=== PATIENT | female | born 1985 | race Caucasian/White ===

== ENCOUNTER 2022-07-13 21:16 | Emergency (ER) | payer BC, SELFPAY ==
[2022-07-13 21:24] VITALS: BP 176/114; PULSE 80; RESP 16; TEMP 36.5; O2SAT 99
--- NOTE | 2022-07-13 22:20 | ED.NAVMDI ---
HPI - Nausea/Vomiting/Diarrhea General Chief complaint: Nausea/Vomiting Stated complaint: Possible Food Poisoning, Vomiting Time Seen by Provider: 07/13/22 21:44 History of Present Illness HPI Narrative: This 36-year-old female comes in with headache, nausea, and vomiting that began this afternoon. She states that she does have a history of migraines but this headache with associated generalized body aches and pains feels somewhat different. She does not report any fevers or sign of infection. She reports some generalized abdominal pain. Related Data Home Medications Medication Instructions Recorded Confirmed trazodone 50 mg tablet 50 mg PO 02/13/22 06/05/22 Previous Rx's Medication Instructions Recorded triamcinolone acetonide 0.025 % 1 applic topical BID #15 grams 02/13/22 topical ointment sumatriptan 20 mg/actuation nasal 20 mg intranasal Q2H PRN migraine 04/05/22 spray headache #6 ea dextroamphetamine-amphetamine 10 10 mg PO QDAY #30 tabs 05/03/22 mg tablet (Adderall) dextroamphetamine-amphetamine 10 10 mg PO QDAY #30 tabs 05/03/22 mg tablet (Adderall) dextroamphetamine-amphetamine 10 10 mg PO QDAY #30 tabs 05/03/22 mg tablet (Adderall) dextroamphetamine-amphetamine 20 40 mg PO QAM #60 tabs 05/04/22 mg tablet (Adderall) dextroamphetamine-amphetamine 20 40 mg PO QAM #60 tabs 05/04/22 mg tablet (Adderall) dextroamphetamine-amphetamine 20 40 mg PO QAM #60 tabs 05/04/22 mg tablet (Adderall) albuterol sulfate 2.5 mg/3 mL 2.5 mg (3 mL) inhalation Q4-6H PRN 06/05/22 (0.083 %) solution for nebulization shortness of breath or wheezing #75 mL azithromycin 250 mg tablet See Rx Instructions PO .COMPLEX #6 06/05/22 tabs prednisone 20 mg tablet 40 mg PO QDAY #10 tabs 06/05/22 Allergies Allergy/AdvReac Type Severity Reaction Status Date / Time Sulfa (Sulfonamide Allergy Severe Hives Verified 06/05/22 16:56 Antibiotics) prochlorperazine Allergy Unknown Verified 06/05/22 16:56 [From Compazine] hydrocodone AdvReac Unknown metabolizes Verified 06/05/22 16:56 too quickly Review of Systems Status of ROS: Reports: 10 or more systems reviewed and unremarkable except as noted in History and below Narrative: Constitutional: No fevers, no weight gain or loss. Eyes: No discharge. No vision changes. HENT: No congestion, no sore throat, no ear pain. She reports a headache. Cardiovascular: No chest pain, no palpitations. Respiratory: No shortness of breath, no wheezes, no cough. Gastrointestinal: Nausea and vomiting with diffuse abdominal pain. Genitourinary: No dysuria, no hematuria. Musculoskeletal: Normal range of motion. Skin: No rashes, no pruritis. Neurological: No dizziness, weakness, sensory change, speech change. Endo/Heme/Allergies: No bruising or bleeding. No polydipsia. Pysch: no suicidality, no anxiety, no insomnia. All other systems reviewed and are negative. [facility] Medical History (Updated 07/13/22 @ 23:39 by John Chavez MD) History of asthma Surgical History (Updated 05/03/22 @ 10:54 by Iliana Pichardo) History of dilation and curettage Family History (Updated 05/03/22 @ 10:55 by Iliana Pichardo) Family/Other ADHD Social History (Updated 05/03/22 @ 10:55 by Iliana Pichardo) Narrative: does not drink alcohol, history of marijuana use, nonsmoker Smoking Status: Never smoker Do you use any of these nicotine containing products: None Second hand tobacco smoke exposure: No How often do you have a drink containing alcohol: never AUDIT-C Alcohol total score: 0 Non-prescribed substance use: denies use Exam Narrative: Exam Narrative: Constitutional: Well-developed, well-nourished, no acute distress. HEENT: Normocephalic, atraumatic. Neck: Normal range of motion. Nontender. Supple. Heart: Regular. No murmurs. Normal rate. Intact distal pulses. Lungs: Clear to auscultation. No chest discomfort. No wheezes, rhonchi, or rales. Abdomen: Normal bowel sounds. Diffuse tenderness. No distinct increase in tenderness when palpating throughout her abdomen. No rebound tenderness. Genitalia: Deferred. Back: No midline tenderness. Normal range of motion. Extremities: Normal range of motion. No injury. Skin: Intact. No rash. Warm. No erythema or pallor. Neurologic: No altered sensation. No weakness. Alert and oriented. Psychiatric: No suicidality. No anxiety or depression. No insomnia. Nursing notes and vitals signs are reviewed. Const: Vital Signs, click to edit/add: Vital Signs - 24 hr 07/13/22 21:24 Temperature 97.7 F Pulse Rate [Right Pulse Oximeter] 80 Respiratory Rate 16 Blood Pressure [Ri ght Upper Arm] 176/114 H Pulse Oximetry 99 Oxygen Delivery Me thod Room Air Course Vital Signs Vital signs: Initial Vital Signs Temperature 97.7 F 07/13/22 21:24 Temperature Source Temporal Artery Scan 07/13/22 21:24 Pulse Rate 80 07/13/22 21:24 Pulse Rhythm 07/13/22 21:24 Respiratory Rate 16 07/13/22 21:24 Blood Pressure 176/114 H 07/13/22 21:24 Blood Pressure Mean 134 07/13/22 21:24 Blood Pressure Position Semi-Fowlers 07/13/22 21:24 Pulse Oximetry 99 07/13/22 21:24 Oxygen Delivery Method 07/13/22 21:24 Vital Signs Temperature 97.7 F 07/13/22 21:24 Pulse Rate 80 07/13/22 21:24 Respiratory Rate 16 07/13/22 21:24 Blood Pressure 176/114 H 07/13/22 21:24 Pulse Oximetry 99 07/13/22 21:24 Oxygen Delivery Method 07/13/22 21:24 Temperature 97.7 F 07/13/22 21:24 Pulse Rate 80 07/13/22 21:24 Respiratory Rate 16 07/13/22 21:24 Blood Pressure 176/114 H 07/13/22 21:24 Pulse Oximetry 99 07/13/22 21:24 Oxygen Delivery Method 07/13/22 21:24 MDM - Nausea/Vomiting/Diarrhea MDM Narrative Medical decision making narrative: This patient comes in reporting generalized body aches and pains including abdominal pain. She also has a headache. She states that the headache occurred at the beginning of these symptoms and included nausea and vomiting. She does have a history of migraine headaches but states that this is overall episode is different than her migraines typically. She arrives with normal vital signs. An IV was established and labs were drawn. Her labs returned with reassuring findings. She did receive IV doses of Toradol 30 mg, Benadryl 50 mg, and Zofran 4 mg. She states that her nausea is well controlled but continues to have similar headache. She then received ketamine 20 mg infused over 20-30 minutes. At the time of discharge the patient appears safe for outpatient management. The treatment plan is reviewed along with written and verbal return precautions. Reasons to return and the importance of close followup were also reviewed. Lab Data Labs: Lab Results 07/13/22 07/13/22 Range/Units 21:50 21:50 WBC 10.18 (4.50-11.00) K/uL RBC 4.97 (4.00-5.20) m/uL Hgb 15.4 (12.0-16.0) gm/dL Hct 43.9 (33.0-51.0) % MCV 88 (80-100) fL MCH 31 (26-34) pg MCHC 35 (32-36) gm/dL RDW Coeff of Doreen 12.0 (11.5-15.5) % Plt Count 276 (140-440) K/uL Neut % (Auto) 90.1 H (42.0-72.0) % Lymph % (Auto) 8.0 L (20-44) % [place] % (Auto) 1.4 (0.0-11.0) % Eos % (Auto) 0.1 (0.0-7.0) % Baso % (Auto) 0.2 (0.0-3.0) % Neut # (Auto) 9.20 H (1.7-7.0) K/uL Lymph # (Auto) 0.80 L (0.90-2.90) K/uL [place] # (Auto) 0.10 (0.00-0.90) K/UL Eos # (Auto) 0.01 (0.00-0.50) K/uL Baso # (Auto) 0.02 (0.00-0.30) K/uL Sodium 137 (135-149) mmol/L Potassium 3.3 L (3.6-5.1) mmol/L Chloride 104 (96-114) mmol/L Carbon Dioxide 23 (20-32) mmol/L BUN 17 (5-24) mg/dL Creatinine 0.7 (0.5-1.5) mg/dL Estimated GFR 113 ml/min Glucose 151 H (60-115) mg/dL Calcium 9.7 (8.4-10.6) mg/dL Discharge Plan Discharge Clinical Impression: Gastroenteritis, Migraine Patient Disposition: Home, Self-Care Condition: Improved Additional Instructions: Continue current plans. Use Zofran medication as needed and directed for nausea. Increase diet as tolerated. Follow up with MD or return if worsening. Prescriptions: No Action trazodone 50 mg tablet 50 mg PO Label Comments: TAKE ONE TO TWO TABLETS BY MOUTH AT BEDTIME IF NEEDED triamcinolone acetonide 0.025 % ointment 1 applic topical BID Qty: 15 0RF azithromycin 250 mg tablet See Rx Instructions PO .COMPLEX Qty: 6 0RF Rx Instructions: For 250 mg dose pack: take 500 mg today (day 1), then 250 mg for 4 days (days 2-5) PO albuterol sulfate 2.5 mg /3 mL (0.083 %) solution for nebulization 2.5 mg inhalation Q4-6H PRN (Reason: shortness of breath or wheezing) Qty: 75 0RF prednisone 20 mg tablet 40 mg PO QDAY Qty: 10 0RF sumatriptan 20 mg/actuation spray,non-aerosol 20 mg intranasal Q2H PRN (Reason: migraine headache) Qty: 6 1RF Rx Instructions: ONE SPRAY IN ONE NOSTRIL AT ONSET OF HEADACHE, MAY REPEAT ONCE IN 2HRS PRN, MAX 2 SPRAYS/24 HR dextroamphetamine-amphetamine [Adderall] 10 mg tablet 10 mg PO QDAY Qty: 30 0RF dextroamphetamine-amphetamine [Adderall] 10 mg tablet 10 mg PO QDAY Qty: 30 0RF dextroamphetamine-amphetamine [Adderall] 10 mg tablet 10 mg PO QDAY Qty: 30 0RF dextroamphetamine-amphetamine [Adderall] 20 mg tablet 40 mg PO QAM Qty: 60 0RF dextroamphetamine-amphetamine [Adderall] 20 mg tablet 40 mg PO QAM Qty: 60 0RF dextroamphetamine-amphetamine [Adderall] 20 mg tablet 40 mg PO QAM Qty: 60 0RF Follow Up/Referrals: Provider,Not a Local [Primary Care Provider] - Stand Alone Forms: [employer] Info Instructions
[2022-07-13] MEDS: ONDANSETRON 2 MG/ML inj 4 MG IVP (22:27)
[2022-07-13] MEDS: 0.9 % SODIUM CHLORIDE 1000 ml 1,000 ML IV (22:27)
[2022-07-13] MEDS: diphenhydrAMINE 50 MG/ML inj IVP (22:28)
[2022-07-13] MEDS: KETOROLAC 30 MG/ML inj IVP (22:28)
[2022-07-13 22:45] LABS: Basophils Absolute Auto 0.02 K/uL (0.00-0.30); Basophils Percent Auto 0.2 % (0.0-3.0); Eosinophils Absolute Auto 0.01 K/uL (0.00-0.50); Eosinophils Percent Auto 0.1 % (0.0-7.0); Hematocrit 43.9 % (33.0-51.0); Hemoglobin* 15.4 gm/dL (12.0-16.0); Immature Granulocytes Abs Auto 0.02 K/uL (0.00-0.30); Immature Granulocytes Pct Auto 0.2 %; Mean Corpuscular HGB Conc 35 gm/dL (32-36); Mean Corpuscular Hemoglobin 31 pg (26-34); Mean Corpuscular Volume 88 fL (80-100); Monocytes Percent Auto 1.4 % (0.0-11.0); Neutrophils Percent Auto 90.1 % (42.0-72.0); Platelet Count* 276 K/uL (140-440); Red Blood Count 4.97 m/uL (4.00-5.20); Slide Review Reflex No; White Blood Count* 10.18 K/uL (4.50-11.00)
[2022-07-13 22:56] LABS: Chloride* 104 mmol/L (96-114)
[2022-07-13 22:57] LABS: Potassium* 3.3 mmol/L (3.6-5.1); Sodium* 137 mmol/L (135-149)
[2022-07-13 22:59] LABS: Creatinine* 0.7 mg/dL (0.5-1.5); Estimated Glomerular Filt Rate 113 ml/min
[2022-07-13 23:00] LABS: Blood Urea Nitrogen* 17 mg/dL (5-24); Calcium* 9.7 mg/dL (8.4-10.6); Carbon Dioxide* 23 mmol/L (20-32); Glucose* 151 mg/dL (60-115)
[2022-07-13] MEDS: KETAMINE HCL 20 MG in 0.9 % SODIUM CHLORIDE 100 ml 100 ML 300.6 MG IVPB (23:44)
[2022-07-14 00:26] VITALS: BP 135/72; PULSE 65; RESP 18; O2SAT 99
== END 2022-07-14 00:58 | disposition home or self-care (01) ==
PROVIDERS: Emergency Provider Emergency Medicine Emergency Medical Services
DX: K52.9 Noninfective gastroenteritis and colitis, unspecified (principal); G43.909 Migraine, unspecified, not intractable, without status migrainosus
CPT/HCPCS: 36415; 80048; 85025; 96365; 96375; 99284; J1200; J1885; J2405; J3490; J7030

== ENCOUNTER 2023-04-27 20:11 | Emergency (ER) | payer BC, SELFPAY ==
[2023-04-27 20:34] VITALS: BP 136/90; PULSE 77; RESP 16; TEMP 36.6; O2SAT 99; BMI 25.7
[2023-04-27] MEDS: 0.9 % SODIUM CHLORIDE 1000 ml 1,000 ML IV ×2 (21:25→22:08)
[2023-04-27 21:27] LABS: Basophils Absolute Auto 0.02 K/uL (0.00-0.30); Basophils Percent Auto 0.3 % (0.0-3.0); Hematocrit 43.1 % (33.0-51.0); Hemoglobin* 14.8 gm/dL (12.0-16.0); Immature Granulocytes Abs Auto 0.01 K/uL (0.00-0.30); Immature Granulocytes Pct Auto 0.1 %; Lymphocytes Percent Auto 6.6 % (20-44); Mean Corpuscular HGB Conc 34 gm/dL (32-36); Mean Corpuscular Hemoglobin 31 pg (26-34); Mean Corpuscular Volume 90 fL (80-100); Monocytes Percent Auto 3.8 % (0.0-11.0); Neutrophils Percent Auto 89.2 % (42.0-72.0); Platelet Count* 267 K/uL (140-440); Red Blood Count 4.79 m/uL (4.00-5.20); White Blood Count* 7.37 K/uL (4.50-11.00)
[2023-04-27 21:31] LABS: Slide Review Reflex No
[2023-04-27] MEDS: ONDANSETRON 2 MG/ML inj 4 MG IVP (21:35)
[2023-04-27 21:42] LABS: Chloride* 98 mmol/L (96-114); Potassium* 3.9 mmol/L (3.6-5.1); Sodium* 136 mmol/L (135-149)
[2023-04-27 21:44] LABS: Creatinine* 0.7 mg/dL (0.5-1.5); Est. Creatinine Clearance* 89.26; Estimated Glomerular Filt Rate 113 ml/min
[2023-04-27 21:45] LABS: Anion Gap 15 mEq/L (7-15); Blood Urea Nitrogen* 14 mg/dL (5-24); Calcium* 9.2 mg/dL (8.4-10.6); Carbon Dioxide* 23 mmol/L (20-32); Glucose* 101 mg/dL (60-115)
--- NOTE | 2023-04-27 21:53 | ED_ITS ---
HPI - General Adult General Chief complaint: Nausea/Vomiting Stated complaint: dehydrated, nausea Time Seen by Provider: 04/27/23 20:37 History of Present Illness HPI narrative: Patient is a 37-year-old woman who comes in today with severe nausea vomiting body aches and malaise. She has been sick for last 24 hours. She has had no diarrhea she has been vomiting anything she eats or drinks. She has had no significant stiff neck but does have headache bilaterally. She has had no rec ent travel or sick contacts. She states that she has her menses currently and is not . Symptoms she describes as moderate to severe. Patient has been treated in the ER in the past for gastroenteritis. Patient scribes no chest pain shortness a breath orthopnea PND rash were joint stiffness. Related Data Home Medications Medication Instructions Recorded Confirmed trazodone 50 mg tablet 50 mg PO 02/13/22 09/08/22 bupropion HCl 200 mg tablet,12 hr 200 mg PO QAM 09/08/22 09/08/22 sustained-release irbesartan 150 mg tablet 150 mg PO DAILY 09/08/22 09/08/22 sumatriptan 20 mg/actuation nasal 20 mg intranasal Q2H PRN migraine 09/08/22 09/08/22 spray headache Previous Rx's Medication Instructions Recorded albuterol sulfate 2.5 mg/3 mL 2.5 mg (3 mL) inhalation Q4-6H PRN 06/05/22 (0.083 %) solution for nebulization shortness of breath or wheezing #75 mL fluconazole 150 mg tablet 150 mg PO Q3D 2 doses #2 tabs 09/08/22 (Diflucan) triamcinolone acetonide 0.1 % 1 applic topical BID #15 grams 09/08/22 topical cream Allergies Allergy/AdvReac Type Severity Reaction Status Date / Time prochlorperazine Allergy Severe Verified 04/27/23 20:41 [From Compazine] Sulfa (Sulfonamide Allergy Severe Hives Verified 09/08/22 12:38 Antibiotics) fluticasone [From Flonase] Allergy Verified 04/27/23 20:41 hydrocodone AdvReac Unknown metabolizes Verified 09/08/22 12:38 too quickly Review of Systems Status of ROS: Reports: 10 or more systems reviewed and unremarkable except as noted in History and below [facility] Medical History History of asthma ?Z87.09 - Personal history of other diseases of the respiratory system (ICD- 10) Surgical History History of dilation and curettage ?Z98.890 - Other specified postprocedural states (ICD-10) Family History Family/Other ADHD Social History Narrative: Mgpn-jl-pgiu mom. . Nonsmoker. No illicit drug use. Smoking Status: Former smoker Do you use any of these nicotine containing products: None Second hand tobacco smoke exposure: No How often do you have a drink containing alcohol: never AUDIT-C Alcohol total score: 0 Non-prescribed substance use: denies use Exam Narrative: Exam Narrative: EXAM GENERAL: Patient appears anxious and uncomfortable. EYES: No scleral icterus. LYMPH: No supraclavicular or cervical lymphadenopathy. SKIN: Visible skin seen during exam normal or with benign process only. EXT: No dependent lower extremity pedal edema. HEART: Regular rate and rhythm with no murmurs, rubs, or gallops. LUNGS: Clear to auscultation bilaterally with no crackles or wheezes. ABD: Soft, non tender, non distended. PSYCH: Good eye contact, speech is not pressured. Neurologic cranial nerves 2-12 grossly intact no focal defects. Const: Vital Signs, click to edit/add: Vital Signs - 24 hr 04/27/23 20:34 Temperature 97.8 F Pulse Rate [Pulse Oximeter] 77 Respiratory Rate 16 Blood Pressure [Ri ght Upper Arm] 136/90 H Pulse Oximetry 99 Oxygen Delivery Me thod Room Air Course Course ED Course: Patient seen examined. 2 L normal saline given. 4 mg IV Zofran 30 mg IV Toradol given with improvement of symptoms. Laboratory studies personally reviewed. Vital Signs Vital signs: Initial Vital Signs Temperature 97.8 F 04/27/23 20:34 Temperature Source Temporal Artery Scan 04/27/23 20:34 Pulse Rate 77 04/27/23 20:34 Respiratory Rate 16 04/27/23 20:34 Blood Pressure 136/90 H 04/27/23 20:34 Blood Pressure Mean 105 04/27/23 20:34 Blood Pressure Position Sitting 04/27/23 20:34 Pulse Oximetry 99 04/27/23 20:34 Oxygen Delivery Method Room Air 04/27/23 20:34 Vital Signs Temperature 97.8 F 04/27/23 20:34 Pulse Rate 77 04/27/23 20:34 Respiratory Rate 16 04/27/23 20:34 Blood Pressure 136/90 H 04/27/23 20:34 Pulse Oximetry 99 04/27/23 20:34 Oxygen Delivery Method Room Air 04/27/23 20:34 Temperature 97.8 F 04/27/23 20:34 Pulse Rate 77 04/27/23 20:34 Respiratory Rate 16 04/27/23 20:34 Blood Pressure 136/90 H 04/27/23 20:34 Pulse Oximetry 99 04/27/23 20:34 Oxygen Delivery Method Room Air 04/27/23 20:34 Medical Decision Making MDM Narrative Medical decision making narrative: Patient is a 37-year-old woman who presents with acute gastroenteritis. Laboratory studies are unremarkable. Patient has no significant findings on exam other than those consistent with general malaise and body aches. Patient was treated with normal saline Toradol Zofran and will be discharged on oral Zofran as needed. She can advance her diet activity as tolerated. Differential diagnosis includes but is not limited to gastroenteritis acute appendicitis cystitis viral syndrome meningitis. Lab Data Labs: Lab Results 04/27/23 Range/Units 21:18 WBC 7.37 (4.50-11.00) K/uL RBC 4.79 (4.00-5.20) m/uL Hgb 14.8 (12.0-16.0) gm/dL Hct 43.1 (33.0-51.0) % MCV 90 (80-100) fL MCH 31 (26-34) pg MCHC 34 (32-36) gm/dL RDW Coeff of Doreen 12.0 (11.5-15.5) % Plt Count 267 (140-440) K/uL Neut % (Auto) 89.2 H (42.0-72.0) % Lymph % (Auto) 6.6 L (20-44) % [place] % (Auto) 3.8 (0.0-11.0) % Eos % (Auto) 0.0 (0.0-7.0) % Baso % (Auto) 0.3 (0.0-3.0) % Neut # (Auto) 6.60 (1.7-7.0) K/uL Lymph # (Auto) 0.50 L (0.90-2.90) K/uL [place] # (Auto) 0.30 (0.00-0.90) K/UL Eos # (Auto) 0.00 (0.00-0.50) K/uL Baso # (Auto) 0.02 (0.00-0.30) K/uL Abs Immat Gran (auto) 0.01 (0.00-0.30) K/uL Imm/Tot Granulo (auto) 0.1 % Sodium 136 (135-149) mmol/L Potassium 3.9 (3.6-5.1) mmol/L Chloride 98 (96-114) mmol/L Carbon Dioxide 23 (20-32) mmol/L Anion Gap 15 (7-15) mEq/L BUN 14 (5-24) mg/dL Creatinine 0.7 (0.5-1.5) mg/dL Estimated Creat Clear 89.26 Estimated GFR 113 ml/min Glucose 101 (60-115) mg/dL Calcium 9.2 (8.4-10.6) mg/dL Discharge Plan Discharge Clinical Impression: Gastroenteritis Condition: Stable Instructions: Gastroenteritis (ED) Additional Instructions: Zofran as needed Tylenol Motrin Rest Fluids Activity Level: No Restrictions Discharge Diet: Regular Prescriptions: No Action sumatriptan 20 mg/actuation spray,non-aerosol 20 mg intranasal Q2H PRN (Reason: migraine headache) Rx Instructions: ONE SPRAY IN ONE NOSTRIL AT ONSET OF HEADACHE, MAY REPEAT ONCE IN 2HRS PRN, MAX 2 SPRAYS/24 HR bupropion HCl 200 mg tablet sustained-release 12 hr 200 mg PO QAM irbesartan 150 mg tablet 150 mg PO DAILY fluconazole [Diflucan] 150 mg tablet 150 mg PO Q3D 0 Days Qty: 2 0RF Rx Instructions: 1 po stat, may repeat in 3 days triamcinolone acetonide 0.1 % cream 1 applic topical BID Qty: 15 0RF Rx Instructions: apply sparingly to affected sola trazodone 50 mg tablet 50 mg PO Patient Comments: TAKE ONE TO TWO TABLETS BY MOUTH AT BEDTIME IF NEEDED albuterol sulfate 2.5 mg /3 mL (0.083 %) solution for nebulization 2.5 mg inhalation Q4-6H PRN (Reason: shortness of breath or wheezing) Qty: 75 0RF Follow Up/Referrals: Provider,Not a Local [Primary Care Provider] - Stand Alone Forms: [employer] Info Instructions
[2023-04-27] MEDS: KETOROLAC 30 MG/ML inj IVP (22:09)
--- NOTE | 2023-04-29 11:52 | ED.NURSE ---
pt called in with concerns that she was not tested for Covid during her visit. I explained to the pt that at the time of the visit the provided did not order a Covid swab based on presenting symptoms. I also informed the pt that she was welcome to be seen again in the ER or there are always the option to test at home with a at home test from a drug store. The pt stated she wanted to talk with the provider, I informed her that he was not here today. I did given the pt hospital number so that she could follow up with the pt advocate with further concerns. pt promptly disconnected the phone call with typewriter mechanic.
== END 2023-04-27 22:40 | disposition home or self-care (01) ==
PROVIDERS: Emergency Provider Internal Medicine
DX: K52.9 Noninfective gastroenteritis and colitis, unspecified (principal)
CPT/HCPCS: 36415; 80048; 81003; 85025; 96374; 96375; 99283; J1885; J2405; J7030

== ENCOUNTER 2024-10-31 10:55 | Emergency (ER) | payer BC, SELFPAY ==
--- OUTSIDE RECORDS SUMMARY | 2024-10-31 10:57 | XMS_ITS | Encounter Summary ---
Author Organization [facility] Address [address] [place] [address]. [place] [address] Care Team Providers Care Primary Therapist Name Role Phone Bianka Bourgeois PA-C Unavailable [phone] Ramon Reza PA-C Primary Care Provider [phone] Amarilys Hernandez Unavailable Unavailable Ramon Reza PA-C Unavailable [phone] Chelsea Alcantar RN Unavailable [phone] Ramon Reza PA-C Unavailable [phone] [facility]- Primary Care Provider No Ref-Primary, Physician Primary Care Provider [facility] Primary Care Provider Reason for Visit * Reason Onset Date Comments Refill Request 03/21/2018 Ajit Encounter Details Date Type Department Care Team (Late st Contact Info) Description 03/21/2018 MyC Medical Advice [facility] [address], [address] [place] [address] Ramon Reza PA-C [address] [place] [address] Refill Request (Ajit) Social History Tobacco Use Types Packs/Day Years Used Date Smoking Tobacco: Former Cigarettes Q uit: 05/28/2017 Smokeless Tobacco: Never Alcohol Use Standard Drinks/Week Comments No 0 (1 standard drink = 0.6 oz pur e alcohol) PHQ-2 Answer Date Recorded PHQ-2 Score 2 02/15/2018 Comments No Sex and Gender Information Value Date Recorded Sex Assigned at Not on file 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 Gender Identity Not on file Sexual Orientation Not on file documented as of this encounter Plan of Treatment Not on file documented as of this encounter Visit Diagnoses Not on filedocumented in this encounter Additional Health Concerns Assessment Noted Time PHQ-9 Depression Total Score: 7 02/17/20 18 7:19 AM CDT documented as of this encounter Care Teams Primary Therapist Relationship Specialty Start Date End Date Ramon Reza PA-C PCP - General Physician Quality Assurance Qa Lab Technician - Medical 04/28/14 09/23/18 Ramon Reza PA-C [address] [place] [address] PCP - Assigned PCP 05/03/14 08/27/18 [facility]- [address] [place] [address] PCP - General 09/24/18 10/23/18 No Ref-Primary, Physician PCP - General 10/24/18 09/25/[address] [address] PCP - General Internal Medicine 09/26/19 Bianka Bourgeois PA-C Physician Quality Assurance Qa Lab Technician 05/14/11 Amarilys Hernandez, [facility] Clinic Business Information Manager 03/22/18 Chelsea Alcantar, RN Lead Business Information Manager 07/03/18 9 Ramon Reza PA-C [address] [place] [address] Assigned PCP 05/03/14 08/06/21 documented as of this encounter
--- OUTSIDE RECORDS SUMMARY | 2024-10-31 10:57 | XMS_ITS | Encounter Summary ---
Author Organization [facility] Address [address] [place] [address]. [place] [address] Care Team Providers Care Electric Motor Repairing Supervisor Name Role Phone Bianka Bourgeois PA-C Unavailable [phone] Ramon Reza PA-C Primary Care Provider [phone] Ramon Reza PA-C Unavailable [phone] Chelsea Alcantar RN Unavailable [phone] Ramon Reza PA-C Unavailable [phone] [facility]- Primary Care Provider No Ref-Primary, Physician Primary Care Provider [facility] Primary Care Provider Reason for Visit * Reason Onset Date Comments Refill Request 06/20/2018 Adderall 10mg Encounter Details Date Type Department Care Team (Late st Contact Info) Description 06/20/2018 MyC Medical Advice [facility] [address] [facility], [address] [place] [address] Ramon Reza PA-C [address] [place] [address] Refill Request (Adderall 10mg) Social History Tobacco Use Types Packs/Day Years Used Date Smoking Tobacco: Former Cigarettes Q uit: 05/28/2017 Smokeless Tobacco: Never Alcohol Use Standard Drinks/Week Comments No 0 (1 standard drink = 0.6 oz pur e alcohol) PHQ-2 Answer Date Recorded PHQ-2 Score 2 02/15/2018 Comments No Sex and Gender Information Value Date Recorded Sex Assigned at Not on file Legal 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 RECOVERY ROOM NURSE Gender Identity Not on file Sexual Orientation Not on file documented as of this encounter Miscellaneous Notes * Telephone Encounter - Lizette Lobo RN - 06/28/2018 2:21 PM CST Pt calling into clinic again, (caller ID shows name of Praveen Daniels) insistent that she has an appt today at 2:20pm, explained she had an appt yesterday but not today Belligerent, big frequent sighs, I don't know why I have to come in anyway Explained on last OV 12.7.18 she was instructed to f/u in one month well, its not the 7th yet, so just send me the prescription Listen, I don't have time to talk, I'm standing outside my son's school Noticed she has not had her 10 mg tabs filled since Mar, when asked if if she has been taking it, she said like I said,I don't have time to talk explained if I was going to request a refill from the provider without an appt it would help to know how she has been taking it. I'll tell her later, or write a note Demanding refill on Adderall 10 mg, last filled 10.4.18, last OV 12.7.18 with plan to f/u in 1 month Route to provider to review and advise Lizette Lobo RN Nurse Triage VERY ROOM NURSE * Telephone Encounter - Laverne Marshall - 06/21/2018 9:48 AM CST PT stopped in clinic to check on status of RXs. I told her they were not ready and she left. VERY ROOM NURSE * Telephone Encounter - Nell Gonzalez MD - 06/21/2018 8:04 AM RECOVERY ROOM NURSE Please help with this patient. She is very demanding. She is demanding a refill on her stimulant, to help her sleep, which makes no sense. Stimulants are controlled medications and she should be seenfor this every 3 months, with prescriptions printed. Her urine drug screen is positive for illegal drugs. I will not refill stimulants or any controlled medications for this patient. I believe she isharassing Ramon and she is now calling her medical knowledge up for debate. VERY ROOM NURSE * Telephone Encounter - Nell Gonzalez MD - 06/20/2018 1:04 PM RECOVERY ROOM NURSE appt due VERY ROOM NURSE * Telephone Encounter - Nell Gonzalez MD - 06/20/2018 1:03 PM RECOVERY ROOM NURSE Last time this patient was seen, she complained about me and made up stories about the urine drug screen she agreed to take(and she failed it) I will not every refill this or any controlled medication for this patient. She has to be seen every 3 months, FOR this condition, with her pcp, it should not come in as a refill request. That is how we refill these meds for all our patients, not just her VERY ROOM NURSE * Telephone Encounter - Yoselin Ivory RN - 06/20/2018 10:01 AM CST Images from the original note were not included. Adderall 10mg Last Written Prescription Date: 04/18/2018 Last Fill Quantity: 30, # refills: 0 Last Office Visit: 05/31/2018 Future Office visit: Routing refill request to provider for review/approval because: Drug not on the [facility] or [facility] refill protocol or controlled substance. MUSIC VIDEO PRODUCER checked 06/20/2018: VERY ROOM NURSE documented in this encounter Plan of Treatment Not on file documented as of this encounter Visit Diagnoses Diagnosis Attention deficit hyperactivity disorder (ADHD), other type documented in this encounter Additional Health Concerns Assessment Noted Time PHQ-9 Depression Total Score: 7 02/17/20 18 7:19 AM CDT documented as of this encounter Care Teams Electric Motor Repairing Supervisor Relationship Specialty Start Date End Date Ramon Reza PA-C PCP - General Physician Body Technician - Medical 04/28/14 09/23/18 Ramon Reza PA-C [address] [address] [address] PCP - Assigned PCP 05/03/14 08/27/18 [facility]- [address], [place] [address] PCP - General 09/24/18 10/23/18 No Ref-Primary, Physician PCP - General 10/24/18 09/25/[address] 6[address] PCP - General Internal Medicine 09/26/19 Bianka Bourgeois PA-C Physician Body Technician 05/14/11 Chelsea Alcantar RN Lead Spooling Operator 07/03/18 9 Ramon Reza PA-C [address] [address] [address] Assigned PCP 05/03/14 08/06/21 documented as of this encounter
--- OUTSIDE RECORDS SUMMARY | 2024-10-31 10:57 | XMS_ITS | Encounter Summary ---
Author Organization [facility] Address [address] [place] [address] Care Team Providers Care Window Assembler Name Role Phone Bianka BourgeoisC Unavailable [phone] Ramon Reza PA-C Primary Care Provider [phone] Ramon Reza PA-C Unavailable [phone] Chelsea Alcantar RN Unavailable [phone] Ramon Reza-C Unavailable [phone] [facility]- Primary Care Provider No Ref-Primary, Physician Primary Care Provider [facility] Primary Care Provider Encounter Details Date Type Department Care Team (Late st Contact Info) Description 08/02/2018 MyC Medical Advice [facility] [address] [facility], [address] [place] [address] Nely Sigala MA Social History Tobacco Use Types Packs/Day Years Used Date Smoking Tobacco: Former Cigarettes Q uit: 05/28/2017 Smokeless Tobacco: Never Alcohol Use Standard Drinks/Week Comments No 0 (1 standard drink = 0.6 oz pur e alcohol) PHQ-2 Answer Date Recorded PHQ-2 Score 2 02/15/2018 Comments No Sex and Gender Information Value Date Recorded Sex Assigned at Not on file Legal 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 MATERIAL CONTROL MANAGER Gender Identity Not on file Sexual Orientation Not on file documented as of this encounter Plan of Treatment Not on file documented as of this encounter Visit Diagnoses Not on filedocumented in this encounter Additional Health Concerns Assessment Noted Time PHQ-9 Depression Total Score: 7 02/17/20 18 7:19 AM CDT documented as of this encounter Care Teams Window Assembler Relationship Specialty Start Date End Date Ramon Reza PA-C PCP - General Physician Collision Repair Technician - Medical 04/28/14 09/23/18 Ramon Reza PA-C [address] [address] [address] PCP - Assigned PCP 05/03/14 08/27/18 [facility]- [address] [place] [address] PCP - General 09/24/18 10/23/18 No Ref-Primary, Physician PCP - General 10/24/18 09/25/[address] [address] PCP - General Internal Medicine 09/26/19 Bianka Bourgeois PA-C Physician Collision Repair Technician 05/14/11 Chelsea Alcantar, RN Lead Hims Manager 07/03/18 9 Ramon Reza PA-C [address] [address] [address] Assigned PCP 05/03/14 08/06/21 documented as of this encounter
--- OUTSIDE RECORDS SUMMARY | 2024-10-31 10:57 | XMS_ITS | Encounter Summary ---
Author Organization [facility] Address [address] [place] [address] Care Team Providers Care Tobacco Hanger Name Role Phone Christelle Bianka CARDONA Unavailable [phone] Ramon Reza PA-C Primary Care Provider [phone] Ramon Reza PA-C Unavailable [phone] Chelsea Alcantar RN Unavailable [phone] Ramon Reza PA-C Unavailable [phone] [facility]- Primary Care Provider No Ref-Primary, Physician Primary Care Provider [facility] Primary Care Provider Encounter Details Date Type Department Care Team (Late st Contact Info) Description 08/02/2018 MyC Medical Advice [facility] Care Coordination [facility] [address] [place] [address] Chelsae Alcantar, RN Social History Tobacco Use Types Packs/Day Years Used Date Smoking Tobacco: Former Cigarettes Q uit: 05/28/2017 Smokeless Tobacco: Never Alcohol Use Standard Drinks/Week Comments No 0 (1 standard drink = 0.6 oz pur e alcohol) PHQ-2 Answer Date Recorded PHQ-2 Score 2 02/15/2018 Comments No Sex and Gender Information Value Date Recorded Sex Assigned at Not on file Legal 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 DIRECTOR CLINICAL PHARMACOLOGY Gender Identity Not on file Sexual Orientation Not on file documented as of this encounter Plan of Treatment Not on file documented as of this encounter Visit Diagnoses Not on filedocumented in this encounter Additional Health Concerns Assessment Noted Time PHQ-9 Depression Total Score: 7 02/17/20 18 7:19 AM CDT documented as of this encounter Care Teams Tobacco Hanger Relationship Specialty Start Date End Date Ramon Reza PA-C PCP - General Physician Refinery Operator Coking - Medical 04/28/14 09/23/18 Ramon Reza PA-C [address] [address] [address] PCP - Assigned PCP 05/03/14 08/27/18 [facility]- [address], [place] [address] PCP - General 09/24/18 10/23/18 No Ref-Primary, Physician PCP - General 10/24/18 09/25/[address] [address] PCP - General Internal Medicine 09/26/19 Bianka Bourgeois PA-C Physician Refinery Operator Coking 05/14/11 Chelsea Alcantar, RN Lead Clinical Rn 07/03/18 9 Ramon Reza PA-C [address] [address] [address] Assigned PCP 05/03/14 08/06/21 documented as of this encounter
--- OUTSIDE RECORDS SUMMARY | 2024-10-31 10:57 | XMS_ITS | Encounter Summary ---
Author Organization [facility] Address [address] [place] [address] Care Team Providers Care Artist Model Name Role Phone Bianka Bourgeois PA-C Unavailable [phone] Ramon Reza PA-C Primary Care Provider [phone] Ramon Reza PA-C Unavailable [phone] Chelsea Alcantar RN Unavailable [phone] Ramon Reza PA-C Unavailable [phone] [facility]- Primary Care Provider No Ref-Primary, Physician Primary Care Provider [facility] Primary Care Provider Reason for Visit * Reason Onset Date Comments Refill Request 07/31/2018 eszopiclone (ANAHI ESTA) 3 MG tablet Referral 07/31/2018 Sleep study Encounter Details Date Type Department Care Team (Late st Contact Info) Description 07/31/2018 MyC Medical Advice [place] [id number] [facility], [address] [place] [address] Ramon Reza PA-C [address] [place] [address] Refill Request (eszopiclone (LUNESTA) 3 MG... Social History Tobacco Use Types Packs/Day Years Used Date Smoking Tobacco: Former Cigarettes Q uit: 05/28/2017 Smokeless Tobacco: Never Alcohol Use Standard Drinks/Week Comments No 0 (1 standard drink = 0.6 oz pur e alcohol) PHQ-2 Answer Date Recorded PHQ-2 Score 2 02/15/2018 Comments No Sex and Gender Information Value Date Recorded Sex Assigned at Not on file Legal 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 DAY CARE WORKER Gender Identity Not on file Sexual Orientation Not on file documented as of this encounter Miscellaneous Notes * Telephone Encounter - Galina Padilla - 07/31/2018 9:24 AM DAY CARE WORKER [facility] will notify patient when ready to be picked up. Leo Padilla Director Of Community Education 07/31/18 9:24 AM CARE WORKER * Telephone Encounter - Ramon Reza PA-C - 07/31/2018 8:11 AM DAY CARE WORKER Sleep referral is in her chart from 10/01/17. I will refill her med and see her Sunday. Ramon CARE WORKER * Telephone Encounter - Yoselin Ivory RN - 07/31/2018 7:45 AM CST Lunesta 3mg Last Written Prescription Date: 06/21/2018 Last Fill Quantity: 30, # refills: 0 Last Office Visit: 05/31/2018 Future Office visit: Next 5 appointments (look out 90 days) Aug 05, 2018 10:00 AM DAY CARE WORKER Matt Koehler with Ramon Reza PA-C [facility] [address] [place] [address], [address] [facility] [address] Routing refill request to provider for review/approval because: Drug not on the [facility], [facility] or [facility] refill protocol or controlled substance. Yoselin Ivory RN CARE WORKER documented in this encounter Plan of Treatment Not on file documented as of this encounter Visit Diagnoses Diagnosis Other insomnia documented in this encounter Additional Health Concerns Assessment Noted Time PHQ-9 Depression Total Score: 7 02/17/20 18 7:19 AM CDT documented as of this encounter Care Teams Artist Model Relationship Specialty Start Date End Date Ramon Reza PA-C PCP - General Physician Energy Management Specialist - Medical 04/28/14 09/23/18 Ramon Reza PA-C [address] [address] [address] PCP - Assigned PCP 05/03/14 08/27/18 [facility]- [address], [place] [address] PCP - General 09/24/18 10/23/18 No Ref-Primary, Physician PCP - General 10/24/18 09/25/[address] [address] PCP - General Internal Medicine 09/26/19 Bianka Bourgeois PA-C Physician Energy Management Specialist 05/14/11 Chelsea Alcantar, RN Lead Aircraft Design Engineer 07/03/18 9 Ramon Reza PA-C [address] [address] [address] Assigned PCP 05/03/14 08/06/21 documented as of this encounter
--- OUTSIDE RECORDS SUMMARY | 2024-10-31 10:58 | XMS_ITS | Encounter Summary ---
Author Organization [facility] Address [address] [place] [address] Care Team Providers Care Disabilities Services Officer Name Role Phone Bianka Bourgeois PA-C Unavailable [phone] Ramon Reza PA-C Primary Care Provider [phone] Amarilys Hernandez Unavailable Unavailable Ramon Reza PA-C Unavailable [phone] Chelsea Alcantar RN Unavailable [phone] Ramon Reza PA-C Unavailable [phone] [facility]- Primary Care Provider No Ref-Primary, Physician Primary Care Provider [facility] Primary Care Provider Reason for Visit * Reason Onset Date Comments MyChart Communication 02/22/2018 Encounter Details Date Type Department Care Team (Late st Contact Info) Description 02/22/2018 MyC Medical Advice [facility] [address] [facility], [address] [place] [address] Ramon Reza PA-C [address] [place] [address] MyChart Communication Social History Tobacco Use Types Packs/Day Years Used Date Smoking Tobacco: Former Cigarettes Q uit: 05/28/2017 Smokeless Tobacco: Never Alcohol Use Standard Drinks/Week Comments No 0 (1 standard drink = 0.6 oz pur e alcohol) PHQ-2 Answer Date Recorded PHQ-2 Score 2 02/15/2018 Comments No Sex and Gender Information Value Date Recorded Sex Assigned at Not on file Legal 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 DOMESTIC HOUSEKEEPER Gender Identity Not on file Sexual Orientation Not on file documented as of this encounter Miscellaneous Notes * Telephone Encounter - Catia Woods RN - 02/26/2018 2:27 PM CDT Pt calling and wants FM nurse to call her TODAY and is very upset about her ADD medications. documented in this encounter Plan of Treatment Not on file documented as of this encounter Visit Diagnoses Not on filedocumented in this encounter Additional Health Concerns Assessment Noted Time PHQ-9 Depression Total Score: 7 02/17/20 18 7:19 AM CDT documented as of this encounter Care Teams Disabilities Services Officer Relationship Specialty Start Date End Date Ramon Reza PA-C PCP - General Physician Claims Assistant - Medical 04/28/14 09/23/18 Ramon Reza PA-C [address] [place] [address] PCP - Assigned PCP 05/03/14 08/27/18 [facility]- [address], [place] [address] PCP - General 09/24/18 10/23/18 No Ref-Primary, Physician PCP - General 10/24/18 09/25/[address] [address] PCP - General Internal Medicine 09/26/19 Bianka Bourgeois PA-C Physician Claims Assistant 05/14/11 Amarilys Hernandez, [facility] Clinic Main Line Assembler 03/22/18 Chelsea Alcantar, RN Lead Main Line Assembler 07/03/18 9 Ramon Reza PA-C [address] [place] [address] Assigned PCP 05/03/14 08/06/21 documented as of this encounter
--- OUTSIDE RECORDS SUMMARY | 2024-10-31 10:58 | XMS_ITS | Data Portability ---
Author Organization [facility] SPEECH THERAPY ASSISTANT, [id number] Address [address] [place] [address] Assessment Encounter Date Assessment Date Assessment LastModified by Organization Details LastModified Time 07/19/2020 07/19/2020 Bilateral breast pruritis, currently L>R. No evidence of mastitis or breast abcess. Total time spent in discussion of patient's concerns, examination, counseling with shared decision making, discussing treatment modalities and documentation was 15 minutes. Not available 07/19/2020 16:25:56 Plan of Treatment Reminders Order Date Submit Date Provider Last Modified By Organization Details Last Modified Time Details Appointments None record ed. Lab None record ed. Referral None record ed. Procedures None record ed. Surgeries None record ed. Imaging None record ed. Medication Orders None record ed. Patient TargetsNo targets recorded. Patient Instructions Encounter Date Encounter Id Patient Instructions Last Modified By Organization Details Last Modified Time 07/19/2020 [id number] Use topical Caladryl lotion or topical hydrocortisone to the affected area. May take oral Benadryl if necessary (but not with the Caladryl lotion). Call if no improvement in the next week. Call for any fever, chills or other signs of systemic infection (mastitis) Not available 07/19/2020 12:44:40 I discussed Nay's examination. There is no evidence of mastitis. The etiology of her pruritus is not clear, as it is limited to the breast and no other part of her body. The erythema of the upper portion of the left breast is in part due to scratching, as there is dermographism. Discussed topical treatment including Caladryl lotion or topical hydrocortisone, which ever works better. Indications to call or return were discussed. I have asked the patient to call with an update regarding her status in the next week or so. Further measures to be determined, but this appears to be a self-limiting condition that should respond to local therapy. All the patient's questions were answered to her satisfaction, she expressed understanding and agreement with the plan of care Not available 07/19/2020 18:39:13 Reason for Referral None Reported. Procedures Surgical History Date Name Laterality Status Provider Name and Address Organization Details Recorded Time 05/21/20 19 Date of Last Pap Smear completed Bhumika Ballesteros (TERMED) M[facility] - [facility] SPEECH THERAPY ASSISTANT 07/19/2020 12:14:04 Insert intrauterine device completed Not Available [facility] 02/02/2020 01:04:06 Remove intrauterine device completed Not Available [facility] 02/02/2020 01:04:06 dilation and curettage completed Not Available [facility] 02/02/2020 01:04:06 Imaging Results None recorded. Procedure Notes None recorded. Medical Equipment None Reported. Allergies Allergen ID Allergen Name Allergen Category Reaction Reaction Severity Criticality Documentation Date Start Date Code Code System Note Provider Name and Address Organization Details Recorded Time 035689 Substance with sulfonami de structure and antibacte rial mechanism of action (substanc e) medicatio n Not available Not available Not available 01/30/2020 87466 8003 SNOMED *Onse t: As Adult *Note : 10/20 - Tenisha ss, Swell ing Not Available [facility] 0 16:57:44 564718 Compazine medicatio n Not available Not available Not available 01/30/2020 17666 6 RxNorm *Onse t: As Adult *Note : 10/20 - Desto paresh Not Available [facility] 0 16:57:44 022654 prednison e medicatio n Not available Not available Not available 01/30/2020 8640 RxNorm *Onse t: As Adult *Note : 10/20 - Redne ss Not Available [facility] 0 16:57:44 Medications Name Sig Start Date Stop Date Status Note LastModified by Organization Details LastModified Time accu-chek kit guide 07/19 completed Not Available Not Available Not Available cyclobenzap rine 10 mg tablet TK 1/2 TO 1 T PO TID PRF MUSCLE SPASM 07/19 completed Not Available Not Available Not Available butalbital- acetaminoph en-caffeine 50 mg-325 mg-40 mg capsule active Not Available Not Available Not Available glyburide 5 mg tablet 07/19 completed Not Available Not Available Not Available dextroamphe tamine-amph etamine 10 mg tablet TAKE ONE TABLET BY MOUTH EVERY DAY IN THE AFTERNOON NEEDED 07/19 completed Not Available Not Available Not Available butalbital 50 mg-acetamin ophen 325 mg tablet TAKE TWO TABLETS BY MOUTH EVERY 4 HOURS NEEDED, MAX 6 TABLETS PER 24 HOURS 2022 active Not Available Not Available Not Avai lable pantoprazol e 20 mg tablet,meri yed release TAKE ONE TABLET BY MOUTH EVERY DAY 07/19 completed Not Available Not Available Not Available Imitrex 50 mg tablet active Not Available Not Available No t Available oseltamivir 75 mg capsule 07/19 completed Not Available Not Available Not Available dextroamphe tamine-amph etamine 20 mg tablet TAKE TWO TABLETS BY MOUTH EVERY MORNING, EARLIEST FILL 07/03/2007/19 completed Not Available Not Available Not Available ondansetron 4 mg disintegrat ing tablet active Not Available Not Available N ot Available oxycodone 5 mg tablet 07/19 completed Not Available Not Available Not Available desvenlafax ine succinate ER 50 mg tablet,exte nded release 24 hr TAKE ONE TABLET BY MOUTH EVERY DAY WITH 25MG FOR 75MG DAILY active Not Available Not Available No t Available desvenlafax ine succinate ER 25 mg tablet,exte nded release 24 hr TAKE ONE TABLET BY MOUTH EVERY DAY WITH 50MG FOR 75MG DAILY active Not Available Not Available No t Available Accu-Chek Guide test strips USE TO TEST 6-10 TIMES DAILY DIRECTED 07/19 completed Not Available Not Available Not Available Accu-Chek Guide Glucose Meter USE TO TEST FOUR TIMES A DAY 07/19 completed Not Available Not Available Not Available Accu-Chek Guide L1-L2 Control Solution USE WITH GLUCOMETE R 07/19 completed Not Available Not Available Not Available Accu-Chek Fastclix Lancet Drum USE TO TEST FOUR TIMES A DAY DIRECTED 07/19 completed Not Available Not Available Not Available Vitals Date Recorded Body height Body temperature Systolic blood pressure Diastolic blood pressure Provider Name and Address Organization Details Last Updated DateTime 07/19/2020 160.02 cm 97.3 [degF] 110 mm[Hg] 74 mm[Hg] Bhumika Ballesteros (TERMED) MICKI Escobedo SPEECH THERAPY ASSISTANT 12:18:32 Social History Question Answer Notes LastModified by [employer] Details LastModified Time Tobacco Smoking Status Never Smoker Tobacco *Status: Never *Note: 10/21/2019 - 11 Not Available [employer] 02/02/2020 13:19:06 What Is Your Level Of Alcohol Consumption? None Alcohol *Status: Never Information not available 02/02/2020 What Is Your Level Of Caffeine Consumption? Occasional Caffeine *Status: Current Some Day *Qty: Rare Pop Information not available 02/02/2020 Sex: Unknown Functional Status Question Answer Note LastModified by [email or web address] Details LastModified Time What is your exercise level? Occasional Active but no formal exercise Information not available 02/02/2020 Mental Status None recorded. Family History Relationship Description Onset Age of this Age Resolved Age Notes LastModified by Organization Details LastModified Time Father Old myocardial infarction 59 Heart Attack : surviv ed, double bypass Not available 02/02/2020 01:08:30 Maternal Grandfather Family history of Cardiovascul ar disease Heart diseas e Not available 02/02/2020 01:08:30 Medical History Condition Response Psych- Anxiety Disorder Y Psych- Depression Y Neurology- Headaches/Migraines Y Pulmonary- Asthma Y Gynecological History Statement/Question Response Date of Last Pap Smear 05/21/2019 Obstetrics History GPAL:G 4 P 4 0 0 4 Type Value Multiple Births 0 Full Term 4 Induced 0 Spontaneous 0 Premature 0 Living 4 Ectopics 0 Total 4 Past Encounters Encounter ID Performer Location Encounter Start Date Encounter Closed Date Diagnosis/Indication Diagnosis SNOMED-CT Code Diagnosis ICD10 Code Diagnosis Note [id number] BRITTANY JANE MD [id number] [facility] [address] [facility] [place] [id number] 07/19/2020 12:02:42 07/19/2020 13:19:57 Pruritic disorder 985411662 L29.9 breasts Health Concerns Section Related Observation LastModified by Organization Detai ls LastModified Time None Recorded Concern Status LastModified by Organization Details LastModified Time None Recorded Advance Directives Directive None Recorded Payers Insurance Date Sequence Insurance Name Policy Number Policy Ozuna Covered Member ID Ozuna Member ID Guarantor Name 07/02/2022 1 [place] [id number] Dannie Holly Sukhwinder [id number] Lakeshia Pretty Notes Date Note Type Note Provider Name and Address Organization Details Recorded Time 07/19/2020 text/html Lakeshia presents t o our office today after contacting us with concerns regarding significant pruritus of both breasts. This is been going on for quite some time, but she get became concerned after speaking with friends regarding mastitis or inflammatory breast cancer. She continues to nurse her 7-month-old son, albeit less as she has restarted her Adderall medication. After medication, she typically pumps and discard the milk. Over the last couple of weeks she has developed significant itching of both breasts with inflammation and swelling of the glands. She has tried hydrocortisone cream with some relief. She denies fever, chills, muscle or joint aches or other systemic symptoms of infection. There has been no bleeding [place] [address] [facility],[address], [place], [address], [place] - [employer] SPEECH THERAPY ASSISTANT 07/19/2020 18:39:46 OBGyn Episode No OBEpisode recorded.
--- OUTSIDE RECORDS SUMMARY | 2024-10-31 10:58 | XMS_ITS | Encounter Summary ---
Author Organization [place] Address [address] [place] [address] Care Team Providers Care Mortgage Processing Clerk Name Role Phone Bianka Bourgeois PA-C Unavailable [phone] Ramon Reza PA-C Primary Care Provider [phone] Amarilys Hernandez LGSW Unavailable Unavailable Ramon Reza PA-C Unavailable [phone] Chelsea Alcantar RN Unavailable [phone] Ramon Reza PA-C Unavailable [phone] [facility]- Primary Care Provider No Ref-Primary, Physician Primary Care Provider [facility] Primary Care Provider Reason for Referral * Consultation - Closed Specialty Diagnoses / Procedures Referred By Mika langston Referred To Contact Diagnoses Persistent insomnia Ramon Reza PA-C Phone: tel: fax: [address] [address] Phone: tel: Referral ID Status Reason Start Date Expiration Date Visits Re quested Visits Authorized [id number] Closed 10/01/2017 10/01/2018 1 1 [place] [facility] [phone] (Age 18 and up) Referral Urgency: Routine Reason for Referral: Insomnia Desired Diagnostics: Per Sleep specialist Comments Please be aware that coverage of these services is subject to the terms and limitations of your health insurance plan. Call member services at your health plan with any benefit or coverage questions. Please bring the following to your appointment: >> List of current medications >> This referral request >> Any documents/labs given to you for this referral Reason for Visit * Reason Onset Date Comments MyChart Communication 09/16/2017 Recurrent Insomnia, Encounter Details Date Type Department Care Team (Late st Contact Info) Description 09/16/2017 MyC Medical Advice [address], [address] [place] [address] Ramon Reza PA-C [address] [place] [address] MyChart Communication (Recurrent Insomnia, ) Social History Tobacco Use Types Packs/Day Years Used Date Smoking Tobacco: Former Cigarettes Q uit: 05/28/2017 Smokeless Tobacco: Never Alcohol Use Standard Drinks/Week Comments No 0 (1 standard drink = 0.6 oz pur e alcohol) Comments No Sex and Gender Information Value Date Recorded Sex Assigned at Not on file Legal 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 Gender Identity Not on file Sexual Orientation Not on file documented as of this encounter Plan of Treatment Scheduled Referrals Name Type Priority Associated Diagnoses Orde r Schedule SLEEP EVALUATION & MANAGEMENT REFERRAL - [facility] [phone] (Age 18 and up) Referral Routine Persistent insomnia 1 Occurrences starting 10/01/2017 until 10/01/2018 documented as of this encounter Visit Diagnoses Diagnosis Persistent insomnia- Primary Persistent disorder of initiating or maintaining sleep documented in this encounter Additional Health Concerns Assessment Noted Time PHQ-9 Depression Total Score: 18 018 4:08 PM GAS GOLF CART REPAIRER documented as of this encounter Care Teams Mortgage Processing Clerk Relationship Specialty Start Date End Date Ramon Reza PA-C PCP - General Physician Electorate Officer - Medical 04/28/14 09/23/18 Ramon Reza PA-C [address] [place] [address] PCP - Assigned PCP 05/03/14 08/27/18 [facility]- [address] [place] [address] PCP - General 09/24/18 10/23/18 No Ref-Primary, Physician PCP - General 10/24/18 09/25/[address] [id number] PCP - General Internal Medicine 09/26/19 Bianka Bourgeois PA-C Physician Electorate Officer 05/14/11 Amarilys Hernandez, [facility] Clinic Fashion Patternmaker 03/22/18 Chelsea Alcantar, RN Lead Fashion Patternmaker 07/03/18 9 Ramon Reza PA-C [address] [place] [address] Assigned PCP 05/03/14 08/06/21 documented as of this encounter
--- OUTSIDE RECORDS SUMMARY | 2024-10-31 10:58 | XMS_ITS | Encounter Summary ---
Author Organization [place] Address [address] [place] [address] Care Team Providers Care Stripper Shovel Operator Name Role Phone Bianka Bourgeois PA-C Unavailable [phone] Ramon Reza PA-C Primary Care Provider [phone] Amarilys Hernandez Unavailable Unavailable Ramon Reza PA-C Unavailable [phone] Chelsea Alcantar RN Unavailable [phone] Ramon Reza PA-C Unavailable [phone] [facility]- Primary Care Provider No Ref-Primary, Physician Primary Care Provider [facility] Primary Care Provider Reason for Visit * Reason Onset Date Comments Pt. Information/instruction 03/15/2018 test results Encounter Details Date Type Department Care Team (Late st Contact Info) Description 03/15/2018 MyC Medical Advice [facility] [address] [facility], [address] [place] [address] Ramon Reza PA-C [address] [place] [address] Pt. 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 Gender Identity Not on file Sexual Orientation Not on file documented as of this encounter Plan of Treatment Not on file documented as of this encounter Visit Diagnoses Not on filedocumented in this encounter Additional Health Concerns Assessment Noted Time PHQ-9 Depression Total Score: 7 02/17/20 18 7:19 AM CDT documented as of this encounter Care Teams Stripper Shovel Operator Relationship Specialty Start Date End Date Ramon Reza PA-C PCP - General Physician Bonbon Dipper - Medical 04/28/14 09/23/18 Ramon Reza PA-C [address] [place] [address] PCP - Assigned PCP 05/03/14 08/27/18 [facility]- [address] [place] [address] PCP - General 09/24/18 10/23/18 No Ref-Primary, Physician PCP - General 10/24/18 09/25/[address] [address] PCP - General Internal Medicine 09/26/19 Bianka Bourgeois PA-C Physician Bonbon Dipper 05/14/11 Amarilys Hernandez, [facility] Clinic Panel Gluer 03/22/18 Chelsea Alcantar, RN Lead Panel Gluer 07/03/18 9 Ramon Reza PA-C [address] [place] [address] Assigned PCP 05/03/14 08/06/21 documented as of this encounter
--- OUTSIDE RECORDS SUMMARY | 2024-10-31 10:58 | XMS_ITS | Encounter Summary ---
Author Organization [place] Address [address] [place] [address]. [place] [address] Care Team Providers Care Postpartum Rn Name Role Phone Bianka Bourgeois PA-C Unavailable [phone] Ramon Reza PA-C Primary Care Provider [phone] Amarilys Hernandez Unavailable Unavailable Ramon Reza PA-C Unavailable [phone] Chelsea Alcantar RN Unavailable [phone] Ramon Reza PA-C Unavailable [phone] [facility]- Primary Care Provider No Ref-Primary, Physician Primary Care Provider Clinic - [facility] Primary Care Provider Reason for Visit * Reason Onset Date Comments MyChart Communication 01/31/2018 Adderall R efills Encounter Details Date Type Department Care Team (Late st Contact Info) Description 01/31/2018 MyC Medical Advice [facility] [address] [facility], [address] [place] [address] Ramon Reza PA-C [address] [place] [address] MyChart Communication (Adderall Refills) Social History Tobacco Use Types Packs/Day Years Used Date Smoking Tobacco: Former Cigarettes Q uit: 05/28/2017 Smokeless Tobacco: Never Alcohol Use Standard Drinks/Week Comments No 0 (1 standard drink = 0.6 oz pur e alcohol) Comments No Sex and Gender Information Value Date Recorded Sex Assigned at Not on file Legal 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 POUND ATTENDANT Gender Identity Not on file Sexual Orientation Not on file documented as of this encounter Plan of Treatment Not on file documented as of this encounter Visit Diagnoses Not on filedocumented in this encounter Additional Health Concerns Assessment Noted Time PHQ-9 Depression Total Score: 18 018 4:08 PM POUND ATTENDANT documented as of this encounter Care Teams Postpartum Rn Relationship Specialty Start Date End Date Ramon Reza PA-C PCP - General Physician Daycare Assistant - Medical 04/28/14 09/23/18 Ramon Reza PA-C [address] [place] [address] PCP - Assigned PCP 05/03/14 08/27/18 [facility]- [address] [place] [address] PCP - General 09/24/18 10/23/18 No Ref-Primary, Physician PCP - General 10/24/18 09/25/[address] [id number] PCP - General Internal Medicine 09/26/19 Bianka Bourgeois PA-C Physician Daycare Assistant 05/14/11 Amarilys Hernandez, [facility] Clinic Highway Construction Inspector 03/22/18 Chelsea Alcantar, RN Lead Highway Construction Inspector 07/03/18 9 Ramon Reza PA-C [address] [place] [address] Assigned PCP 05/03/14 08/06/21 documented as of this encounter
--- OUTSIDE RECORDS SUMMARY | 2024-10-31 10:58 | XMS_ITS | Encounter Summary ---
Author Organization [place] Address [address] [place] [address] Care Team Providers Care Licensed Reactor Operator Name Role Phone Bianka Bourgeois PA-C Unavailable [phone] Ramon Reza PA-C Primary Care Provider [phone] Amarilys Hernandez LGSW Unavailable Unavailable Ramon Reza PA-C Unavailable [phone] Chelsea Alcantar RN Unavailable [phone] Ramon Reza PA-C Unavailable [phone] [facility]- Primary Care Provider No Ref-Primary, Physician Primary Care Provider Clinic - [facility] Primary Care Provider Encounter Details Date Type Department Care Team (Late st Contact Info) Description 08/08/2017 MyC Medical Advice [facility] [address] [facility], [address] [place] [address] Lizette Lobo, RN Social History Tobacco Use Types Packs/Day Years Used Date Smoking Tobacco: Former Cigarettes Q uit: 05/28/2017 Smokeless Tobacco: Never Alcohol Use Standard Drinks/Week Comments No 0 (1 standard drink = 0.6 oz pur e alcohol) Comments No Sex and Gender Information Value Date Recorded Sex Assigned at Not on file Legal 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 GEM EXPERT Gender Identity Not on file Sexual Orientation Not on file documented as of this encounter Plan of Treatment Not on file documented as of this encounter Visit Diagnoses Not on filedocumented in this encounter Additional Health Concerns Assessment Noted Time PHQ-9 Depression Total Score: 18 018 4:08 PM GEM EXPERT documented as of this encounter Care Teams Licensed Reactor Operator Relationship Specialty Start Date End Date Ramon Reza PA-C PCP - General Physician J2Ee Software Engineer - Medical 04/28/14 09/23/18 Ramon Reza PA-C [address] [place] [address] PCP - Assigned PCP 05/03/14 08/27/18 [facility]- [address], [place] [address] PCP - General 09/24/18 10/23/18 No Ref-Primary, Physician PCP - General 10/24/18 09/25/[address] [id number] PCP - General Internal Medicine 09/26/19 Bianka Bourgeois PA-C Physician J2Ee Software Engineer 05/14/11 Amarilys Hernandez, [facility] Clinic Sand Sifter 03/22/18 Chelsea Alcantar, RN Lead Sand Sifter 07/03/18 9 Ramon Reza PA-C [address] [place] [address] Assigned PCP 05/03/14 08/06/21 documented as of this encounter
--- OUTSIDE RECORDS SUMMARY | 2024-10-31 10:58 | XMS_ITS | Encounter Summary ---
Author Organization [place] Address [address] [place] [address] Care Team Providers Care A&P Mechanic Name Role Phone Bianka Bourgeois PA-C Unavailable [phone] Ramon Reza PA-C Primary Care Provider [phone] Amarilys Hernandez LGSW Unavailable Unavailable Ramon Reza PA-C Unavailable [phone] Chelsea Alcantar RN Unavailable [phone] Ramon Reza PA-C Unavailable [phone] [facility]- Primary Care Provider No Ref-Primary, Physician Primary Care Provider Clinic - [facility] Primary Care Provider Encounter Details Date Type Department Care Team (Late st Contact Info) Description 10/31/2017 MyC Medical Advice [facility] [address] [facility], [address] [place] [address] Nely Sigala MA Social History Tobacco Use Types Packs/Day Years Used Date Smoking Tobacco: Former Cigarettes Q uit: 05/28/2017 Smokeless Tobacco: Never Alcohol Use Standard Drinks/Week Comments No 0 (1 standard drink = 0.6 oz pur e alcohol) Comments No Sex and Gender Information Value Date Recorded Sex Assigned at Not on file Legal 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 AUTOMATIC GRINDER 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 Gender Identity Not on file Sexual Orientation Not on file documented as of this encounter Plan of Treatment Not on file documented as of this encounter Visit Diagnoses Not on filedocumented in this encounter Additional Health Concerns Assessment Noted Time PHQ-9 Depression Total Score: 18 018 4:08 PM AUTOMATIC GRINDER OPERATOR documented as of this encounter Care Teams A&P Mechanic Relationship Specialty Start Date End Date Ramon Reza PA-C PCP - General Physician Resident Program Specialist - Medical 04/28/14 09/23/18 Ramon Reza PA-[place] [address] [place] [address] PCP - Assigned PCP 05/03/14 08/27/18 [facility]- [address], [place] [address] PCP - General 09/24/18 10/23/18 No Ref-Primary, Physician PCP - General 10/24/18 09/25/[address] [id number] PCP - General Internal Medicine 09/26/19 Bianka Bourgeois PA-C Physician Resident Program Specialist 05/14/11 Amarilys Hernandez, [facility] Clinic Geothermal System Installer 03/22/18 Chelsea Alcantar, RN Lead Geothermal System Installer 07/03/18 9 aRmon Reza PA-[place] [address] [place] [address] Assigned PCP 05/03/14 08/06/21 documented as of this encounter
--- OUTSIDE RECORDS SUMMARY | 2024-10-31 10:58 | XMS_ITS | Encounter Summary ---
Author Organization [place] Address [address] [place] [address] Care Team Providers Care Java Android Developer Name Role Phone Bianka Bourgeois PA-C Unavailable [phone] Ramon Reza PA-C Primary Care Provider [phone] Amarilys Hernandez Unavailable Unavailable Ramon Reza PA-C Unavailable [phone] Chelsea Alcantar RN Unavailable [phone] Ramon Reza PA-C Unavailable [phone] [facility]- Primary Care Provider No Ref-Primary, Physician Primary Care Provider [facility] Primary Care Provider Reason for Visit * Reason Onset Date Comments Results 02/22/2018 HPV Encounter Details Date Type Department Care Team (Late st Contact Info) Description 02/22/2018 MyC Medical Advice [facility] [address] [facility], [address] [place] [address] [place] [address] [place] [address] Results (HPV) Social History Tobacco Use Types Packs/Day Years Used Date Smoking Tobacco: Former Cigarettes Q uit: 05/28/2017 Smokeless Tobacco: Never Alcohol Use Standard Drinks/Week Comments No 0 (1 standard drink = 0.6 oz pur e alcohol) PHQ-2 Answer Date Recorded PHQ-2 Score 2 02/15/2018 Comments No Sex and Gender Information Value Date Recorded Sex Assigned at Not on file Legal 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 PLATFORM ATTENDANT Gender Identity Not on file Sexual Orientation Not on file documented as of this encounter Plan of Treatment Not on file documented as of this encounter Visit Diagnoses Not on filedocumented in this encounter Additional Health Concerns Assessment Noted Time PHQ-9 Depression Total Score: 7 02/17/20 18 7:19 AM CDT documented as of this encounter Care Teams Java Android Developer Relationship Specialty Start Date End Date Ramon Reza PA-C PCP - General Physician Accessories Repairer - Medical 04/28/14 09/23/18 Ramon Reza PA-C [address] [place] [address] PCP - Assigned PCP 05/03/14 08/27/18 [facility]- [address] [place] [address] PCP - General 09/24/18 10/23/18 No Ref-Primary, Physician PCP - General 10/24/18 09/25/19 [facility] - [address] [address] PCP - General Internal Medicine 09/26/19 Bianka Bourgeois PA-C Physician Accessories Repairer 05/14/11 Amarilys Hernandez, [facility] Clinic Welder Gas Tungsten Arc 03/22/18 Chelsea Alcantar RN Lead Welder Gas Tungsten Arc 07/03/18 9 Ramon Reza PA-C [address] [place] [address] Assigned PCP 05/03/14 08/06/21 documented as of this encounter
--- OUTSIDE RECORDS SUMMARY | 2024-10-31 10:58 | XMS_ITS | Encounter Summary ---
Author Organization [place] Address [address] [place] [address] Care Team Providers Care Senior Data Warehouse Architect Name Role Phone Bianka Bourgeois PA-C Unavailable [phone] Ramon Reza PA-C Primary Care Provider [phone] Amarilys Hernandez LGSW Unavailable Unavailable Ramon Reza PA-C Unavailable [phone] Chelsea Alcantar RN Unavailable [phone] Ramon Reza PA-C Unavailable [phone] [facility]- Primary Care Provider No Ref-Primary, Physician Primary Care Provider Clinic - [facility] Primary Care Provider Encounter Details Date Type Department Care Team (Late st Contact Info) Description 02/21/2018 MyC Medical Advice [facility] [address] [facility], [address] [place] [address] [place] [address] [place] [address] Social History Tobacco Use Types Packs/Day Years Used Date Smoking Tobacco: Former Cigarettes Q uit: 05/28/2017 Smokeless Tobacco: Never Alcohol Use Standard Drinks/Week Comments No 0 (1 standard drink = 0.6 oz pur e alcohol) PHQ-2 Answer Date Recorded PHQ-2 Score 2 02/15/2018 Comments No Sex and Gender Information Value Date Recorded Sex Assigned at Not on file Legal 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 Gender Identity Not on file Sexual Orientation Not on file documented as of this encounter Plan of Treatment Not on file documented as of this encounter Visit Diagnoses Not on filedocumented in this encounter Additional Health Concerns Assessment Noted Time PHQ-9 Depression Total Score: 7 02/17/20 18 7:19 AM CDT documented as of this encounter Care Teams Senior Data Warehouse Architect Relationship Specialty Start Date End Date Ramon Reza PA-C PCP - General Physician Ethylbenzene Converter Operator - Medical 04/28/14 09/23/18 Ramon Reza PA-C [address] [place] [address] PCP - Assigned PCP 05/03/14 08/27/18 [facility]- [address], [place] [address] PCP - General 09/24/18 10/23/18 No Ref-Primary, Physician PCP - General 10/24/18 09/25/[address] [address] PCP - General Internal Medicine 09/26/19 Bianka Bourgeois PA-C Physician Ethylbenzene Converter Operator 05/14/11 Amarilys Hernandez, [facility] Clinic Box Shook Patcher 03/22/18 Chelsea Alcantar, RN Lead Box Shook Patcher 07/03/18 9 Ramon Reza PA-C [address] [address] Assigned PCP 05/03/14 08/06/21 documented as of this encounter
--- OUTSIDE RECORDS SUMMARY | 2024-10-31 10:58 | XMS_ITS | Encounter Summary ---
Author Organization [place] Address [address] [place] [address]. [place] [address] Care Team Providers Care Stile Ripsaw Operator Name Role Phone Bianka Bourgeois PA-C Unavailable [phone] Ramon Reza PA-C Primary Care Provider [phone] Amarilys Hernandez LGSW Unavailable Unavailable Ramon Reza PA-C Unavailable [phone] Chelsea Alcantar RN Unavailable [phone] Ramon Reza PA-C Unavailable [phone] [facility]- Primary Care Provider No Ref-Primary, Physician Primary Care Provider Clinic - [facility] Primary Care Provider Reason for Visit * Reason Onset Date Comments Medication Refill 10/25/2017 L-Methylfolate (DEPLIN) 15 MG TABS Encounter Details Date Type Department Care Team (Late st Contact Info) Description 10/24/2017 Refill [place] [id number] [facility], [address] [place] [address] Ramon Reza PA-C [address] [place] [address] Medication Refill ( L-Methylfolate (DEPLIN) 15 MG TABS) Social History Tobacco Use Types Packs/Day Years Used Date Smoking Tobacco: Former Cigarettes Q uit: 05/28/2017 Smokeless Tobacco: Never Alcohol Use Standard Drinks/Week Comments No 0 (1 standard drink = 0.6 oz pur e alcohol) Comments No Sex and Gender Information Value Date Recorded Sex Assigned at Not on file Legal 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 Hopefully this will work. Yoselin Ivory RN * Telephone Encounter - Ramon Reza PA-C - 10/25/2017 2:20 PM CDT I think she has had this before but when I try to click in the box it tells me it cannot be ordered as a prescription. Ideas? * Telephone Encounter - Yoselin Ivory RN - 10/25/2017 1:59 PM CDT Routing refill request to provider for review/approval because: Drug not on the [facility] refill protocol. Yoselin Ivory RN * Telephone Encounter - Adrianna Patel - 10/25/2017 10:55 AM CDT Requested Prescriptions Pending Prescriptions Disp Refills ??? L-Methylfolate (DEPLIN) 15 MG TABS [Pharmacy Med Name: DEPLIN 15 MG TABLET] 90 tablet 3 Sig: TAKE 1/2 TABLET BY MOUTH DAILY There is no refill protocol information for this order Last Written Prescription Date: 10/01/16 Last Fill Quantity: 90, # refills: 3 Last Office Visit: 09/04/2017 Future Office Visit: PHQ-9 SCORE 10/11/2016 05/14/2017 07/03/2017 Total Score - - - Total Score 13 20 18 CHANDLER-7 SCORE 04/04/2016 05/14/2017 07/03/2017 Total Score - - - Total Score 5 21 19 documented in this encounter Plan of Treatment Not on file documented as of this encounter Visit Diagnoses Diagnosis Major depressive disorder, single episode, mild documented in this encounter Additional Health Concerns Assessment Noted Time PHQ-9 Depression Total Score: 18 018 4:08 PM CHURCH SECRETARY documented as of this encounter Care Teams Stile Ripsaw Operator Relationship Specialty Start Date End Date Ramon Reza PA-C PCP - General Physician Funeral Home Director - Medical 04/28/14 09/23/18 Ramon Reza PA-C [address] [address] PCP - Assigned PCP 05/03/14 08/27/18 [facility]- [address] [address] PCP - General 09/24/18 10/23/18 No Ref-Primary, Physician PCP - General 10/24/18 09/25/[address] [address] PCP - General Internal Medicine 09/26/19 Bianka Bourgeois PA-C Physician Funeral Home Director 05/14/11 Amarilys Hernandez, [facility] Supervisor Filtration 03/22/18 Chelsea Alcantar, RN Lead Supervisor Filtration 07/03/18 9 Ramon Reza PA-C [address] [address] Assigned PCP 05/03/14 08/06/21 documented as of this encounter
--- OUTSIDE RECORDS SUMMARY | 2024-10-31 10:58 | XMS_ITS | Encounter Summary ---
Author Organization [place] Address [address] [place] [address] Care Team Providers Care Program Manufacturing Leader Name Role Phone Bianka Bourgeois PA-C Unavailable [phone] Ramon Reza PA-C Primary Care Provider [phone] Amarilys Hernandez Unavailable Unavailable Ramon Reza PA-C Unavailable [phone] Chelsea Alcantar RN Unavailable [phone] Ramon Reza PA-C Unavailable [phone] [facility]- Primary Care Provider No Ref-Primary, Physician Primary Care Provider Clinic - [facility] Primary Care Provider Reason for Visit * Reason Onset Date Comments Results 02/15/2018 Encounter Details Date Type Department Care Team (Late st Contact Info) Description 02/15/2018 MyC Medical Advice [facility], [address] [place] [address] [place] [address] [place] [address] Results Social History Tobacco Use Types Packs/Day Years Used Date Smoking Tobacco: Former Cigarettes Q uit: 05/28/2017 Smokeless Tobacco: Never Alcohol Use Standard Drinks/Week Comments No 0 (1 standard drink = 0.6 oz pur e alcohol) PHQ-2 Answer Date Recorded PHQ-2 Score 2 02/15/2018 Comments No Sex and Gender Information Value Date Recorded Sex Assigned at Not on file Legal 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 See [email or web address] message below. Please advise. Aissatou Hernandez RN ?? Lakeshia Geiger ??Nell Gonzalez MD 13 hours ago (7:02 PM) ? sorry- this was the test I was referring to. I have a question about WET PREP resulted on 02/15/18 at 10:24 AM. documented in this encounter Plan of Treatment Not on file documented as of this encounter Visit Diagnoses Diagnosis Yeast infection of the vagina- Primary Candidiasis of vulva and vagina documented in this encounter Additional Health Concerns Assessment Noted Time PHQ-9 Depression Total Score: 7 02/17/20 18 7:19 AM CDT documented as of this encounter Care Teams Program Manufacturing Leader Relationship Specialty Start Date End Date Ramon Reza PA-C PCP - General Physician Poultry Inseminator - Medical 04/28/14 09/23/18 Ramon Reza PA-C [address] [place] [address] PCP - Assigned PCP 05/03/14 08/27/18 [facility]- [address] [place] [address] PCP - General 09/24/18 10/23/18 No Ref-Primary, Physician PCP - General 10/24/18 09/25/19 Clinic - [address] [address] PCP - General Internal Medicine 09/26/19 Bianka Bourgeois PA-C Physician Poultry Inseminator 05/14/11 Amarilys Henrandez, [facility] Clinic New Car Get Ready Mechanic 03/22/18 Chelsea Alcantar, RN Lead New Car Get Ready Mechanic 07/03/18 9 Ramon Reza PA-C [address] [facility] [place] [address] Assigned PCP 05/03/14 08/06/21 documented as of this encounter
--- OUTSIDE RECORDS SUMMARY | 2024-10-31 10:58 | XMS_ITS | Clinical Summary ---
Author Organization [facility] Address [address] [place] [address] Care Team Providers Care Sensitometrist Name Role Phone Bianka Bourgeois PA-C Unavailable [phone] [facility] Primary Care Provider Allergies Active Allergy Reactions Criticality Noted Date Comments Prochlorperazine Visual Disturbance 05/14/2011 Makes her skin crawl Metoclopramide Hcl Anxiety Low 05/29/2007 Prednisone Swelling 05/14/2011 Sulfa Antibiotics Swelling 05/14/2011 Medications albuterol (PROAIR HFA/PROVENTIL HFA/VENTOLIN HFA) 108 (90 Base) MCG/ACT inhaler Inhale 2 puffs into the lungs every 6 hours as needed for shortness of breath / dyspnea or wheezing 18 g 9 Active Multiple Vitamins-Minera ls (MULTIVITAMIN WOMEN) TABS Take 1 tablet by mouth daily Dose unknown. Brand is Ritual. Active acetaminophen (TYLENOL) 500 MG tabletIndicatio ns:Normal delivery Take 2 tablets (1,000 mg) by mouth every 6 hours as needed for mild pain or fever (greater than or equal to 38 C /100.4 F (oral) or 38.5 C/ 101.4 F (core).) 0 Active ibuprofen (ADVIL/MOTRIN) 200 MG tabletIndicatio ns:Normal delivery Take 3 tablets (600 mg) by mouth every 6 hours as needed for other (cramping) 0 Active oxyCODONE (ROXICODONE) 5 MG tabletIndicatio ns:Normal delivery Take 1 tablet (5 mg) by mouth every 6 hours as needed for moderate to severe pain 6 tablet 0 Active metoprolol tartrate (LOPRESSOR) 25 MG tablet Take 0.5 tablets (12.5 mg) by mouth 2 times daily 30 tablet 1 Active Active Problems Problem Noted Date Diagnosed Date Insulin controlled gestation al diabetes mellitus (GDM) during , antepartum 11/27/2019 Normal delivery 11/26/2019 Labor and delivery, indication for care 11/25/19 20 Indication for care in labor or delivery 020 Encounter for triage in patient 020 Abdominal pain 01/01/2019 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 Plan 1 yr co-test 03/28/19 Patient is lost to pap tracking follow-up. 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 Provider to review Tension headache 04/09/2014 ADHD (attention deficit hyperactivity disorder) 04/09/2014 Overview (06/10/2018): Patient is followed by CAMACH[facility] MYERS for ongoing prescription of stimulants. All refills should be approved by this provider, or covering partner. Medication(s): amphetamine-dextroamphetamine. Maximum quantity per month: 60 Clinic visit frequency required: Q 6 months Controlled substance agreement on file: Yes Date(s): 02.15.18 Neuropsych evaluation for ADD completed: No Last [facility] website verification: 06.10.18 [email or web address] Lower urinary tract infectious disease 3 Overview (04/26/2015): Diagnosis updated by automated process. Provider to review and confirm. Resolved Problems Problem Noted Date Diagnosed Date Resolved Date SROM (spontaneous rupture of membranes) 01/04/2012 12/04/2017 Immunizations Immunization Administration Dates Next Due TDAP Vaccine (Adacel) 11/27/2019() Family History Medical History Relation Comments No Known Problems Father No Known Problems Mother Relation Status Comments Father Alive Mother Alive Social History Tobacco Use Types Packs/Day Years Used Date Smoking Tobacco: Former Cigarettes Q uit: 05/28/2017 Smokeless Tobacco: Never Alcohol Use Standard Drinks/Week Comments No 0 (1 standard drink = 0.6 oz pur e alcohol) PHQ-2 Answer Date Recorded PHQ-2 Score 2 02/15/2018 [place] Depression Scale Answer Date Recorded [place] Depression Score 1 11/27/2019 Last EPDS Self Harm Result Not on file 11/26 Adolescent Education Answer Date Record ed Getting School Help Needed Not on file 03/25 Comments No Sex and Gender Information Value Date Recorded Sex Assigned at Not on file Legal 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 Gender Identity Not on file Sexual Orientation Not on file Last Filed Vital Signs Vital Sign Reading Time Taken Comments Blood Pressure 161/112 03/11/2024 6:30 AM CDT Pulse 74 03/11/2024 6:30 AM CDT Temperature 36.6 C (97.9 F) 03/11/2024 3:36 AM CDT Respiratory Rate 18 03/11/2024 3:36 AM CDT Oxygen Saturation 99% 03/11/2024 6:30 AM CDT Inhaled Oxygen Concentration - - Weight 62.1 kg (137 lb) 03/11/2024 3:33 AM CDT Height 160 cm (5' 3) 01/25/2021 2:49 PM CDT Body Mass Index 24.27 01/25/2021 2:49 PM CDT Plan of Treatment Health Maintenance Due Date Last Done Comments ADVANCE CARE PLANNING 1983 ANNUAL REVIEW OF HM ORDERS 1983 MAMMO SCREENING 1983 HEPATITIS C SCREENING 10/28/2001 HEPATITIS B IMMUNIZATION (1 of 3 - 19+ 3-dose series) 10/28/2002 DTAP/TDAP/TD IMMUNIZATION (1 - Tdap) 10/28/2008 YEARLY PREVENTIVE VISIT 08/17/2016 08/17/2015 PHQ-9 08/18/2018 02/15/2018, 01/0 02/2018, 05/14/2017, Additional history exists HPV TEST 05/21/2020 05/21/2019, 04/26, 02/15/2018 PAP 05/21/2020 05/21/2019, 04/26, 02/15/2018, Additional history exists LIPID 2023 COVID-19 Vaccine ( season) 2024 INFLUENZA VACCINE (Season Ended) 2025 08/05/2018 (Declined) DIABETES SCREENING 03/11/2027 03/11/2024, 0 01/25/2021, 11/27/2019, Additional history exists ZOSTER IMMUNIZATION (1 of 2) 10/28/2033 MIGRAINE ACTION PLAN Completed 04/29/2014 DEPRESSION ACTION PLAN Completed 02/15/2018, 2016 HIV SCREENING Completed 05/21/2019, 04/26, 09/11/2011 HPV IMMUNIZATION Aged Out No longer e ligible based on patient's age to complete this topic MENINGITIS IMMUNIZATION Aged Out No l onger eligible based on patient's age to complete this topic Pneumococcal Vaccine: Pediatrics (0 to 5 Years) and At-Risk Patients (6 to 49 Years) Aged Out No longer eligible based on patient's age to complete this topic Procedures Procedure Name Priority Date/Time Associated Diagnosis Comments COMPREHENSIVE METABOLIC PANEL STAT 03/11/2024 3:39 AM CDT HIV ANTIGEN ANTIBODY COMBO Routine 05/21/2019 PAP IMAGED THIN LAYER SCREEN Routine 02/15/2018 9:58 AM CDT Screening for malignant neoplasm of cervix HPV HIGH RISK TYPES DNA CERVICAL Routine 02/15/2018 9:54 AM CDT Encounter for removal of intrauterine contraceptive device from Last 3 Months or Most Recently Relevant to Health Maintenance Results * (ABNORMAL) Comprehensive metabolic panel (03/11/2024 3:39 AM CDT) Sodium 135 135 - 145 mmol/L 03/11/2024 4:06 AM CDT [facility] Potassium 4.0 3.4 - 5.3 mmol/L 03/11/2024 4:06 AM CDT [facility] Carbon Dioxide (CO2) 25 22 - 29 mmol/L 03/11/2024 4:06 AM CDT [facility] Anion Gap 10 7 - 15 mmol/L 03/11/2024 4:06 AM CDT [facility] Urea Nitrogen 13.4 6.0 - 20.0 mg/dL 03/11/2024 4:06 AM CDT [facility] Creatinine 0.89 0.51 - 0.95 mg/dL 03/11/2024 4:06 AM CDT [facility] GFR Estimate 84 >60 mL/min/1.7 3m2 03/11/2024 4:06 AM CDT [facility] Comment:eGFR calculated usin 2020 CKD-EPI equation. Calcium 9.7 8.8 - 10.4 mg/dL 03/11/2024 4:06 AM CDT [facility] Comment:Reference intervals for this test were updated on 01/08/2024 to reflect our healthy population more accurately. There may be differences in the flagging of prior results with similar values performed with this method. Those prior results can be interpreted in the context of the updated reference intervals. Chloride 100 98 - 107 mmol/L 03/11/2024 4:06 AM CDT [facility] Glucose 106(H) 70 - 99 mg/dL 03/11/2024 4:06 AM CDT [facility] Alkaline Phosphatase 62 40 - 150 U/L 03/11/2024 4:06 AM CDT [facility] AST 20 0 - 45 U/L 03/11/2024 4:06 AM CDT [facility] ALT 14 0 - 50 U/L 03/11/2024 4:06 AM [facility]T [facility] Protein Total 7.6 6.4 - 8.3 g/dL 03/11/2024 4:06 AM CDT [facility] Albumin 4.8 3.5 - 5.2 g/dL 03/11/2024 4:06 AM CDT [facility] Bilirubin Total 0.8 <=1.2 mg/dL 03/11/2024 4:06 AM CDT [facility] Blood BLOOD SPECIMEN / Unknown Venipuncture / Unknown 03/11/2024 3:39 AM CDT 03/11/2024 3:48 AM CDT us Luis M Grimes MD LAB - BLOOD ORDERABLES Final Result [facility] [address] [facility] (1st floor, no room number) [place] [address], [facility] * HIV Antigen Antibody Combo (05/21/2019) HIV Antigen Antibody Combo negative Blood specimen (specimen) us Patient Reported LAB - BLOOD ORDERABLES Final Re sult * Pap imaged thin layer screen with HPV - recommended age 30 - 65 years (select HPV order below) (02/15/2018 9:58 AM CDT) PAP NIL COPATH Copath Report Patient Name: LAKESHIA GEIGER MR#: [id number] Specimen #: [id number] Collected: 02/15/2018 Received: 02/18/2018 Reported: 02/19/2018 10:04 Ordering Phy(s): MARILU GONZALEZ For improved result formatting, select 'View Enhanced Report Format' under Linked Documents section. SPECIMEN/STAIN PROCESS: Pap imaged thin layer prep screening (Surepath, FocalPoint with guided screening) Pap-Cyto x 1, HPV ordered x 1 SOURCE: Cervical, endocervical Pap imaged thin layer prep screening (Surepath, FocalPoint with guided screening) SPECIMEN ADEQUACY: Satisfactory for evaluation. -Transformation zone component present. CYTOLOGIC INTERPRETATION: Negative for intraepithelial lesion or malignancy Electronically signed out by: BRIDGET Diop (ASCP) Processed and screened at [facility], [facility] CLINICAL HISTORY: Currently not having periods, Intra-Uterine Device, A previous normal pap Date of Last Pap: 08/17/2015, Papanicolaou Test Limitations: Cervical cytology is a screening test with limited sensitivity; regular screening is critical for cancer prevention; Pap tests are primarily effective for the diagnosis/preventi on of squamous cell carcinoma, not adenocarcinomas or other cancers. TESTING LAB LOCATION: [facility] [place] [address] COLLECTION SITE: Client: [facility] Location: [facility] (R) [facility] Cytologic material (specimen) 02/15/2018 9:58 AM CDT 02/18/2018 8:49 AM CDT Marilu Gonzalez MD LAB - OPTIME CLINICAL Fabio FIELDS Final Result [facility] * (ABNORMAL) HPV High Risk Types DNA Cervical (02/15/2018 9:54 AM CDT) HPV Source SurePath 02/20/2018 9:[address] [facility] HPV 16 DNA Negative NEG^Nega tive 02/20/2018 2:[address] [facility] HPV 18 DNA Negative NEG^Nega tive 02/20/2018 2:[address] [facility] Other HR HPV Positive(A) NEG^Nega tive 02/20/2018 2:[address] [facility] Final Diagnosis This patient's sample is positive for other HR HPV DNA (types 31, 33, 35, 39, 45, 51, 52, 56, 58, 59, 66 or 68), not HPV 16 or HPV 18 DNA. This result requires clinical correlation with concurrent cytology findings. 02/20/2018 2:[address] [facility] Comment: This test was developed and its performance characteristics determined by the [facility]. It has not been cleared or approved by the FDA. The laboratory is regulated under CLIA as qualified to perform high-complexity testing. This test is used for clinical purposes. It should not be regarded as investigational or for research. (Note) METHODOLOGY: The Kellee alvin 4800 system uses automated extraction, simultaneous amplification of HPV (L1 region) and beta-globin, followed by real time detection of fluorescent labeled HPV and beta globin using specific oligonucleotide probes . The test specifically identifies types HPV 16 DNA and HPV 18 DNA while concurrently detecting the rest of the high risk types (31, 33, 35, 39, 45, 51, 52, 56, 58, 59, 66 or 68). COMMENTS: This test is not intended for use as a screening device for women under age 30 with normal cervical cytology. Results should be correlated with cytologic and histologic findings. Close clinical followup is recommended. Specimen Description Cervical Cells 02/20/2018 9:[address] [facility] Comment:[id number] 02/15/2018 9:54 AM CDT 02/15/2018 10:04 AM CDT us Marilu Gonzalez MD LAB - BLOOD ORDERABLES Final Result [facility] [address] [place] [address] from Last 3 Months or Most Recently Relevant to Health Maintenance Insurance [employer] [facility] OUT OF STATE [email or web address] [place] [facility] OUT OF STATE Advance Directives For more information, please contact: [phone] * Full Code (Latest Code Status on File) Date Activated Date Inactivated Comments 01/01/2019 1:55 PM 08/02/2019 9:17 PM Question Answer Comments Code status determined by: Discussion with patie nt/legal decision maker * Full Code Date Activated Date Inactivated Comments 01/01/2019 12:14 AM 01/01/2019 1:55 PM Question Answer Comments Code status determined by: Discussion with patie nt/legal decision maker * Full Code Date Activated Date Inactivated Comments 12/25/2012 5:28 PM 09/24/2018 9:35 AM * Full Code Date Activated Date Inactivated Comments 12/23/2012 6:01 AM 12/25/2012 5:28 PM Care Teams Sensitometrist Relationship Specialty Start Date End Date [facility] - [address] [address] PCP - General Internal Medicine 09/26/19 Bianka Bourgeois PA-C Physician Linux Devops Engineer 05/14/11
--- OUTSIDE RECORDS SUMMARY | 2024-10-31 10:58 | XMS_ITS | Data Portability ---
Author Organization [place] [facility] Address [address] [address] Care Team Providers Care Vamp Liner Name Role Phone AUSTIN GANNON Referring Provider [phone] Assessment Encounter Date Assessment Date Assessment LastModified by Organization Details LastModified Time 01/25/2021 01/25/2021 Today I spent a considerable amount of time discussing the patient's past medical and personal history, as well as performing a physical examination all of which is documented in its entirety in the electronic health record. I reviewed the pathophysiology of the disorder, potential contributing and risk factors as well as treatment options to address their complaints. Today no imaging was obtained. I will request imaging from their dental provider. I've discussed the pros and cons of advanced imaging with MRI. I also suggested a consult with her dentist to address dental caries. From a treatment perspective I've recommended two phase treatment: First phase begins with home self management designed to rest the muscles of mastication and reduce inflammation in the temporomandibular joints. This includes heat and ice compresses, eating a soft food or pain-free diet, bilateral chewing, identifying and decreasing daytime muscle tension and modification of their sleep position. I explained and demonstrated in great detail self management of TMD. Beyond self management I do believe that they would benefit from a mandibular intraoral appliance to help stabilize the musculoskeletal structures of the jaw. In addition I've recommended rehabilitation with physical therapy. Second phase of treatment consists of orthodontic and/or surgical correction of malocclusion, if desired. The goal of treatment is to improve pain, function and focus on long-term self-management strategies. I emphasized the importance of stress management and discussed health psychology. Lakeshia stated that she already had a therapist and was working on stress reduction with yoga and jocelyni jivirginiau. In addition, three blood pressure readings were taken today. At the beginning of appointment, blood pressure was 169/125. One hour later at the end of the appointment, blood pressure was taken twice more: 158/121 and 179/133.She stated that she was also feeling clammy. I suggested that Lakeshia contact her PCP immediately for consult. As an alternative, I suggested she report to urgent care or ER. Lakeshia stated that she would report to urgent care in [place]. History today was obtained from the patient. The patient has 4 diagnoses they would like to address. Their symptoms are worsening. This case is moderate complexity because of multiple diagnoses with chronic symptoms. Risk of complications including disease progression were discussed. Today time spent may have included a review of past records, history taking, review of diagnoses, contributing factors, treatment plan, diagnostic testing, prognosis, expectations, risks and complications of treatment/no treatment, discussions with other providers and completing documentation was 75+ minutes. I've suggested that the patient return for follow-up care in 2-4 weeks. Not available 01/25/2021 21:33:35 Plan of Treatment Reminders Order Date Submit Date Provider Last Modified By Organization Details Last Modified Time Details Appointments None recorded. Lab None recorded. Referral physical therapist referral 2020 021 Not available 21:36:35 Procedures None recorded. Surgeries None recorded. Imaging None recorded. Medication Orders None recorded. Patient TargetsNo targets recorded. Patient Instructions Encounter Date Encounter Id Patient Instructions Last Modified By Organization Details Last Modified Time 01/25/2021 [id number] oral appliance preparation* Not available 01/25/2021 21:36:35 Self Care for TMD Not availabl e 01/25/2021 21:36:35 Reason for Referral Physical Therapist Referral for Myofascial pain Referring Physician: Karen Still, Pain Management, Encounter Date: 01/25/2021 Results Created Date Observation Date Name Description Value Unit Range Abnormal Flag Note LastModifiedBy Organization Detail LastModifiedTime 01/26/20 21 01/25/2021 oral appli ance prepa ratio n* Type of appliance mandib ular stabil izatio n applia nce Not Available [place] [address], [place], [address], 01/25/2021 21:34:34 Result Notes None recorded. 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 21:18:19 Myofascia l pain 369491347 Active 2020 masticato ry Karen gross, [facility] 21:18:34 Neck pain 53499835 Active 2020 Karen gross, [facility] 21:18:08 Malocclus ion of teeth 18455039 Active 2020 Karen gross, [facility] 21:18:09 Problem Notes None recorded. Medical Equipment None Reported. Allergies Allergen ID Allergen Name Allergen Category Reaction Reaction Severity Criticality Documentation Date Start Date Code Code System Note Provider Name and Address Organization Details Recorded Time 06244 Compazine medicatio n Not available Not available Not available 01/25/2021 79469 [address] [facility] 14:11:51 60562 Flonase medicatio n Not available Not available Not available 01/25/2021 [address] [facility] 14:12:17 Medications Name Sig Start Date Stop Date Status Note LastModified by Organization Details LastModified Time fluconazole 150 mg tablet TAKE ONE TABLET BY MOUTH ONCE FOR ONE DOSE 01/25 completed Not Available Not Available Not Available dextroamphe tamine-amph etamine 10 mg tablet TAKE ONE TABLET BY MOUTH EVERY DAY IN THE EARLY AFTERNOON NEEDED active Not Available Not Available No t Available sumatriptan 50 mg tablet TAKE ONE TABLET BY MOUTH ONCE, MAY REPEAT IN 2 HOURS IF SYMPTOMS PERSIST. MAX 4 TABLETS IN 24 HOURS 01/25 completed Not Available Not Available Not Available butalbital 50 mg-acetamin ophen 325 mg tablet TAKE TWO TABLETS BY MOUTH EVERY 4 HOURS NEEDED, MAX 6 TABLETS PER 24 HOURS 01/25 completed Not Available Not Available Not Available alprazolam 0.5 mg tablet TAKE ONE TABLET BY MOUTH APPROXIMA TELY 20 TO 30 MINUTES PRIOR TO FLYING 01/25 completed Not Available Not Available Not Available dextroamphe tamine-amph etamine 20 mg tablet TAKE TWO TABLETS BY MOUTH EVERY MORNING active Not Available Not Available No t Available methylpredn isolone 4 mg tablets in a dose pack TAKE DIRECTED ON PACKAGING 01/25 completed Not Available Not Available Not Available oxycodone 5 mg tablet TAKE ONE TABLET BY MOUTH EVERY 4 HOURS NEEDED 01/25 completed Not Available Not Available Not Available desvenlafax ine succinate ER 50 mg tablet,exte nded release 24 hr TAKE ONE TABLET BY MOUTH EVERY DAY WITH 25MG FOR 75MG DAILY 01/25 completed Not Available Not Available Not Available Pristiq 100 mg tablet,exte nded release Take 1 tablet every day by oral route. active Not Available Not Available No t Available desvenlafax ine succinate ER 25 mg tablet,exte nded release 24 hr TAKE ONE TABLET BY MOUTH EVERY DAY WITH 50 MG TABLET FOR TOTAL DAILY DOSE OF 75 MG 01/25 completed Not Available Not Available Not Available Vitals Date Recorded Body temperature Heart rate Systolic blood pressure Diastolic blood pressure Provider Name and Address Organization Details Last Updated DateTime 01/25/2021 97.7 [degF] 76 /min 169 mm[Hg] 125 mm[Hg] Mechelle Li [facility] 01/25/2021 14:11:10 Date Recorded Systolic blood pressure Diastolic blood pressure Systolic blood pressure Diastolic blood pressure Provider Name and Address Organization Details Last Updated DateTime 01/25/2021 158 mm[Hg] 121 mm[Hg] 179 mm[Hg] 133 mm[Hg] Lyubov Still [facility] 21:11:27 Social History Question Answer Notes LastModified by Organizat ion Details LastModified Time Tobacco Smoking Status Former Smoker [facility] - [facility] 01/25/2021 15:11:51 What Is Your Level Of Alcohol Consumption? Occasional Information not available 01/25/2021 What Is Your Level Of Caffeine Consumption? Occasional Information not available 01/25/2021 What Type Of Diet Are You Following? REGULAR Information not available 01/25/2021 What Is The Highest Grade Or Level Of School You Have Completed Or The Highest Degree You Have Received? [id number] Information not available 01/25/2021 What Is Your Relationship Status? Information not available 01/25/2021 Do You Feel Stressed (tense, Restless, Nervous, Or Anxious, Or Unable To Sleep At Night)? [id number] Information not available 01/25/2021 Sex: Unknown Functional Status None recorded. Mental Status None recorded. Family History Relationship Description Onset Age of this Age Resolved Age Notes LastModified by Organization Details LastModified Time Mother Depressive disorder Not available 2020 15:10:10 Mother Heart disease Not available 2020 15:10:36 Mother Migraine Not available 01/25/2021 15:10:57 Father Heart disease Not available 2020 15:10:36 Medical History Condition Response Chronic fatigue syndrome Y Migraines Y Depression Y Anxiety Disorder Y Muscle, Joint, or Bone Problems Y Headaches Y Gynecological HistoryNo gynecological history recorded. 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 Neck pain 87729288 M54.2 Malocclusion of teeth 47 534184 M26.4 Health Concerns Section Related Observation LastModified by Organization Detai ls LastModified Time None Recorded Concern Status LastModified by Organization Details LastModified Time None Recorded Advance Directives Directive None Recorded Payers Encounter Date Sequence Insurance Name Policy Number Policy Ozuna Covered Member ID Ozuna Member ID Guarantor Name 01/25/2021 1 [employer] Dannie Geiger [id number] Lakeshia Pretty Notes Date Note Type Note Provider Name and Address Organization Details Recorded Time 01/25/2021 text/html general HPI for jaw, face, TMD painReported bypatient.Onset:starte d 20 year(s) ago Location:bilateral; masseteric; mandibular; preauricular; temporal Quality:dull; aching; sore; shooting; sharp; stabbing Severity:pain level 2-10/10 Durationconstant Symptom triggers:clenching; bruxism; stress Associated Symptoms:jaw clicking bilateral;jaw popping bilateral;jaw locks closed bilateral;headaches;ti nnitus;causing awakening from sleep;causing inability to sleep; limited opening Prior opinionprimary care provider Patient presents today for evaluation of a possible temporomandibular disorder. These symptoms are {{acute chronic*}} and began with {{ no clear triggering events significant stress and tension*}}. Previous consultation include {{ none evaluation with his/her primary care provider evaluation with his/her dentist evaluation with both his/her dentist and primary care provider evaluation with her primary care provider#}}. Symptoms are {{right sided only left sided only bilateral*}} and aggravated by {{ no clear triggers jaw use and function clenching and grinding of their teeth* stress and tension}}. The patient is {{aware* not aware}} of teeth clenching and grinding. Lakeshia reports that before she had braces as a teenager, she had a class III occlusion and a crossbite. She has since had a long history of jaw pain, tmj clicking, and headaches. In addition, she has developed a partial relapse of her malocclusion. She consulted with a doctor in 2002 who told her that she would need surgery followed by having her mouth wired shut to correct her malocclusion and jaw pain. She was not interested in surgery. Over the years, her jaw pain has ebbed and flowed in intensity. She has tried p/t in the past and continues doing home stretches. Her pain has intensified over the past 3-6 months, but it is always at least 2/10. She feels like she needs to hold her jaw in its protrusive position in order for it to relax. At night, she wraps her jaw in order to hold it posteriorly. Otherwise, she will protrude her jaw during the night. Lakeshia states that she has always been under high stress. She finds it difficult managing day to day activities. She goes to therapy 2x/week, but she does not find it helpful in stress management. She also does yoga and jiu jitsu. Lakeshia takes adderall but does not believe it causes her to clench her teeth. She did not take adderall when , and she did not notice a difference. Lakeshia has a 14 month old baby and three other children. MICKI [facility] - [facility] 01/25/2021 21:36:38 OBGyn Episode No OBEpisode recorded.
--- OUTSIDE RECORDS SUMMARY | 2024-10-31 10:58 | XMS_ITS | Encounter Summary ---
Author Organization [facility] Address [address] [place] [address] Care Team Providers Care Assistant Service Manager Name Role Phone Bianka Bourgeois PA-C Unavailable [phone] Bianka Bourgeois sports analyst Provider Unavailab Adrianna Britt APRN RETAIL WORKER Primary Care Provider Ramon Reza PA-C Primary Care Provider [phone] Amarilys Hernandez GERMAN TUTOR Unavailable Unavailable Ramon Reza PA-C Unavailable [phone] Chelsea Alcantar RN Unavailable [phone] Ramon Reza PA-C Unavailable [phone] [facility]- Primary Care Provider No Ref-Primary, Physician Primary Care Provider [facility] Primary Care Provider Reason for Visit * Reason Onset Date Comments Refill Request 03/03/2014 Encounter Details Date Type Department Care Team (Late st Contact Info) Description 03/03/2014 [facility] [address] [place] [address] Adrianna Leiva APRN RETAIL WORKER [address] [place] [address] Refill Request Social History Tobacco Use Types Packs/Day Years Used Date Smoking Tobacco: Never Alcohol Use Standard Drinks/Week Comments No 0 (1 standard drink = 0.6 oz pur e alcohol) Comments No Sex and Gender Information Value Date Recorded Sex Assigned at Not on file Legal 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 I will refill her retin-a but i need to know the strength of the previous cream or gel she was using so I can send it in for her. Can we call and check on this please. GIL * Telephone Encounter - Michelle Vines - 03/03/2014 5:57 PM CDT Patient would like to get new rxs here at [place]. Retin A Fioricet Pleasesend new rxs if appropriate. Thank you, Michelle Vines, [facility] Float documented in this encounter Plan of Treatment Not on file documented as of this encounter Visit Diagnoses Not on filedocumented in this encounter Care Teams Assistant Service Manager Relationship Specialty Start Date End Date Bianka Bourgeois, WINDY PCP - General 05/14/11 03/16/14 Adrianna Leiva APRN CNP [address] [place] [address] PCP - General Family Practice 03/17/14 04/27/14 Ramon Reza PA-C [address] [place] [address] PCP - General Physician Merchandising Specialist - Medical 04/28/14 09/23/18 Ramon Reza PA-C [address] [place] [address] PCP - Assigned PCP 05/03/14 08/27/18 [facility]- [address] [place] [address] PCP - General 09/24/18 10/23/18 No Ref-Primary, Physician PCP - General 10/24/18 09/25/[address] [id number] PCP - General Internal Medicine 09/26/19 Bianka Bourgeois PA-C Physician Merchandising Specialist 05/14/11 Amarilys Hernandez, [facility] Casino Runner 03/22/18 Chelsea Alcantar, RN Lead Casino Runner 07/03/18 9 Ramon Reza PA-C [address] [place] [address] Assigned PCP 05/03/14 08/06/21 documented as of this encounter
--- OUTSIDE RECORDS SUMMARY | 2024-10-31 10:58 | XMS_ITS | Encounter Summary ---
Author Organization [place] Address [address] [place] [address] Care Team Providers Care Airport Driver Name Role Phone Bianka Bourgeois PA-C Unavailable [phone] Ramon Reza PA-C Primary Care Provider [phone] Amarilys Hernandez Unavailable Unavailable Ramon Reza PA-C Unavailable [phone] Chelsea Alcantar RN Unavailable [phone] Ramon Reza PA-C Unavailable [phone] [facility]- Primary Care Provider No Ref-Primary, Physician Primary Care Provider [facility] Primary Care Provider Reason for Visit * Reason Onset Date Comments Pt. Information/instruction 03/15/2018 Test results Encounter Details Date Type Department Care Team (Late st Contact Info) Description 03/15/2018 MyC Medical Advice [facility] [address] [facility], [address] [place] [address] Ramon Reza PA-C [address] [place] [address] Pt. 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 This is interesting that it came up now, NOT when I gave her the results of her urine drug screen, that showed THC and did NOT show adderall. Please send to Loretta/Tammy as well, thank you documented in this encounter Plan of Treatment Not on file documented as of this encounter Visit Diagnoses Not on filedocumented in this encounter Additional Health Concerns Assessment Noted Time PHQ-9 Depression Total Score: 7 02/17/20 18 7:19 AM CDT documented as of this encounter Care Teams Airport Driver Relationship Specialty Start Date End Date Ramon Reza PA-C PCP - General Physician Tissue Rewinder - Medical 04/28/14 09/23/18 Ramon Reza PA-C [address] [place] [address] PCP - Assigned PCP 05/03/14 08/27/18 [facility]- [address] [place] [address] PCP - General 09/24/18 10/23/18 No Ref-Primary, Physician PCP - General 10/24/18 09/25/19 Clinic - [address] [address] PCP - General Internal Medicine 09/26/19 Bianka Bourgeois PA-C Physician Tissue Rewinder 05/14/11 Amarilys Hernandez, [facility] Clinic Wheelchair Van Operator First Responder 03/22/18 Chelsea Alcantar, RN Lead Wheelchair Van Operator First Responder 07/03/18 9 Ramon Reza PA-C [address] [place] [address] Assigned PCP 05/03/14 08/06/21 documented as of this encounter
[2024-10-31 11:13] VITALS: BP 167/117; PULSE 82; RESP 16; TEMP 36.5; O2SAT 100; BMI 24.1
--- NOTE | 2024-10-31 11:15 | ED_ITS ---
HPI - Chest Pain General Chief Complaint: Chest Pain Stated Complaint: having chest pain Time Seen by Provider: 10/31/24 11:06 History of Present Illness HPI narrative: This 39-year-old female comes in reporting episodes of chest pain in her right upper anterior chest. This is been happening on and off over the past month. She states that she often feels that briefly in the morning. Today it seemed to happen longer so she called her primary clinic and was instructed to come here. She does not report any nausea, vomiting, lightheadedness, shortness of breath, diaphoresis, or exercise intolerance. She states that the pain is not related to exertion and it is not reproducible with deep breath or other activity. She does have some cardiac risk factors including family history and hypertension. She is taking irbesartan but states that she has been checking her blood pressur e and it has been consistently somewhat elevated day after day usually in the 150s range. Related Data Home Medications ?Medication ?Instructions ?Recorded ?Confirmed trazodone 50 mg tablet 50 mg PO PRN 02/13/22 09/08/22 irbesartan 150 mg tablet 150 mg PO DAILY 09/08/22 10/31/24 sumatriptan 20 mg/actuation nasal 20 mg intranasal Q2H PRN migraine 09/08/22 10/31/24 spray headache dextroamphetamine-amphetamine 10 1 tab PO BID 10/31/24 10/31/24 mg tablet dextroamphetamine-amphetamine ER 1 cap PO DAILY 10/31/24 10/31/24 30 mg 24hr capsule,extend release Previous Rx's ?Medication ?Instructions ?Recorded albuterol sulfate 2.5 mg/3 mL 2.5 mg (3 mL) inhalation Q4-6H PRN 06/05/22 (0.083 %) solution for nebulization shortness of breath or wheezing #75 mL fluconazole 150 mg tablet 150 mg PO Q3D 2 doses #2 tabs 09/08/22 (Diflucan) Allergies Allergy/AdvReac Type Severity Reaction Status Date / Time prochlorperazine (From Allergy Severe Verified 10/31/24 11:05 Compazine) Sulfa (Sulfonamide Allergy Severe Hives Verified 10/31/24 11:05 Antibiotics) fluticasone (From Flonase) Allergy Verified 10/31/24 11:05 hydrocodone AdvReac Unknown metabolizes Verified 10/31/24 11:05 too quickly Review of Systems Status of ROS Reports: 10 or more systems reviewed and unremarkable except as noted in History and below Narrative Constitutional: No fevers, no weight gain or loss. Eyes: No discharge. No vision changes. HENT: No congestion, no sore throat, no ear pain. Cardiovascular: No chest pain, no palpitations. Respiratory: No shortness of breath, no wheezes, no cough. Gastrointestinal: No abdominal pain, no vomiting, no diarrhea. Genitourinary: No dysuria, no hematuria. Musculoskeletal: Normal range of motion. Skin: No rashes, no pruritis. Neurological: No dizziness, weakness, sensory change, speech change. Endo/Heme/Allergies: No bruising or bleeding. No polydipsia. Pysch: no suicidality, no insomnia. She does report some anxiety stim comes and states that she has recently gone through a divorce. All other systems reviewed and are negative. [facility] Medical History History of asthma ?Z87.09 - Personal history of other diseases of the respiratory system (ICD- 10) Surgical History History of dilation and curettage ?Z98.890 - Other specified postprocedural states (ICD-10) Family History Family/Other ADHD Social History Narrative: Fmip-ua-sery mom. . Nonsmoker. No illicit drug use. Smoking Status: Former smoker Do you use any of these nicotine containing products: None Second hand tobacco smoke exposure: No How often do you have a drink containing alcohol: never AUDIT-C Alcohol total score: 0 Non-prescribed substance use: denies use Exam Narrative Exam Narrative: Constitutional: Well-developed, well-nourished, no acute distress. HEENT: Normocephalic, atraumatic. Neck: Normal range of motion. Nontender. Supple. Heart: Regular. No murmurs. Normal rate. Intact distal pulses. Lungs: Clear to auscultation. No chest discomfort. No wheezes, rhonchi, or rales. Abdomen: Normal bowel sounds. Nontender. No rebound tenderness. Genitalia: Deferred. Back: No midline tenderness. Normal range of motion. Extremities: Normal range of motion. No injury. Skin: Intact. No rash. Warm. No erythema or pallor. Neurologic: No altered sensation. No weakness. Alert and oriented. Psychiatric: No suicidality. Nursing notes and vitals signs are reviewed. Const Vital Signs, click to edit/add: Vital Signs - 24 hr 10/31/24 11:13 10/31/24 12:33 10/31/24 12:34 Temperature 97.7 F Pulse Rate 75 81 Pulse Rate [Pulse Oximeter] 82 Respiratory Rate 16 Blood Pressure [Right Upper Arm] 167/117 H Pulse Oximetry 100 100 100 Oxygen Delivery Method Room Air Course Vital Signs Vital signs: Initial Vital Signs Temperature 97.7 F 10/31/24 11:13 Temperature Source Temporal Artery Scan 10/31/24 11:13 Pulse Rate 82 10/31/24 11:13 Respiratory Rate 16 10/31/24 11:13 Blood Pressure 167/117 H 10/31/24 11:13 Blood Pressure Mean 133 H 10/31/24 11:13 Blood Pressure Position High-Fowlers 10/31/24 11:13 Pulse Oximetry 100 10/31/24 11:13 Oxygen Delivery Method Room Air 10/31/24 11:13 Vital Signs Temperature 97.7 F 10/31/24 11:13 Pulse Rate 82 10/31/24 11:13 Respiratory Rate 16 10/31/24 11:13 Blood Pressure 167/117 H 10/31/24 11:13 Pulse Oximetry 100 10/31/24 11:13 Oxygen Delivery Method Room Air 10/31/24 11:13 Temperature 97.7 F 10/31/24 11:13 Pulse Rate 81 10/31/24 12:34 Respiratory Rate 16 10/31/24 11:13 Blood Pressure 167/117 H 10/31/24 11:13 Pulse Oximetry 100 10/31/24 12:34 Oxygen Delivery Method Room Air 10/31/24 11:13 MDM - Chest Pain MDM Narrative Medical decision making narrative: This patient comes in reporting episodes of chest discomfort as described above. She does not have any other associated symptoms. She states that she is undergoing more stress recently as she is going through a divorce. She is interested in having a good workup to rule out anything that is consequential so that she can allay her worries. EKG, labs, and ultrasound results are all reassuring. She was glad to hear these findings is okay to be discharged home. Lab Data Labs: Lab Results 10/31/24 10/31/24 Range/Units 11:47 11:55 WBC 4.91 (4.50-11.00) K/uL RBC 4.24 (4.00-5.20) m/uL Hgb 13.4 (12.0-16.0) gm/dL Hct 39.1 (33.0-51.0) % MCV 92 (80-100) fL MCH 32 (26-34) pg MCHC 34 (32-36) gm/dL RDW Coeff of Doreen 12.0 (11.5-15.5) % Plt Count 255 (140-440) K/uL Neut % (Auto) 61.6 (42.0-72.0) % Lymph % (Auto) 28.9 (20-44) % Catahoula % (Auto) 7.9 (0.0-11.0) % Eos % (Auto) 1.0 (0.0-7.0) % Baso % (Auto) 0.4 (0.0-3.0) % Neut # (Auto) 3.02 (1.7-7.0) K/uL Lymph # (Auto) 1.42 (0.90-2.90) K/uL Cata[place]oula # (Auto) 0.40 (0.00-0.90) K/UL Eos # (Auto) 0.05 (0.00-0.50) K/uL Baso # (Auto) 0.02 (0.00-0.30) K/uL Abs Immat Gran (auto) 0.01 (0.00-0.30) K/uL Imm/Tot Granulo (auto) 0.2 % D-Dimer Quant (PE/DVT) 0.04 (0.00-0.50) ug/ml Sodium 138 (135-149) mmol/L Potassium 4.5 (3.6-5.1) mmol/L Chloride 101 (96-114) mmol/L Carbon Dioxide 27 (20-32) mmol/L Anion Gap 10 (7-15) mEq/L BUN 13 (5-24) mg/dL Creatinine 0.7 (0.5-1.5) mg/dL Estimated Creat Clear 87.49 Estimated GFR 111 ml/min Glucose 93 (60-115) mg/dL Calcium 9.1 (8.4-10.6) mg/dL POC Troponin I 0.00 L (0.01-0.04) ng/ml ECG Data Attestation: I personally reviewed and interpreted this ECG as follows: Interpretation: Normal sinus rhythm. Rate is 79 beats per minute. There are no ST or T-wave abnormalities. Discharge Plan Discharge Clinical Impression: Atypical chest pain Patient Disposition: Home, Self-Care Condition: Stable Additional Instructions: Use vmcj-gty-aulxnbi medicines as needed and directed. Activity as tolerated. Follow up with MD return if worsening. Prescriptions: No Action sumatriptan 20 mg/actuation spray,non-aerosol 20 mg intranasal Q2H PRN (Reason: migraine headache) Rx Instructions: ONE SPRAY IN ONE NOSTRIL AT ONSET OF HEADACHE, MAY REPEAT ONCE IN 2HRS PRN, MAX 2 SPRAYS/24 HR irbesartan 150 mg tablet 150 mg PO DAILY fluconazole [Diflucan] 150 mg tablet 150 mg PO Q3D 0 Days Qty: 2 0RF Rx Instructions: 1 po stat, may repeat in 3 days trazodone 50 mg tablet 50 mg PO PRN Patient Comments: TAKE ONE TO TWO TABLETS BY MOUTH AT BEDTIME IF NEEDED albuterol sulfate 2.5 mg /3 mL (0.083 %) solution for nebulization 2.5 mg inhalation Q4-6H PRN (Reason: shortness of breath or wheezing) Qty: 75 0RF dextroamphetamine-amphetamine 10 mg tablet 1 tab PO BID dextroamphetamine-amphetamine 30 mg capsule,extended release 24hr 1 cap PO DAILY Follow Up/Referrals: Provider,Not a Local [Primary Care Provider] - Stand Alone Forms: MyHealth Info Instructions Procedures Ultrasound Other exam #1: Anatomical areas examined: Heart, lungs, gallbladder, IVC Indications: Chest discomfort Description/findings: Normal anatomy with no sign of abnormality. Impression: Negative exam.
[2024-10-31 12:02] LABS: Basophils Absolute Auto 0.02 K/uL (0.00-0.30); Basophils Percent Auto 0.4 % (0.0-3.0); Eosinophils Absolute Auto 0.05 K/uL (0.00-0.50); Hematocrit* 39.1 % (33.0-51.0); Hemoglobin* 13.4 gm/dL (12.0-16.0); Immature Granulocytes Abs Auto 0.01 K/uL (0.00-0.30); Immature Granulocytes Pct Auto 0.2 %; Lymphocytes Absolute Auto 1.42 K/uL (0.90-2.90); Lymphocytes Percent Auto 28.9 % (20-44); Mean Corpuscular HGB Conc 34 gm/dL (32-36); Mean Corpuscular Hemoglobin 32 pg (26-34); Mean Corpuscular Volume 92 fL (80-100); Monocytes Percent Auto 7.9 % (0.0-11.0); Neutrophils Absolute Auto 3.02 K/uL (1.7-7.0); Neutrophils Percent Auto 61.6 % (42.0-72.0); Platelet Count* 255 K/uL (140-440); Red Blood Count* 4.24 m/uL (4.00-5.20); White Blood Count* 4.91 K/uL (4.50-11.00)
[2024-10-31 12:06] LABS: Slide Review Reflex No
[2024-10-31 12:15] LABS: Chloride* 101 mmol/L (96-114); Sodium* 138 mmol/L (135-149)
[2024-10-31 12:16] LABS: Potassium* 4.5 mmol/L (3.6-5.1)
--- OUTSIDE RECORDS SUMMARY | 2024-10-31 12:16 | XMS_ITS | Encounter Summary ---
Author Organization [facility] Address [address] [place] [address] Care Team Providers Care Motorized Squad Commanding Officer Name Role Phone Bianka Bourgeois PA-C Unavailable [phone] Ramon Reza PA-C Primary Care Provider [phone] Ramon Reza PA-C Unavailable [phone] Chelsea Alcantar RN Unavailable [phone] Ramon Reza PA-C Unavailable [phone] [facility]- Primary Care Provider No Ref-Primary, Physician Primary Care Provider [facility] Primary Care Provider Reason for Visit * Reason Onset Date Comments Refill Request 07/31/2018 eszopiclone (ANAHI ESTA) 3 MG tablet Referral 07/31/2018 Sleep study Encounter Details Date Type Department Care Team (Late st Contact Info) Description 07/31/2018 MyC Medical Advice [place] [id number] [facility], [address] [place] [address] Ramon Reza PA-C [address] [place] [address] Refill Request (eszopiclone (LUNESTA) 3 [...] on file Legal 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 RN PEDIATRIC ICU Gender Identity Not on file Sexual Orientation Not on file documented as of this encounter Miscellaneous Notes * Telephone Encounter - Galina Padilla - 07/31/2018 9:24 AM RN PEDIATRIC ICU Rx [facility], pharmacy will notify patient when ready to be picked up. Leo Padilla Aba Therapist 07/31/18 9:24 AM PEDIATRIC ICU * Telephone Encounter - Ramon Reza PA-C - 07/31/2018 8:11 AM RN PEDIATRIC ICU Sleep referral is in her chart from 10/01/17. I will refill her med and see her Sunday. Ramon PEDIATRIC ICU * Telephone Encounter - Yoselin Ivory RN - 07/31/2018 7:45 AM CST Lunesta 3mg Last Written Prescription Date: 06/21/2018 Last Fill Quantity: 30, # refills: 0 Last Office Visit: 05/31/2018 Future Office visit: Next 5 appointments (look out 90 days) Aug 05, 2018 10:00 AM RN PEDIATRIC ICU Matt Koehler with Ramon Reza PA-C [facility] [address] [place] [address], [address] [facility] [address] Routing refill request to provider for review/approval because: Drug not on the [facility], P or [facility] refill protocol or controlled substance. Yoselin Ivory RN PEDIATRIC ICU documented in this encounter Plan of Treatment Not on file documented as of this encounter Visit Diagnoses Diagnosis Other insomnia documented in this encounter Additional Health Concerns Assessment Noted Time PHQ-9 Depression Total Score: 7 02/17/20 18 7:19 AM CDT documented as of this encounter Care Teams Motorized Squad Commanding Officer Relationship Specialty Start Date End Date Ramon Reza PA-C PCP - General Physician Learning And Development Assistant - Medical 04/28/14 09/23/18 Ramon Reza PA-C [address] [address] PCP - Assigned PCP 05/03/14 08/27/18 [facility]- [address], [place] [address] PCP - General 09/24/18 10/23/18 No Ref-Primary, Physician PCP - General 10/24/18 09/25/[address] 855587 PCP - General Internal Medicine 09/26/19 Bianka Bourgeois PA-C Physician Learning And Development Assistant 05/14/11 Chelsea Alcantar, RN Lead Melt House Drag Operator 07/03/18 9 Ramon Reza PA-C [address] [address] [address] Assigned PCP 05/03/14 08/06/21 documented as of this encounter
--- OUTSIDE RECORDS SUMMARY | 2024-10-31 12:16 | XMS_ITS | Encounter Summary ---
Author Organization [facility] Address [address] [place] [address]. [place] [address] Care Team Providers Care Elevator Repairer Apprentice Name Role Phone Bianka Bourgeois PA-C Unavailable [phone] Ramon Reza PA-C Primary Care Provider [phone] Amarilys Hernandez Unavailable Unavailable Ramon Reza PA-C Unavailable [phone] Chelsea Alcantar RN Unavailable [phone] Ramon Reza PA-C Unavailable [phone] [facility]- Primary Care Provider No Ref-Primary, Physician Primary Care Provider [facility] Primary Care Provider Reason for Visit * Reason Onset Date Comments Refill Request 03/21/2018 Ajit Encounter Details Date Type Department Care Team (Late st Contact Info) Description 03/21/2018 MyC Medical Advice [facility] [address] [facility], [address] [place] [address] Ramon Reza PA-C [address] [place] [address] Refill Request (Ajit) Social History [...] on file 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 Gender Identity Not on file Sexual Orientation Not on file documented as of this encounter Plan of Treatment Not on file documented as of this encounter Visit Diagnoses Not on filedocumented in this encounter Additional Health Concerns Assessment Noted Time PHQ-9 Depression Total Score: 7 02/17/20 18 7:19 AM CDT documented as of this encounter Care Teams Elevator Repairer Apprentice Relationship Specialty Start Date End Date Ramon Reza PA-C PCP - General Physician Insurance Auditor - Medical 04/28/14 09/23/18 Ramon Reza PA-C [address] [place] [address] PCP - Assigned PCP 05/03/14 08/27/18 [facility]- [address] [place] [address] PCP - General 09/24/18 10/23/18 No Ref-Primary, Physician PCP - General 10/24/18 09/25/[address] [address] PCP - General Internal Medicine 09/26/19 Bianka Bourgeois PA-C Physician Insurance Auditor 05/14/11 Amarilys Hernandez, [facility] Firer Marine 03/22/18 Chelsea Alcantar, RN Lead Firer Marine 07/03/18 9 Ramon Reza PA-C [address] [place] [address] Assigned PCP 05/03/14 08/06/21 documented as of this encounter
--- OUTSIDE RECORDS SUMMARY | 2024-10-31 12:16 | XMS_ITS | Encounter Summary ---
Author Organization [facility] Address [address] [place] [address] Care Team Providers Care Rivet Hammer Machine Operator Name Role Phone Bianka Bourgeois PA-C Unavailable [phone] Ramon Reza PA-C Primary Care Provider [phone] Ramon Reza PA-C Unavailable [phone] Chelsea Alcantar RN Unavailable [phone] Ramon Reza PA-C Unavailable [phone] [facility]- Primary Care Provider No Ref-Primary, Physician Primary Care Provider 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 Gender Identity Not on file Sexual Orientation Not on file documented as of this encounter Plan of Treatment Not on file documented as of this encounter Visit Diagnoses Not on filedocumented in this encounter Additional Health Concerns Assessment Noted Time PHQ-9 Depression Total Score: 7 02/17/20 18 7:19 AM CDT documented as of this encounter Care Teams Rivet Hammer Machine Operator Relationship Specialty Start Date End Date Ramon Reza PA-C PCP - General Physician Fur Blowing Machine Operator - Medical 04/28/14 09/23/18 Ramon Reza PA-C [address] [address] [address] PCP - Assigned PCP 05/03/14 08/27/18 [facility]- [address] [place] [address] PCP - General 09/24/18 10/23/18 No Ref-Primary, Physician PCP - General 10/24/18 09/25/19 [facility] - [address] [address] PCP - General Internal Medicine 09/26/19 Bianka Bourgeois PA-C Physician Fur Blowing Machine Operator 05/14/11 Chelsea Alcantar, RN Lead Urgent Care Nurse Practitioner 07/03/18 9 Ramon Reza PA-C [address] [address] [address] Assigned PCP 05/03/14 08/06/21 documented as of this encounter
--- OUTSIDE RECORDS SUMMARY | 2024-10-31 12:16 | XMS_ITS | Encounter Summary ---
Author Organization [place] Address [address] [place] [address] Care Team Providers Care Diesel Engine Fitter Name Role Phone Bianka Bourgeois PA-C Unavailable [phone] Ramon Reza PA-C Primary Care Provider [phone] Amarilys Hernandez Unavailable Unavailable Ramon Reza PA-C Unavailable [phone] Chelsea Alcantar RN Unavailable [phone] Ramon Reza PA-C Unavailable [phone] [facility]- Primary Care Provider No Ref-Primary, Physician Primary Care Provider Clinic - [facility] Primary Care Provider Reason for Visit * Reason Onset Date Comments MyChart Communication 02/22/2018 Encounter Details Date Type Department Care Team (Late st Contact Info) Description 02/22/2018 MyC Medical Advice [facility] [address] [facility], [address] [place] [address] Ramon Reza PA-C [address] [place] [address] MyChart Communication Social History Tobacco [...] on file 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- [address], [place] [address] PCP - General 09/24/18 10/23/18 No Ref-Primary, Physician PCP - General 10/24/18 09/25/[address] [address] PCP - General Internal Medicine 09/26/19 Bianka Bourgeois PA-C Physician Lang Path Therapist 05/14/11 Amarilys Hernandez, [facility] Clinic Percussion Teacher 03/22/18 Chelsea Alcantar, RN Lead Percussion Teacher 07/03/18 9 Ramon Reza PA-C [address] [place] [address] Assigned PCP 05/03/14 08/06/21 documented as of this encounter
--- OUTSIDE RECORDS SUMMARY | 2024-10-31 12:16 | XMS_ITS | Encounter Summary ---
Author Organization [facility] Address [address] [place] [address] Care Team Providers Care Pocketbook Maker Name Role Phone Bianka Bourgeois PA-C Unavailable [phone] Ramon Reza PA-C Primary Care Provider [phone] Ramon RezaC Unavailable [phone] Chelsea Alcantar RN Unavailable [phone] Ramon Reza PA-C Unavailable [phone] [facility]- Primary Care Provider No Ref-Primary, Physician Primary Care Provider Clinic - 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 Gender Identity Not on file Sexual Orientation Not on file documented as of this encounter Plan of Treatment Not on file documented as of this encounter Visit Diagnoses Not on filedocumented in this encounter Additional Health Concerns Assessment Noted Time PHQ-9 Depression Total Score: 7 02/17/20 18 7:19 AM CDT documented as of this encounter Care Teams Pocketbook Maker Relationship Specialty Start Date End Date Ramon Reza PA-C PCP - General Physician Supervisor Drying And Softening - Medical 04/28/14 09/23/18 Ramon Reza PA-C [address] [address] [address] PCP - Assigned PCP 05/03/14 08/27/18 [facility]- [address] [place] [address] PCP - General 09/24/18 10/23/18 No Ref-Primary, Physician PCP - General 10/24/18 09/25/[address] [id number] PCP - General Internal Medicine 09/26/19 Bianka Bourgeois PA-C Physician Supervisor Drying And Softening 05/14/11 Chelsea Alcantar, RN Lead Vocal Performer 07/03/18 9 Ramon Reza PA-C [address] [address] [address] Assigned PCP 05/03/14 08/06/21 documented as of this encounter
--- OUTSIDE RECORDS SUMMARY | 2024-10-31 12:16 | XMS_ITS | Encounter Summary ---
Author Organization [facility] Address [address] [place] [address] Care Team Providers Care Production Cost Estimator Name Role Phone Bianka Bourgeois PA-C Unavailable [phone] Ramon Reza PA-C Primary Care Provider [phone] Amarilys Hernandez Unavailable Unavailable Ramon Reza PA-C Unavailable [phone] Chelsea Alcantar RN Unavailable [phone] Ramon Reza PA-C Unavailable [phone] [facility]- Primary Care Provider No Ref-Primary, Physician Primary Care Provider [facility] Primary Care Provider Reason for Visit * Reason Onset Date Comments Results 02/22/2018 HPV Encounter Details Date Type Department Care Team (Late st Contact Info) Description 02/22/2018 MyC Medical Advice [facility] [address] [facility], [address] [place] [address] [place] [address] [place] [address] Results (HPV) Social History Tobacco [...] on file 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 Gender Identity Not on file Sexual Orientation Not on file documented as of this encounter Plan of Treatment Not on file documented as of this encounter Visit Diagnoses Not on filedocumented in this encounter Additional Health Concerns Assessment Noted Time PHQ-9 Depression Total Score: 7 02/17/20 18 7:19 AM CDT documented as of this encounter Care Teams Production Cost Estimator Relationship Specialty Start Date End Date Ramon Reza PA-C PCP - General Physician Security Support Analyst - Medical 04/28/14 09/23/18 Ramon Reza PA-C [address] [place] [address] PCP - Assigned PCP 05/03/14 08/27/18 [facility]- [address] [place] [address] PCP - General 09/24/18 10/23/18 No Ref-Primary, Physician PCP - General 10/24/18 09/25/19 [facility] - [address] [address] PCP - General Internal Medicine 09/26/19 Bianka Bourgeois PA-C Physician Security Support Analyst 05/14/11 Amarilys Hernandez, [facility] Clinic Rougher Operator 03/22/18 Chelsea Alcantar RN Lead Rougher Operator 07/03/18 9 Ramon Reza PA-C [address] [place] [address] Assigned PCP 05/03/14 08/06/21 documented as of this encounter
--- OUTSIDE RECORDS SUMMARY | 2024-10-31 12:16 | XMS_ITS | Encounter Summary ---
Author Organization [place] Address [address] [place] [address]. [place] [address] Care Team Providers Care Respiratory Care Program Director Name Role Phone Bianka Bourgeois PA-C Unavailable [phone] Ramon Reza PA-C Primary Care Provider [phone] Ramon Reza PA-C Unavailable [phone] Chelsea Alcantar RN Unavailable [phone] Ramon Reza PA-C Unavailable [phone] [facility]- Primary Care Provider No Ref-Primary, Physician Primary Care Provider [facility] Primary Care Provider Reason for Visit * Reason Onset Date Comments Refill Request 06/20/2018 Adderall 10mg Encounter Details Date Type Department Care Team (Late st Contact Info) Description 06/20/2018 MyC Medical Advice [facility] [address] [facility], [address] [place] [address] Ramon Reza PA-C [address] [place] [address] Refill Request (Adderall 10mg) Social [...] on file Legal 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 CORRUGATED FASTENER DRIVER Gender Identity Not on file Sexual Orientation [...] and advise Lizette Lobo RN Nurse Triage UGATED FASTENER DRIVER * Telephone Encounter - Laverne Marshall - 06/21/2018 9:48 AM CST PT stopped in clinic to check on status of RXs. I told her they were not ready and she left. UGATED FASTENER DRIVER * Telephone Encounter - Nell Gonzalez MD - 06/21/2018 8:04 AM CORRUGATED FASTENER DRIVER Please help with this patient. She is [...] calling her medical knowledge up for debate. UGATED FASTENER DRIVER * Telephone Encounter - Nell Gonzalez MD - 06/20/2018 1:04 PM CORRUGATED FASTENER DRIVER appt due UGATED FASTENER DRIVER * Telephone Encounter - Nell Gonzalez MD - 06/20/2018 1:03 PM CORRUGATED FASTENER DRIVER Last time this patient was seen, she [...] for all our patients, not just her UGATED FASTENER DRIVER * Telephone Encounter - Yoselin Ivory RN - 06/20/2018 10:01 AM CST Images from the original note were not included. Adderall 10mg Last Written Prescription Date: 04/18/2018 Last Fill Quantity: 30, # refills: 0 Last Office Visit: 05/31/2018 Future Office visit: Routing refill request to provider for review/approval because: Drug not on the [facility] or [facility] refill protocol or controlled substance. SALES APPLICATIONS ENGINEER checked 06/20/2018: UGATED FASTENER DRIVER documented in this encounter Plan of Treatment Not on file documented as of this encounter Visit Diagnoses Diagnosis Attention deficit hyperactivity disorder (ADHD), other type documented in this encounter Additional Health Concerns Assessment Noted Time PHQ-9 Depression Total Score: 7 02/17/20 18 7:19 AM CDT documented as of this encounter Care Teams Respiratory Care Program Director Relationship Specialty Start Date End Date Ramon Reza PA-C PCP - General Physician Retort Forker - Medical 04/28/14 09/23/18 Ramon Reza PA-C [address] [address] [address] PCP - Assigned PCP 05/03/14 08/27/18 [facility]- [address], [place] [address] PCP - General 09/24/18 10/23/18 No Ref-Primary, Physician PCP - General 10/24/18 09/25/[address] 961217 PCP - General Internal Medicine 09/26/19 Bianka Bourgeois PA-C Physician Retort Forker 05/14/11 Chelsea Alcantar RN Lead Char Filter Tank Tender 07/03/18 9 Ramon Reza PA-C [address] [address] [address] Assigned PCP 05/03/14 08/06/21 documented as of this encounter
--- OUTSIDE RECORDS SUMMARY | 2024-10-31 12:16 | XMS_ITS | Encounter Summary ---
Author Organization [place] Address [address] [place] [address] Care Team Providers Care Unemployment Insurance Director Name Role Phone Bianka Bourgeois PA-C Unavailable [phone] Ramon Reza PA-C Primary Care Provider [phone] Amarilys [place] Unavailable Unavailable Ramon Reza PA-C Unavailable [phone] Chelsea Alcantar RN Unavailable [phone] Ramon Reza PA-C Unavailable [phone] [facility]- Primary Care Provider No Ref-Primary, Physician Primary Care Provider [facility] Primary Care Provider Reason for Visit * Reason Onset Date Comments Pt. Information/instruction 03/15/2018 test results Encounter Details Date Type Department Care Team (Late st Contact Info) Description 03/15/2018 MyC Medical Advice [facility] [address] [facility], [address] [place] [address] Ramon Reza PA-C [address] [place] [address] Pt. 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 Gender Identity Not on file Sexual Orientation Not on file documented as of this encounter Plan of Treatment Not on file documented as of this encounter Visit Diagnoses Not on filedocumented in this encounter Additional Health Concerns Assessment Noted Time PHQ-9 Depression Total Score: 7 02/17/20 18 7:19 AM CDT documented as of this encounter Care Teams Unemployment Insurance Director Relationship Specialty Start Date End Date Raomn Reza PA-C PCP - General Physician Fruit Grower - Medical 04/28/14 09/23/18 Ramon Reza PA-C [address] [place] [address] PCP - Assigned PCP 05/03/14 08/27/18 [facility]- [address] [place] [address] PCP - General 09/24/18 10/23/18 No Ref-Primary, Physician PCP - General 10/24/18 09/25/[address] [address] PCP - General Internal Medicine 09/26/19 Bianka Bourgeois PA-C Physician Fruit Grower 05/14/11 Amarilys [place], [facility] Clinic Sample Body Builder 03/22/18 Chelsea Alcantar, RN Lead Sample Body Builder 07/03/18 9 Ramon Reza PA-C [address] [place] [address] Assigned PCP 05/03/14 08/06/21 documented as of this encounter
--- OUTSIDE RECORDS SUMMARY | 2024-10-31 12:17 | XMS_ITS | Encounter Summary ---
Author Organization [place] Address [address] [place] [address] Care Team Providers Care Applications Specialist Name Role Phone Bianka Bourgeois PA-C Unavailable [phone] Ramon Reza PA-C Primary Care Provider [phone] Amarilys [place] LGSW Unavailable Unavailable Ramon Reza PA-C Unavailable [phone] Chelsea Alcantar RN Unavailable [phone] Ramon Reza PA-C Unavailable [phone] [facility]- Primary Care Provider No Ref-Primary, Physician Primary Care Provider Clinic - [facility] Primary Care Provider Encounter Details Date Type Department Care Team (Late st Contact Info) Description 10/31/2017 MyC Medical Advice [facility] [address] [facility], [address] [place] [address] Nely Sigala MA Social History Tobacco Use Types Packs/Day Years Used Date Smoking Tobacco: Former Cigarettes Q uit: 05/28/2017 Smokeless Tobacco: Never Alcohol Use Standard Drinks/Week Comments No 0 (1 standard drink = 0.6 oz pur e alcohol) Comments No Sex and Gender Information Value Date Recorded Sex Assigned at Not on file Legal 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 ELECTRIC MOTOR WINDER Gender Identity Not on file Sexual Orientation Not on file documented as of this encounter Plan of Treatment Not on file documented as of this encounter Visit Diagnoses Not on filedocumented in this encounter Additional Health Concerns Assessment Noted Time PHQ-9 Depression Total Score: 18 018 4:08 PM ELECTRIC MOTOR WINDER documented as of this encounter Care Teams Applications Specialist Relationship Specialty Start Date End Date Ramon eRza PA-C PCP - General Physician Sales Project Manager - Medical 04/28/14 09/23/18 Ramon Reza [place]-C [address] [place] [address] PCP - Assigned PCP 05/03/14 08/27/18 [facility]- [address] [address] PCP - General 09/24/18 10/23/18 No Ref-Primary, Physician PCP - General 10/24/18 09/25/[address] [id number] PCP - General Internal Medicine 09/26/19 Bianka Bourgeois PA-C Physician Sales Project Manager 05/14/11 Amarilys [place], [facility] Clinic Rail Car Maintenance Mechanic 03/22/18 Chelsea Alcantar, RN Lead Rail Car Maintenance Mechanic 07/03/18 9 Ramon Reza PA-C [address] [place] [address] Assigned PCP 05/03/14 08/06/21 documented as of this encounter
--- OUTSIDE RECORDS SUMMARY | 2024-10-31 12:17 | XMS_ITS | Encounter Summary ---
Author Organization [place] Address [address] [place] [address] Care Team Providers Care Manager Nursing Name Role Phone Bianka Bourgeois PA-C Unavailable [phone] Bianka Bourgeois engineer byproduct Provider Unavailab Adrianna Britt APRN USER EXPERIENCE TEAM LEAD Primary Care Provider Ramon Reza PA-C Primary Care Provider [phone] Amarilys [place] LABORATORY COORDINATOR Unavailable Unavailable Ramon Reza PA-C Unavailable [phone] Chelsea Alcantar RN Unavailable [phone] Ramon Reza PA-C Unavailable [phone] [facility]- Primary Care Provider No Ref-Primary, Physician Primary Care Provider [facility] Primary Care Provider Reason for Visit * Reason Onset Date Comments Refill Request 03/03/2014 Encounter Details Date Type Department Care Team (Late st Contact Info) Description 03/03/2014 [facility] [address] [place] [address] Adrianna Leiva APRN USER EXPERIENCE TEAM LEAD [address] [place] [address] Refill Request Social History Tobacco Use Types Packs/Day Years Used Date Smoking Tobacco: Never Alcohol Use Standard Drinks/Week Comments No 0 (1 standard drink = 0.6 oz pur e alcohol) Comments No Sex and Gender Information Value Date Recorded Sex Assigned at Not on file Legal 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 HOSPITAL EDUCATION COORDINATOR Gender Identity Not on file Sexual Orientation [...] like to get new rxs here at [facility]. Retin A Fioricet Pleasesend new rxs if appropriate. Thank you, Michelle Vines, [facility] Float documented in this encounter Plan of Treatment Not on file documented as of this encounter Visit Diagnoses Not on filedocumented in this encounter Care Teams Manager Nursing Relationship Specialty Start Date End Date Bianka Bourgeois, [place] PCP - General 05/14/11 03/16/14 Adrianna Leiva APRN CNP [address] [place] [address] PCP - General Family Practice 03/17/14 04/27/14 Ramon Reza PA-C [address] [place] [address] PCP - General Physician Real Estate Broker Associate - Medical 04/28/14 09/23/18 Ramon Reza PA-C [address] [place] [address] PCP - Assigned PCP 05/03/14 08/27/18 [facility]- [address] [place] [address] PCP - General 09/24/18 10/23/18 No Ref-Primary, Physician PCP - General 10/24/18 09/25/[address] [id number] PCP - General Internal Medicine 09/26/19 Bianka Bourgeois PA-C Physician Real Estate Broker Associate 05/14/11 Amarilys [place], [facility] Clinic Resource Manager Forester 03/22/18 Chelsea Alcantar, RN Lead Resource Manager Forester 07/03/18 9 Ramon Reza PA-C [address] [place] [address] Assigned PCP 05/03/14 08/06/21 documented as of this encounter
--- OUTSIDE RECORDS SUMMARY | 2024-10-31 12:17 | XMS_ITS | Encounter Summary ---
Author Organization [place] Address [address] [place] [address]. [place] [address] Care Team Providers Care Pick And Shovel Worker Name Role Phone Bianka Bourgeois PA-C Unavailable [phone] Ramon Reza PA-C Primary Care Provider [phone] Amarilys [place] LGSW Unavailable Unavailable Ramon Reza PA-C Unavailable [phone] Chelsea Alcantar RN Unavailable [phone] Ramon Reza PA-C Unavailable [phone] [facility]- Primary Care Provider No Ref-Primary, Physician Primary Care Provider Clinic - [facility] Primary Care Provider Reason for Visit * Reason Onset Date Comments Medication Refill 10/25/2017 L-Methylfolate (DEPLIN) 15 MG TABS Encounter Details Date Type Department Care Team (Late st Contact Info) Description 10/24/2017 Refill [place] [id number] [facility], [address] [place] [address] Ramon Reza PA-C [address] [place] [address] Medication Refill ( L-Methylfolate (DEPLIN) [...] on file Legal 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 ELIGIBILITY CLERK Gender Identity Not on file Sexual [...] for review/approval because: Drug not on the [facility] refill protocol. Yoselin Ivory RN * Telephone [...] Depression Total Score: 18 018 4:08 PM ELIGIBILITY CLERK documented as of this encounter Care Teams Pick And Shovel Worker Relationship Specialty Start Date End Date Ramon Reza PA-C PCP - General Physician Medical Doctor Nuclear Medicine - Medical 04/28/14 09/23/18 Ramon Reza PA-C [address] [address] [address] PCP - Assigned PCP 05/03/14 08/27/18 [facility]- [address], [place] [address] PCP - General 09/24/18 10/23/18 No Ref-Primary, Physician PCP - General 10/24/18 09/25/[address] [id number] PCP - General Internal Medicine 09/26/19 Bianka Bourgeois PA-C Physician Medical Doctor Nuclear Medicine 05/14/11 Amarilys [place], [facility] Clinic Fabricator Foam Rubber 03/22/18 Chelsea Alcantar, RN Lead Fabricator Foam Rubber 07/03/18 9 Ramon Reza PA-C [address] [address] [address] Assigned PCP 05/03/14 08/06/21 documented as of this encounter
--- OUTSIDE RECORDS SUMMARY | 2024-10-31 12:17 | XMS_ITS | Encounter Summary ---
Author Organization [place] Address [address] [place] [address]. [place] [address] Care Team Providers Care Surgical Attendant Name Role Phone Bianka Bourgeois PA-C Unavailable [phone] Ramon Reza PA-C Primary Care Provider [phone] Amarilys Hernandez Unavailable Unavailable Ramon Reza PA-C Unavailable [phone] Chelsea Alcantar RN Unavailable [phone] Ramon Reza PA-C Unavailable [phone] [facility]- Primary Care Provider No Ref-Primary, Physician Primary Care Provider Clinic - [facility] Primary Care Provider Reason for Visit * Reason Onset Date Comments MyChart Communication 01/31/2018 Adderall R efills Encounter Details Date Type Department Care Team (Late st Contact Info) Description 01/31/2018 MyC Medical Advice [facility] [address] [facility], [address] [place] [address] Ramon Reza PA-C [address] [place] [address] MyChart Communication (Adderall Refills) Social History Tobacco Use Types Packs/Day Years Used Date Smoking Tobacco: Former Cigarettes Q uit: 05/28/2017 Smokeless Tobacco: Never Alcohol Use Standard Drinks/Week Comments No 0 (1 standard drink = 0.6 oz pur e alcohol) Comments No Sex and Gender Information Value Date Recorded Sex Assigned at Not on file Legal 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 WOOD HEEL FLAP TRIMMER Gender Identity Not on file Sexual Orientation Not on file documented as of this encounter Plan of Treatment Not on file documented as of this encounter Visit Diagnoses Not on filedocumented in this encounter Additional Health Concerns Assessment Noted Time PHQ-9 Depression Total Score: 18 018 4:08 PM WOOD HEEL FLAP TRIMMER documented as of this encounter Care Teams Surgical Attendant Relationship Specialty Start Date End Date Ramon Reza PA-C PCP - General Physician Finishing Supervisor Plastic Sheets - Medical 04/28/14 09/23/18 Ramon Reza PA-C [address] [place] [address] PCP - Assigned PCP 05/03/14 08/27/18 [facility]- [address] [place] [address] PCP - General 09/24/18 10/23/18 No Ref-Primary, Physician PCP - General 10/24/18 09/25/[address] [id number] PCP - General Internal Medicine 09/26/19 Bianka Bourgeois PA-C Physician Finishing Supervisor Plastic Sheets 05/14/11 Amarilys [place], [facility] Clinic Wing Scorer 03/22/18 Chelsea Alcantar, RN Lead Wing Scorer 07/03/18 9 Ramon Reza PA-C [address] [place] [address] Assigned PCP 05/03/14 08/06/21 documented as of this encounter
--- OUTSIDE RECORDS SUMMARY | 2024-10-31 12:17 | XMS_ITS | Encounter Summary ---
Author Organization [place] Address [address] [place] [address] Care Team Providers Care Payroll Professional Name Role Phone Bianka Bourgeois PA-C Unavailable [phone] Ramon Reza PA-C Primary Care Provider [phone] Amarilys Hernandez Unavailable Unavailable Ramon Reza PA-C Unavailable [phone] Chelsea Alcantar RN Unavailable [phone] Ramon Reza PA-C Unavailable [phone] [facility]- Primary Care Provider No Ref-Primary, Physician Primary Care Provider [facility] Primary Care Provider Reason for Visit * Reason Onset Date Comments Pt. Information/instruction 03/15/2018 Test results Encounter Details Date Type Department Care Team (Late st Contact Info) Description 03/15/2018 MyC Medical Advice [facility] [address] [facility], [address] [place] [address] Ramon Reza PA-C [address] [place] [address] Pt. Information/instruct ion (Test results) [...] on file Legal 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 FARMWORKER ANIMAL Gender Identity Not on file Sexual Orientation [...] documented as of this encounter Care Teams Payroll Professional Relationship Specialty Start Date End Date Ramon Reza PA-C PCP - General Physician Country Manager - Medical 04/28/14 09/23/18 Ramon Reza PA-C [address] [place] [address] PCP - Assigned PCP 05/03/14 08/27/18 [facility]- [address] [place] [address] PCP - General 09/24/18 10/23/18 No Ref-Primary, Physician PCP - General 10/24/18 09/25/19 Clinic - [address] [address] PCP - General Internal Medicine 09/26/19 Bianka Bourgeois PA-C Physician Country Manager 05/14/11 Amarilys [place], [facility] Clinic Studio Engineer 03/22/18 Chelsea Alcantar, RN Lead Studio Engineer 07/03/18 9 Ramon Reza PA-C [address] [place] [address] Assigned PCP 05/03/14 08/06/21 documented as of this encounter
--- OUTSIDE RECORDS SUMMARY | 2024-10-31 12:17 | XMS_ITS | Encounter Summary ---
Author Organization [place] Address [address] [place] [address] Care Team Providers Care Motorcycle Assembler Name Role Phone Bianka Bourgeois PA-C Unavailable [phone] Ramon Reza PA-C Primary Care Provider [phone] Amarilys [place] LGSW Unavailable Unavailable Ramon Reza PA-C Unavailable [phone] Chelsea Alcantar RN Unavailable [phone] Ramon Reza PA-C Unavailable [phone] [facility]- Primary Care Provider No Ref-Primary, Physician Primary Care Provider Clinic - [facility] Primary Care Provider Encounter Details Date Type Department Care Team (Late st Contact Info) Description 02/21/2018 MyC Medical Advice [facility] [address] [facility], [address] [place] [address] [place] [address] [place] [address] Social History Tobacco Use Types [...] on file Legal 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 YARN TEXTURE MACHINE OPERATOR Gender Identity Not on file Sexual Orientation Not on file documented as of this encounter Plan of Treatment Not on file documented as of this encounter Visit Diagnoses Not on filedocumented in this encounter Additional Health Concerns Assessment Noted Time PHQ-9 Depression Total Score: 7 02/17/20 18 7:19 AM CDT documented as of this encounter Care Teams Motorcycle Assembler Relationship Specialty Start Date End Date Ramon Reza PA-C PCP - General Physician Waste Treatment Operator - Medical 04/28/14 09/23/18 Ramon Reza PA-C [address] [place] [address] PCP - Assigned PCP 05/03/14 08/27/18 [facility]- [address], [place] [address] PCP - General 09/24/18 10/23/18 No Ref-Primary, Physician PCP - General 10/24/18 09/25/[address] [address] PCP - General Internal Medicine 09/26/19 Bianka Bourgeois PA-C Physician Waste Treatment Operator 05/14/11 Amarilys [place], [facility] Clinic Sap Hana Architect 03/22/18 Chelsea Alcantar, RN Lead Sap Hana Architect 07/03/18 9 Ramon Reza PA-C [address] [address] [address] Assigned PCP 05/03/14 08/06/21 documented as of this encounter
--- OUTSIDE RECORDS SUMMARY | 2024-10-31 12:17 | XMS_ITS | Encounter Summary ---
Author Organization [place] Address [address] [place] [address] Care Team Providers Care Program Management Professional Name Role Phone Bianka Bourgeois PA-C Unavailable [phone] Ramon Reza PA-C Primary Care Provider [phone] Amarilys [place] LGSW Unavailable Unavailable Ramon Reza PA-C Unavailable [phone] Chelsea Alcantar RN Unavailable [phone] Ramon Reza PA-C Unavailable [phone] [facility]- Primary Care Provider No Ref-Primary, Physician Primary Care Provider [facility] Primary Care Provider Reason for Referral * Consultation - Closed Specialty Diagnoses / Procedures Referred By Mika langston Referred To Contact Diagnoses Persistent insomnia Ramon Reza PA-C Phone: tel: fax: [address] [address] Phone: tel: Referral ID Status Reason Start Date Expiration Date Visits Re quested Visits Authorized [id number] Closed 10/01/2017 10/01/2018 1 1 Question Answer Location: [facility] [phone] (Age 18 and up) Referral Urgency: Routine [...] Contact Info) Description 09/16/2017 MyC Medical Advice [address], [address] [place] [address] Ramon Reza PA-C [address] [place] [address] MyChart Communication (Recurrent Insomnia, ) Social History Tobacco Use Types Packs/Day Years Used Date Smoking Tobacco: Former Cigarettes Q uit: 05/28/2017 Smokeless Tobacco: Never Alcohol Use Standard Drinks/Week Comments No 0 (1 standard drink = 0.6 oz pur e alcohol) Comments No Sex and Gender Information Value Date Recorded Sex Assigned at Not on file Legal 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 SALON LEADER Gender Identity Not on file Sexual Orientation Not on file documented as of this encounter Plan of Treatment Scheduled Referrals Name Type Priority Associated Diagnoses Orde r Schedule SLEEP EVALUATION & MANAGEMENT REFERRAL - [facility] [phone] (Age 18 and up) Referral Routine Persistent insomnia 1 Occurrences starting 10/01/2017 until 10/01/2018 documented as of this encounter Visit Diagnoses Diagnosis Persistent insomnia- Primary Persistent disorder of initiating or maintaining sleep documented in this encounter Additional Health Concerns Assessment Noted Time PHQ-9 Depression Total Score: 18 018 4:08 PM SALON LEADER documented as of this encounter Care Teams Program Management Professional Relationship Specialty Start Date End Date Ramon Reza PA-C PCP - General Physician Medical Assistant Supervisor - Medical 04/28/14 09/23/18 Ramon Reza PA-C [address] [place] [address] PCP - Assigned PCP 05/03/14 08/27/18 [facility]- [address] [place] [address] PCP - General 09/24/18 10/23/18 No Ref-Primary, Physician PCP - General 10/24/18 09/25/[address] [id number] PCP - General Internal Medicine 09/26/19 Bianka Bourgeois PA-C Physician Medical Assistant Supervisor 05/14/11 Amarilys [place], [facility] Clinic Vice President For Philanthropy 03/22/18 Chelsea Alcantar, RN Lead Vice President For Philanthropy 07/03/18 9 Ramon Reza PA-C [address] [place] [address] Assigned PCP 05/03/14 08/06/21 documented as of this encounter
--- OUTSIDE RECORDS SUMMARY | 2024-10-31 12:17 | XMS_ITS | Encounter Summary ---
Author Organization [place] Address [address] [place] [address] Care Team Providers Care Weapons Mechanic Name Role Phone Bianka Bourgeois PA-C Unavailable [phone] Ramon Reza PA-C Primary Care Provider [phone] Amarilys Hernandez Unavailable Unavailable Ramon Reza PA-C Unavailable [phone] Chelsea Alcantar RN Unavailable [phone] Ramon Reza PA-C Unavailable [phone] [facility]- Primary Care Provider No Ref-Primary, Physician Primary Care Provider Clinic - [facility] Primary Care Provider Reason for Visit * Reason Onset Date Comments Results 02/15/2018 Encounter Details Date Type Department Care Team (Late st Contact Info) Description 02/15/2018 MyC Medical Advice [facility], [address] [place] [address] [place] [address] [place] [address] Results Social History Tobacco Use [...] on file Legal 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 METAL LATHER Gender Identity Not on file Sexual Orientation Not on file documented as of this encounter Miscellaneous Notes * Telephone Encounter - Aissatou Hernandez RN - 02/16/2018 8:53 AM CDT Images from the original note were not included. See CAD Bestt message below. Please advise. Aissatou Hernandez RN [...] documented as of this encounter Care Teams Weapons Mechanic Relationship Specialty Start Date End Date Ramon Reza PA-C PCP - General Physician Grants Officer - Medical 04/28/14 09/23/18 Ramon Reza PA-C [address] [place] [address] PCP - Assigned PCP 05/03/14 08/27/18 [facility]- [address] [place] [address] PCP - General 09/24/18 10/23/18 No Ref-Primary, Physician PCP - General 10/24/18 09/25/19 Clinic - [address] [address] PCP - General Internal Medicine 09/26/19 Bianka Bourgeois PA-C Physician Grants Officer 05/14/11 Amarilys Hernandez, [facility] Preventive Medicine Physician 03/22/18 Chelsea Alcantar, RN Lead Preventive Medicine Physician 07/03/18 9 Ramon Reza PA-C [address] [facility] [place] [address] Assigned PCP 05/03/14 08/06/21 documented as of this encounter
--- OUTSIDE RECORDS SUMMARY | 2024-10-31 12:17 | XMS_ITS | Clinical Summary ---
Author Organization [place] Address [address] [place] [address] Care Team Providers Care Pump Attendant Name Role Phone Bianka Bourgeois PA-C Unavailable [phone] [facility] [place][Note 2] Primary Care Provider Allergies Active Allergy Reactions [...] Neuropsych evaluation for ADD completed: No Last [facility] website verification: [email or web address] [email or web address]/ Lower urinary tract infectious disease 3 Overview [...] Answer Date Recorded PHQ-2 Score 2 02/15/2018 [place] Depression Scale Answer Date Recorded [place] Depression Score 1 11/27/2019 Last EPDS Self Harm Result Not on file 11/26 Adolescent Education Answer Date Record ed Getting School Help Needed Not on file 03/25 Comments No Sex and Gender Information Value Date Recorded Sex Assigned at Not on file Legal 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 BALL MILL MIXER Gender Identity Not on file Sexual Orientation [...] MD LAB - BLOOD ORDERABLES Final Result [facility] [address] [facility] (1st floor, no room number) [place] [address], [facility] * HIV Antigen Antibody Combo (05/21/2019) HIV Antigen Antibody Combo negative Blood specimen (specimen) us Patient Reported LAB - BLOOD ORDERABLES Final Re sult * Pap imaged thin layer screen with HPV - recommended age 30 - 65 years (select HPV order below) (02/15/2018 9:58 AM CDT) PAP NIL COPATH Copath Report Patient Name: LAKESHIA GEIGER MR#: [id number] Specimen #: [id number] Collected: 02/15/2018 Received: 02/18/2018 Reported: 02/19/2018 10:04 [...] BRIDGET Diop (ASCP) Processed and screened at [facility], Pending Sale To [facility] CLINICAL HISTORY: Currently not having periods, Intra-Uterine Device, A previous normal pap Date of Last Pap: 08/17/2015, Papanicolaou Test Limitations: Cervical cytology is a screening test with limited sensitivity; regular screening is critical for cancer prevention; Pap tests are primarily effective for the diagnosis/preventi on of squamous cell carcinoma, not adenocarcinomas or other cancers. TESTING LAB LOCATION: [facility] [place] [address] COLLECTION SITE: Client: [facility] Location: [facility] (R) COPATH Cytologic material (specimen) [...] and its performance characteristics determined by the [facility], Molecular Diagnostics Laboratory. It has not [...] 9:[address] [facility] Comment:[id number] 02/15/2018 9:54 AM CDT 02/15/2018 10:04 AM CDT us Marilu Gonzalez MD LAB - BLOOD ORDERABLES Final Result [facility] [address] [place] [address] from Last 3 Months or Most Recently Relevant to Health Maintenance Insurance [employer] [facility] OUT [employer] (deja mi) [place] [facility] [employer] [facility] [place] Advance Directives For more information, please contact: [phone] * Full Code (Latest Code Status on [...] 6:01 AM 12/25/2012 5:28 PM Care Teams Pump Attendant Relationship Specialty Start Date End Date [facility] - [address] [address] PCP - General Internal Medicine 09/26/19 Bianka Bourgeois PA-C Physician Heating Unit Mechanic 05/14/11
--- OUTSIDE RECORDS SUMMARY | 2024-10-31 12:17 | XMS_ITS | Encounter Summary ---
Author Organization [place] Address [address] [place] [address] Care Team Providers Care Durable Medical Equipment Technician Name Role Phone Bianka Bourgeois PA-C Unavailable [phone] Ramon Reza PA-C Primary Care Provider [phone] Amarilys Hernandez LGSW Unavailable Unavailable Ramon Reza PA-C Unavailable [phone] Chelsea Alcantar RN Unavailable [phone] Ramon Reza PA-C Unavailable [phone] [facility]- Primary Care Provider No Ref-Primary, Physician Primary Care Provider Clinic - [facility] Primary Care Provider Encounter Details Date Type Department Care Team (Late st Contact Info) Description 08/08/2017 MyC Medical Advice [facility] [address] [facility], [address] [place] [address] Lizette Lobo, RN Social History Tobacco Use Types Packs/Day Years Used Date Smoking Tobacco: Former Cigarettes Q uit: 05/28/2017 Smokeless Tobacco: Never Alcohol Use Standard Drinks/Week Comments No 0 (1 standard drink = 0.6 oz pur e alcohol) Comments No Sex and Gender Information Value Date Recorded Sex Assigned at Not on file Legal 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 THREAD DRESSER Gender Identity Not on file Sexual Orientation Not on file documented as of this encounter Plan of Treatment Not on file documented as of this encounter Visit Diagnoses Not on filedocumented in this encounter Additional Health Concerns Assessment Noted Time PHQ-9 Depression Total Score: 18 018 4:08 PM THREAD DRESSER documented as of this encounter Care Teams Durable Medical Equipment Technician Relationship Specialty Start Date End Date Ramon Reza PA-C PCP - General Physician Executive Cyber Leader - Medical 04/28/14 09/23/18 Ramon Reza PA-[place] [address] [place] [id number] PCP - Assigned PCP 05/03/14 08/27/18 [facility]- [address], [place] [address] PCP - General 09/24/18 10/23/18 No Ref-Primary, Physician PCP - General 10/24/18 09/25/[address] [id number] PCP - General Internal Medicine 09/26/19 Bianka Bourgeois PA-C Physician Executive Cyber Leader 05/14/11 Amarilys Hernandez, [facility] Clinic Manager [place] 03/22/18 Chelsea Alcantar, RN Lead Manager [place] 07/03/18 9 Ramon Reza PA-C [address] [place] [id number] Assigned PCP 05/03/14 08/06/21 documented as of this encounter
[2024-10-31 12:19] LABS: Anion Gap 10 mEq/L (7-15); Blood Urea Nitrogen* 13 mg/dL (5-24); Calcium* 9.1 mg/dL (8.4-10.6); Carbon Dioxide* 27 mmol/L (20-32); Creatinine* 0.7 mg/dL (0.5-1.5); Est. Creatinine Clearance* 87.49; Estimated Glomerular Filt Rate 111 ml/min; Glucose* 93 mg/dL (60-115)
[2024-10-31 12:33] VITALS: PULSE 75; O2SAT 100
[2024-10-31 12:33] LABS: D Dimer Quantitative* 0.04 ug/ml (0.00-0.50)
[2024-10-31 12:34] VITALS: PULSE 81; O2SAT 100
[2024-10-31 12:35] VITALS: PULSE 75; RESP 13; O2SAT 100
== END 2024-10-31 12:54 | disposition home or self-care (01) ==
PROVIDERS: Emergency Provider Emergency Medicine Emergency Medical Services
DX: R07.9 Chest pain, unspecified (principal)
CPT/HCPCS: 36415; 76604; 76705; 80048; 84484; 85025; 85379; 93005; 93308; 99284

== ENCOUNTER 2025-01-11 17:12 | Emergency (ER) | payer BC, SELFPAY ==
--- OUTSIDE RECORDS SUMMARY | 2025-01-11 17:14 | XMS_ITS | Encounter Summary ---
Author Organization [place] Address [address] [place] [address] Care Team Providers Care Labor Delivery Specialist Name Role Phone Bianka Bourgeois PA-C Unavailable [phone] Ramon Reza PA-C Primary Care Provider [phone] Amarilys Hernandez LGSW Unavailable Unavailable Ramon Reza PA-C Unavailable [phone] Chelsea Alcantar RN Unavailable [phone] Ramon Reza PA-C Unavailable [phone] [facility]- Primary Care Provider No Ref-Primary, Physician Primary Care Provider Clinic - [facility] Primary Care Provider Encounter Details Date Type Department Care Team (Late st Contact Info) Description 08/08/2017 MyC Medical Advice [facility] [address] [facility], [address] [place] [address] Lizette Lobo, RN Social History Tobacco Use Types Packs/Day Years Used Date Smoking Tobacco: Former Cigarettes Q uit: 05/28/2017 Smokeless Tobacco: Never Alcohol Use Standard Drinks/Week Comments No 0 (1 standard drink = 0.6 oz pur e alcohol) Comments No Sex and Gender Information Value Date Recorded Sex Assigned at Not on file Legal 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 SLIP COVER MAKER Gender Identity Not on file Sexual Orientation Not on file documented as of this encounter Plan of Treatment Not on file documented as of this encounter Visit Diagnoses Not on filedocumented in this encounter Additional Health Concerns Assessment Noted Time PHQ-9 Depression Total Score: 18 018 4:08 PM SLIP COVER MAKER documented as of this encounter Care Teams Labor Delivery Specialist Relationship Specialty Start Date End Date Ramon Reza PA-C PCP - General Physician Business Editor - Medical 04/28/14 09/23/18 Ramon Reza [place] [address] [place] [address] PCP - Assigned PCP 05/03/14 08/27/18 [facility]- [address], [place] [address] PCP - General 09/24/18 10/23/18 No Ref-Primary, Physician PCP - General 10/24/18 09/25/[address] [id number] PCP - General Internal Medicine 09/26/19 Bianka Bourgeois PA-C Physician Business Editor 05/14/11 Amarilys Hernandez, [facility] Clinic Supervisor Transcribing Operators 03/22/18 Chelsea Alcantar, RN Lead Supervisor Transcribing Operators 07/03/18 9 Ramon Reza [place] [address] [place] [address] Assigned PCP 05/03/14 08/06/21 documented as of this encounter
--- OUTSIDE RECORDS SUMMARY | 2025-01-11 17:14 | XMS_ITS | Encounter Summary ---
Author Organization [place] Address [address] [place] [address]. [place] [address] Care Team Providers Care Allergist/Immunologist Physician Name Role Phone Bianka Bourgeois PA-C Unavailable [phone] Ramon Reza PA-C Primary Care Provider [phone] Amarilys Hernandez Unavailable Unavailable Ramon Reza PA-C Unavailable [phone] Chelsea Alcantar RN Unavailable [phone] Ramon Reza PA-C Unavailable [phone] [facility]- Primary Care Provider No Ref-Primary, Physician Primary Care Provider Clinic - [facility] Primary Care Provider Reason for Visit * Reason Onset Date Comments MyChart Communication 01/31/2018 Adderall R efills Encounter Details Date Type Department Care Team (Late st Contact Info) Description 01/31/2018 MyC Medical Advice [facility] [address] [facility], [address] [place] [address] Ramon Reza PA-C [address] [place] [address] MyChart Communication (Adderall Refills) Social History Tobacco Use Types Packs/Day Years Used Date Smoking Tobacco: Former Cigarettes Q uit: 05/28/2017 Smokeless Tobacco: Never Alcohol Use Standard Drinks/Week Comments No 0 (1 standard drink = 0.6 oz pur e alcohol) Comments No Sex and Gender Information Value Date Recorded Sex Assigned at Not on file Legal 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 BATCH AND FURNACE MANAGER Gender Identity Not on file Sexual Orientation Not on file documented as of this encounter Plan of Treatment Not on file documented as of this encounter Visit Diagnoses Not on filedocumented in this encounter Additional Health Concerns Assessment Noted Time PHQ-9 Depression Total Score: 18 018 4:08 PM BATCH AND FURNACE MANAGER documented as of this encounter Care Teams Allergist/Immunologist Physician Relationship Specialty Start Date End Date Ramon Reza PA-C PCP - General Physician Advertising Agent - Medical 04/28/14 09/23/18 Ramon Reza PA-C [address] [place] [address] PCP - Assigned PCP 05/03/14 08/27/18 [facility]- [address] [place] [address] PCP - General 09/24/18 10/23/18 No Ref-Primary, Physician PCP - General 10/24/18 09/25/[address] [id number] PCP - General Internal Medicine 09/26/19 Bianka Bourgeois PA-C Physician Advertising Agent 05/14/11 Amarilys Hernandez, [facility] Clinic Cart Attendant 03/22/18 Chelsea Alcantar, RN Lead Cart Attendant 07/03/18 9 Ramon Reza PA-C [address] [place] [address] Assigned PCP 05/03/14 08/06/21 documented as of this encounter
--- OUTSIDE RECORDS SUMMARY | 2025-01-11 17:14 | XMS_ITS | Data Portability ---
Author Organization [facility] SENIOR INVESTMENT ANALYST, [id number] Address [address] [place] [address] Assessment Encounter Date Assessment Date Assessment LastModified [...] By Organization Details Last Modified Time 07/19/2020 [id number] Use topical Caladryl lotion or topical hydrocortisone [...] Last Pap Smear completed Bhumika Ballesteros (TERMED) [place] [facility] SENIOR INVESTMENT ANALYST 07/19/2020 12:14:04 Insert intrauterine device completed Not Available [facility] 02/02/2020 01:04:06 Remove intrauterine device completed Not Available [facility] 02/02/2020 01:04:06 dilation and curettage completed Not Available [facility] 02/02/2020 01:04:06 Imaging Results None recorded. Procedure Notes None recorded. Medical Equipment None Reported. Allergies Allergen ID Allergen Name Allergen Category Reaction Reaction Severity Criticality Documentation Date Start Date Code Code System Note Provider Name and Address Organization Details Recorded Time 654368 Substance with sulfonami de structure and antibacte rial mechanism of action (substanc e) medicatio n Not available Not available Not available 01/30/2020 30964 8003 SNOMED *Onse t: As Adult *Note : 10/20 - Tenisha ss, Swell ing Not Available [facility] 0 16:57:44 769686 Compazine medicatio n Not available Not available Not available 01/30/2020 00790 6 RxNorm *Onse t: As Adult *Note : 10/20 - Desto paresh Not Available [facility] 0 16:57:44 406973 prednison e medicatio n Not available Not available Not available 01/30/2020 8640 RxNorm *Onse t: As Adult *Note : 10/20 - Redne ss Not Available [facility] 0 16:57:44 Medications Name Sig Start Date [...] Date Recorded Body height Body temperature Systolic And Diastolic Provider Name and Address Organization Details Last Updated DateTime 07/19/2020 160.02 cm 97.3 [degF] 110/74 mm[Hg] Bhumika Ballesteros (TERMED) [facility] SENIOR INVESTMENT ANALYST 07/19/2020 12:18:32 Social History Question Answer Notes LastModified by [employer] Details LastModified Time Tobacco Smoking Status Never Smoker Tobacco *Status: Never *Note: 10/21/2019 - 11 Not Available [facility] 02/02/2020 13:19:06 What Is Your Level Of Caffeine Consumption? Occasional Caffeine *Status: Current Some Day *Qty: Rare Pop Information not available 02/02/2020 Sex: Unknown Functional Status Question Answer Note LastModified by [employer] Details LastModified Time What is your level of alcohol consumption? None Alcohol *Status: Never Information not available 02/02/2020 What is your exercise level? Occasional Active [...] SNOMED-CT Code Diagnosis ICD10 Code Diagnosis Note [id number] BRITTANY JANE MD [id number] [facility] [address] [facility] [place] [address] 07/19/2020 12:02:42 07/19/2020 13:19:57 Pruritic disorder 834041023 L29.9 breasts Health Concerns Section Related Observation LastModified by Organization Detai ls LastModified Time None Recorded Concern Status LastModified by Organization Details LastModified Time None Recorded Advance Directives Directive None Recorded Payers Insurance Date Sequence Insurance Name Policy Number Policy Ozuna Covered Member ID Ozuna Member ID Guarantor Name 07/02/2022 1 [place] [id number] Dannie Holly Sukhwinder [id number] Lakeshia Pretty Notes Date Note Type Note [...] or abnormal [place] [address] [facility],[address], [place], [address], [place] [facility] SENIOR INVESTMENT ANALYST 07/19/2020 18:39:46 OBGyn Episode No OBEpisode recorded.
--- OUTSIDE RECORDS SUMMARY | 2025-01-11 17:14 | XMS_ITS | Encounter Summary ---
Author Organization [place] Address [address] [place] [address]. [place] [address] Care Team Providers Care Retaining Room Cutter Name Role Phone Bianka Bourgeois PA-C Unavailable [phone] Ramon Reza PA-C Primary Care Provider [phone] Amarilys Hernandez LGSW Unavailable Unavailable Ramon Reza PA-C Unavailable [phone] Chelsea Alcantar RN Unavailable [phone] Ramon Reza PA-C Unavailable [phone] [facility]- Primary Care Provider No Ref-Primary, Physician Primary Care Provider Clinic - [facility] Primary Care Provider Reason for Visit * Reason Onset Date Comments Medication Refill 10/25/2017 L-Methylfolate (DEPLIN) 15 MG TABS Encounter Details Date Type Department Care Team (Late st Contact Info) Description 10/24/2017 Refill [place] [address] [facility], [address] [place] [address] Ramon Reza PA-C [address] [place] [address] Medication Refill ( L-Methylfolate (DEPLIN) [...] on file Legal 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 HARDWOOD FALLER Gender Identity Not on file Sexual Orientation [...] for review/approval because: Drug not on the [facility] refill protocol. Yoselin Ivory RN * Telephone [...] Depression Total Score: 18 018 4:08 PM HARDWOOD FALLER documented as of this encounter Care Teams Retaining Room Cutter Relationship Specialty Start Date End Date Ramon Reza PA-C PCP - General Physician Rotating Equipment Specialist - Medical 04/28/14 09/23/18 Ramon Reza PA-C [address] [address] [address] PCP - Assigned PCP 05/03/14 08/27/18 [facility]- [address], [place] [address] PCP - General 09/24/18 10/23/18 No Ref-Primary, Physician PCP - General 10/24/18 09/25/[address] [address] PCP - General Internal Medicine 09/26/19 Bianka Bourgeois PA-C Physician Rotating Equipment Specialist 05/14/11 Amarilys Hernandez, [facility] Clinic Jigger Operator 03/22/18 Chelsea Alcantar, RN Lead Jigger Operator 07/03/18 9 Ramon Reza PA-C [address] [address] [address] Assigned PCP 05/03/14 08/06/21 documented as of this encounter
--- OUTSIDE RECORDS SUMMARY | 2025-01-11 17:14 | XMS_ITS | Encounter Summary ---
Author Organization [place] Address [address] [place] [address] Care Team Providers Care Human Resources Administrator Name Role Phone Bianka Bourgeois PA-C Unavailable [phone] Ramon Reza PA-C Primary Care Provider [phone] Ramon Reza PA-C Unavailable [phone] Chelsea lAcantar RN Unavailable [phone] Ramon Reza PA-C Unavailable [phone] [facility]- Primary Care Provider No Ref-Primary, Physician Primary Care Provider [facility] Primary Care Provider Reason for Visit * Reason Onset Date Comments Refill Request 07/31/2018 eszopiclone (ANAHI ESTA) 3 MG tablet Referral 07/31/2018 Sleep study Encounter Details Date Type Department Care Team (Late st Contact Info) Description 07/31/2018 MyC Medical Advice [place] [address] [facility], [address] [place] [address] Ramon Reza PA-C [address] [place] [address] Refill Request (eszopiclone (LUNESTA) 3 [...] on file Legal 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 ROUGE SIFTER AND MILLER Gender Identity Not on file Sexual Orientation Not on file documented as of this encounter Miscellaneous Notes * Telephone Encounter - Galina Padilla - 07/31/2018 9:24 AM ROUGE SIFTER AND MILLER [facility] will notify patient when ready to be picked up. Leo Padilla Product Distribution Specialist 07/31/18 9:24 AM E SIFTER AND MILLER * Telephone Encounter - Ramon Reza PA-C - 07/31/2018 8:11 AM ROUGE SIFTER AND MILLER Sleep referral is in her chart from 10/01/17. I will refill her med and see her Sunday. Ramon E SIFTER AND MILLER * Telephone Encounter - Yoselin Ivory RN - 07/31/2018 7:45 AM CST Lunesta 3mg Last Written Prescription Date: 06/21/2018 Last Fill Quantity: 30, # refills: 0 Last Office Visit: 05/31/2018 Future Office visit: Next 5 appointments (look out 90 days) Aug 05, 2018 10:00 AM ROUGE SIFTER AND MILLER Matt Koehler with Ramon Reza PA-C [facility] [address] [place] [address], [address] [facility] [address] Routing refill request to provider for review/approval because: Drug not on the [facility], [facility] or [facility] refill protocol or controlled substance. Yoselin Ivory RN E SIFTER AND MILLER documented in this encounter Plan of Treatment Not on file documented as of this encounter Visit Diagnoses Diagnosis Other insomnia documented in this encounter Additional Health Concerns Assessment Noted Time PHQ-9 Depression Total Score: 7 02/17/20 18 7:19 AM CDT documented as of this encounter Care Teams Human Resources Administrator Relationship Specialty Start Date End Date Ramon Reza PA-C PCP - General Physician Towboat Captain - Medical 04/28/14 09/23/18 Ramon Reza PA-C [address] [address] [address] PCP - Assigned PCP 05/03/14 08/27/18 [facility]- [address], [place] [address] PCP - General 09/24/18 10/23/18 No Ref-Primary, Physician PCP - General 10/24/18 09/25/[address] [address] PCP - General Internal Medicine 09/26/19 Bianka Bourgeois PA-C Physician Towboat Captain 05/14/11 Chelsea Alcantar, RN Lead Marble Installer Supervisor 07/03/18 9 Ramon Reza PA-C [address] [address] [address] Assigned PCP 05/03/14 08/06/21 documented as of this encounter
--- OUTSIDE RECORDS SUMMARY | 2025-01-11 17:14 | XMS_ITS | Encounter Summary ---
Author Organization [place] Address [address] [place] [address] Care Team Providers Care Semiconductor Wafers Marker Name Role Phone Bianka Bourgeois PA-C Unavailable [phone] Ramon Reza PA-C Primary Care Provider [phone] Amarilys Hernandez Unavailable Unavailable Ramon Reza PA-C Unavailable [phone] Chelsea Alcantar RN Unavailable [phone] Ramon Reza PA-C Unavailable [phone] [facility]- Primary Care Provider No Ref-Primary, Physician Primary Care Provider [facility] Primary Care Provider Reason for Visit * Reason Onset Date Comments Pt. Information/instruction 03/15/2018 test results Encounter Details Date Type Department Care Team (Late st Contact Info) Description 03/15/2018 MyC Medical Advice [facility] [address] [facility], [address] [place] [address] Ramon Reza PA-C [address] [place] [address] Pt. 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 HOME CONNECT LPN Gender Identity Not on file Sexual Orientation Not on file documented as of this encounter Plan of Treatment Not on file documented as of this encounter Visit Diagnoses Not on filedocumented in this encounter Additional Health Concerns Assessment Noted Time PHQ-9 Depression Total Score: 7 02/17/20 18 7:19 AM CDT documented as of this encounter Care Teams Semiconductor Wafers Marker Relationship Specialty Start Date End Date Ramon Reza PA-C PCP - General Physician Frame Carver Spindle - Medical 04/28/14 09/23/18 Ramon Reza PA-C [address] [place] [address] PCP - Assigned PCP 05/03/14 08/27/18 [facility]- [address] [place] [address] PCP - General 09/24/18 10/23/18 No Ref-Primary, Physician PCP - General 10/24/18 09/25/[address] [address] PCP - General Internal Medicine 09/26/19 Bianka Bourgeois PA-C Physician Frame Carver Spindle 05/14/11 Amarilys Hernandez, [facility] Clinic Guest Relations Receptionist 03/22/18 Chelsea Alcantar, RN Lead Guest Relations Receptionist 07/03/18 9 Ramon Reza PA-C [address] [place] [address] Assigned PCP 05/03/14 08/06/21 documented as of this encounter
--- OUTSIDE RECORDS SUMMARY | 2025-01-11 17:14 | XMS_ITS | Encounter Summary ---
Author Organization [place] Address [address] [place] [address]. [place] [address] Care Team Providers Care Hospital Admissions Officer Name Role Phone Bianka Bourgeois PA-C Unavailable [phone] Ramon Reza PA-C Primary Care Provider [phone] Ramon Reza PA-C Unavailable [phone] Chelsea Alcantar RN Unavailable [phone] Ramon Reza PA-C Unavailable [phone] [facility]- Primary Care Provider No Ref-Primary, Physician Primary Care Provider [facility] Primary Care Provider Reason for Visit * Reason Onset Date Comments Refill Request 06/20/2018 Adderall 10mg Encounter Details Date Type Department Care Team (Late st Contact Info) Description 06/20/2018 MyC Medical Advice [facility] [address] [facility], [address] [place] [address] Ramon Reza PA-C [address] [place] [address] Refill Request (Adderall 10mg) Social [...] on file Legal 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 I told her they were not ready and she left. CAL OFFICE REPRESENTATIVE * Telephone Encounter - Nell Gonzalez MD - 06/21/2018 8:04 AM MEDICAL OFFICE REPRESENTATIVE Please help with this patient. She is [...] calling her medical knowledge up for debate. CAL OFFICE REPRESENTATIVE * Telephone Encounter - Nell Gonzalez MD - 06/20/2018 1:04 PM MEDICAL OFFICE REPRESENTATIVE appt due CAL OFFICE REPRESENTATIVE * Telephone Encounter - Nell Gonzalez MD - 06/20/2018 1:03 PM MEDICAL OFFICE REPRESENTATIVE Last time this patient was seen, she [...] for all our patients, not just her CAL OFFICE REPRESENTATIVE * Telephone Encounter - Yoselin Iovry RN - 06/20/2018 10:01 AM CST Images from the original note were not included. Adderall 10mg Last Written Prescription Date: 04/18/2018 Last Fill Quantity: 30, # refills: 0 Last Office Visit: 05/31/2018 Future Office visit: Routing refill request to provider for review/approval because: Drug not on the [facility], [facility] or [facility] refill protocol or controlled substance. GLASS TECHNICIAN checked 06/20/2018: CAL OFFICE REPRESENTATIVE documented in this encounter Plan of Treatment Not on file documented as of this encounter Visit Diagnoses Diagnosis Attention deficit hyperactivity disorder (ADHD), other type documented in this encounter Additional Health Concerns Assessment Noted Time PHQ-9 Depression Total Score: 7 02/17/20 18 7:19 AM CDT documented as of this encounter Care Teams Hospital Admissions Officer Relationship Specialty Start Date End Date Ramon Reza PA-C PCP - General Physician Vice Admiral - Medical 04/28/14 09/23/18 Ramon Reza PA-C [address] [address] PCP - Assigned PCP 05/03/14 08/27/18 [facility]- [address], [place] [address] PCP - General 09/24/18 10/23/18 No Ref-Primary, Physician PCP - General 10/24/18 09/25/[address] 4928[address] PCP - General Internal Medicine 09/26/19 Bianka Bourgeois PA-C Physician Vice Admiral 05/14/11 Chelsea Alcantar RN Lead Burring Wheel Operator 07/03/18 9 Ramon Reza PA-C [address] [address] Assigned PCP 05/03/14 08/06/21 documented as of this encounter
--- OUTSIDE RECORDS SUMMARY | 2025-01-11 17:14 | XMS_ITS | Encounter Summary ---
Author Organization [place] Address [address] [place] [address] Care Team Providers Care Health Outreach Worker Name Role Phone Bianka Bourgeois PA-C Unavailable [phone] Ramon Reza PA-C Primary Care Provider [phone] Amarilys Hernandez Unavailable Unavailable Ramon Reza PA-C Unavailable [phone] Chelsea Alcantar RN Unavailable [phone] Ramon Reza PA-C Unavailable [phone] [facility]- Primary Care Provider No Ref-Primary, Physician Primary Care Provider Clinic - [facility] Primary Care Provider Reason for Visit * Reason Onset Date Comments Results 02/15/2018 Encounter Details Date Type Department Care Team (Late st Contact Info) Description 02/15/2018 MyC Medical Advice [facility], [address] [place] [address] [place] [address] [place] [address] Results Social History Tobacco Use [...] on file 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 See discoapit message below. Please advise. Aissatou Hernandez RN [...] documented as of this encounter Care Teams Health Outreach Worker Relationship Specialty Start Date End Date Ramon Reza PA-C PCP - General Physician Spring Coiling Machine Setter - Medical 04/28/14 09/23/18 Ramon Reza PA-C [address] [place] [address] PCP - Assigned PCP 05/03/14 08/27/18 [facility]- [address] [place] [address] PCP - General 09/24/18 10/23/18 No Ref-Primary, Physician PCP - General 10/24/18 09/25/19 Clinic - [address] [address] PCP - General Internal Medicine 09/26/19 Bianka Bourgeois PA-C Physician Spring Coiling Machine Setter 05/14/11 Amarilys Hernandez, [facility] Clinic Script Developer 03/22/18 Chelsea Alcantar, RN Lead Script Developer 07/03/18 9 Ramon Reza PA-C [address] [facility] [address] Assigned PCP 05/03/14 08/06/21 documented as of this encounter
--- OUTSIDE RECORDS SUMMARY | 2025-01-11 17:14 | XMS_ITS | Encounter Summary ---
Author Organization [place] Address [address] [place] [address] Care Team Providers Care Car Builder Name Role Phone Bianka Bourgeois PA-C Unavailable [phone] Ramon Reza PA-C Primary Care Provider [phone] Amarilys Hernandez Unavailable Unavailable Ramon Reza PA-C Unavailable [phone] Chelsea Alcantar RN Unavailable [phone] Ramon Reza PA-C Unavailable [phone] [facility]- Primary Care Provider No Ref-Primary, Physician Primary Care Provider [facility] Primary Care Provider Reason for Visit * Reason Onset Date Comments Results 02/22/2018 HPV Encounter Details Date Type Department Care Team (Late st Contact Info) Description 02/22/2018 MyC Medical Advice [facility] [address] 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 Gender Identity Not on file Sexual Orientation Not on file documented as of this encounter Plan of Treatment Not on file documented as of this encounter Visit Diagnoses Not on filedocumented in this encounter Additional Health Concerns Assessment Noted Time PHQ-9 Depression Total Score: 7 02/17/20 18 7:19 AM CDT documented as of this encounter Care Teams Car Builder Relationship Specialty Start Date End Date Ramon Reza PA-C PCP - General Physician Public School Teacher - Medical 04/28/14 09/23/18 Ramon Reza PA-C [address] [place] [address] PCP - Assigned PCP 05/03/14 08/27/18 [facility]- [address] [place] [address] PCP - General 09/24/18 10/23/18 No Ref-Primary, Physician PCP - General 10/24/18 09/25/19 [facility] - [address] [address] PCP - General Internal Medicine 09/26/19 Bianka Bourgeois PA-C Physician Public School Teacher 05/14/11 Amarilys Hernandez, [facility] Clinic Contract Admin 03/22/18 Chelsea Alcantar RN Lead Contract Admin 07/03/18 9 Ramon Reza PA-C [address] [place] [address] Assigned PCP 05/03/14 08/06/21 documented as of this encounter
--- OUTSIDE RECORDS SUMMARY | 2025-01-11 17:14 | XMS_ITS | Encounter Summary ---
Author Organization [place] Address [address] [place] [address]. [place] [address] Care Team Providers Care Magnaflux Operator Name Role Phone Bianka Bourgeois PA-C Unavailable [phone] Ramon Reza PA-C Primary Care Provider [phone] Amarilys Hernandez Unavailable Unavailable Ramon Reza PA-C Unavailable [phone] Chelsea Alcantar RN Unavailable [phone] Ramon Reza PA-C Unavailable [phone] [facility]- Primary Care Provider No Ref-Primary, Physician Primary Care Provider 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 Gender Identity Not on file Sexual Orientation Not on file documented as of this encounter Plan of Treatment Not on file documented as of this encounter Visit Diagnoses Not on filedocumented in this encounter Additional Health Concerns Assessment Noted Time PHQ-9 Depression Total Score: 7 02/17/20 18 7:19 AM CDT documented as of this encounter Care Teams Magnaflux Operator Relationship Specialty Start Date End Date Ramon Reza PA-C PCP - General Physician Final Assembler Boat - Medical 04/28/14 09/23/18 Ramon Reza PA-C [address] [place] [address] PCP - Assigned PCP 05/03/14 08/27/18 [facility]- [address] [place] [address] PCP - General 09/24/18 10/23/18 No Ref-Primary, Physician PCP - General 10/24/18 09/25/[address] [address] PCP - General Internal Medicine 09/26/19 Bianka Bourgeois PA-C Physician Final Assembler Boat 05/14/11 Amarilys Hernandez, [facility] Clinic Inventory Control Manager 03/22/18 Chelsea Alcantar, RN Lead Inventory Control Manager 07/03/18 9 Ramon Reza PA-C [address] [place] [address] Assigned PCP 05/03/14 08/06/21 documented as of this encounter
--- OUTSIDE RECORDS SUMMARY | 2025-01-11 17:14 | XMS_ITS | Encounter Summary ---
Author Organization [place] Address [address] [place] [address] Care Team Providers Care Medical Liaison Name Role Phone Bianka Bourgeois PA-C Unavailable [phone] Ramon Reza PA-C Primary Care Provider [phone] Amarilys Hernandez Unavailable Unavailable Ramon Reza PA-C Unavailable [phone] Chelsea Alcantar RN Unavailable [phone] Ramon Reza PA-C Unavailable [phone] [facility]- Primary Care Provider No Ref-Primary, Physician Primary Care Provider Clinic - 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 Gender Identity Not on file Sexual [...] documented as of this encounter Care Teams Medical Liaison Relationship Specialty Start Date End Date Ramon Reza PA-C PCP - General Physician Batch Records Clerk - Medical 04/28/14 09/23/18 Ramon Reza PA-C [address] [place] [address] PCP - Assigned PCP 05/03/14 08/27/18 [facility]- [address], [place] [address] PCP - General 09/24/18 10/23/18 No Ref-Primary, Physician PCP - General 10/24/18 09/25/[address] [address] PCP - General Internal Medicine 09/26/19 Bianka Bourgeois PA-C Physician Batch Records Clerk 05/14/11 Amarilys Hernandez, [facility] Clinic Hydro Generation Supervisor 03/22/18 Chelsea Alcantar, RN Lead Hydro Generation Supervisor 07/03/18 9 Ramon eRza PA-C [address] [place] [address] Assigned PCP 05/03/14 08/06/21 documented as of this encounter
--- OUTSIDE RECORDS SUMMARY | 2025-01-11 17:14 | XMS_ITS | Encounter Summary ---
Author Organization [place] Address [address] [place] [address] Care Team Providers Care Motor Transport Inspector Name Role Phone Bianka Bourgeois PA-C Unavailable [phone] Ramon Reza PA-C Primary Care Provider [phone] Ramon Reza PA-C Unavailable [phone] Chelsea Alcantar RN Unavailable [phone] Ramon Reza PA-C Unavailable [phone] [facility]- Primary Care Provider No Ref-Primary, Physician Primary Care Provider [facility] Primary Care Provider Encounter Details Date Type Department Care Team (Late st Contact Info) Description 08/02/2018 MyC Medical Advice [facility] Care Coordination [facility] [address] [place] [address] Chelsea Alcantar, RN Social History Tobacco Use [...] on file Legal 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 Gender Identity Not on file Sexual Orientation Not on file documented as of this encounter Plan of Treatment Not on file documented as of this encounter Visit Diagnoses Not on filedocumented in this encounter Additional Health Concerns Assessment Noted Time PHQ-9 Depression Total Score: 7 02/17/20 18 7:19 AM CDT documented as of this encounter Care Teams Motor Transport Inspector Relationship Specialty Start Date End Date Ramon Reza PA-C PCP - General Physician Doctor Of Naturopathic Medicine - Medical 04/28/14 09/23/18 Ramon Reza PA-C [address] [address] [address] PCP - Assigned PCP 05/03/14 08/27/18 [facility]- [address] [place] [address] PCP - General 09/24/18 10/23/18 No Ref-Primary, Physician PCP - General 10/24/18 09/25/19 [facility] - [address] [address] PCP - General Internal Medicine 09/26/19 Bianka Bourgeois PA-C Physician Doctor Of Naturopathic Medicine 05/14/11 Chelsea Alcantar, RN Lead Developer Automatic 07/03/18 9 Ramon Reza PA-C [address] [address] Assigned PCP 05/03/14 08/06/21 documented as of this encounter
--- OUTSIDE RECORDS SUMMARY | 2025-01-11 17:14 | XMS_ITS | Encounter Summary ---
Author Organization [place] Address [address] [place] [address] Care Team Providers Care Bottoming Room Inspector Name Role Phone Bianka Bourgeois PA-C Unavailable [phone] Ramon Reza PA-C Primary Care Provider [phone] Amarilys Hernandez LGSW Unavailable Unavailable Ramon Reza PA-C Unavailable [phone] Chelsea Alcantar RN Unavailable [phone] Ramon Reza PA-C Unavailable [phone] 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- [address], [place] [address] PCP - General 09/24/18 10/23/18 No Ref-Primary, Physician PCP - General 10/24/18 09/25/[address] [address] PCP - General Internal Medicine 09/26/19 Bianka Bourgeois PA-C Physician Diagram Clerk 05/14/11 Amarilys Hernandez, [facility] Clinic Airline Transport Pilot 03/22/18 Chelsea Alcantar, RN Lead Airline Transport Pilot 07/03/18 9 Ramon Reza PA-C [address] [address] [address] Assigned PCP 05/03/14 08/06/21 documented as of this encounter
--- OUTSIDE RECORDS SUMMARY | 2025-01-11 17:14 | XMS_ITS | Encounter Summary ---
Author Organization [place] Address [address] [place] [address] Care Team Providers Care Fisheries Enforcement Officer Name Role Phone Bianka Bourgeois PA-C Unavailable [phone] Ramon Reza PA-C Primary Care Provider [phone] Amarilys Hernandez Unavailable Unavailable Ramon Reza PA-C Unavailable [phone] Chelsea Alcantar RN Unavailable [phone] Ramon Reza PA-C Unavailable [phone] [facility]- Primary Care Provider No Ref-Primary, Physician Primary Care Provider [facility] Primary Care Provider Reason for Visit * Reason Onset Date Comments Pt. Information/instruction 03/15/2018 Test results Encounter Details Date Type Department Care Team (Late st Contact Info) Description 03/15/2018 MyC Medical Advice [facility] [address] [facility], [address] [place] [address] Ramon Reza PA-C [address] [place] [address] Pt. 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 Gender Identity Not on file Sexual Orientation [...] documented as of this encounter Care Teams Fisheries Enforcement Officer Relationship Specialty Start Date End Date Ramon Reza PA-C PCP - General Physician Inspector Eyeglass Frames - Medical 04/28/14 09/23/18 Ramon Reza PA-C [address] [place] [address] PCP - Assigned PCP 05/03/14 08/27/18 [facility]- [address] [place] [address] PCP - General 09/24/18 10/23/18 No Ref-Primary, Physician PCP - General 10/24/18 09/25/19 Clinic - [address] [address] PCP - General Internal Medicine 09/26/19 Bianka Bourgeois PA-C Physician Inspector Eyeglass Frames 05/14/11 Amarilys Hernandez, [facility] Clinic Hospitalist Nocturnist Physician 03/22/18 Chelsea Alcantar, RN Lead Hospitalist Nocturnist Physician 07/03/18 9 Ramon Reza PA-C [address] [place] [address] Assigned PCP 05/03/14 08/06/21 documented as of this encounter
--- OUTSIDE RECORDS SUMMARY | 2025-01-11 17:14 | XMS_ITS | Encounter Summary ---
Author Organization [place] Address [address] [place] [address] Care Team Providers Care Hair Preparer Name Role Phone Bianka Bourgeois PA-C Unavailable [phone] Ramon Reza PA-C Primary Care Provider [phone] Ramon RezaC Unavailable [phone] Chelsea Alcantar RN Unavailable [phone] Ramon Reza PA-C Unavailable [phone] [facility]- Primary Care Provider No Ref-Primary, Physician Primary Care Provider Clinic - [facility] Primary Care Provider Encounter Details Date Type Department Care Team (Late st Contact Info) Description 08/02/2018 MyC Medical Advice [facility] [address] [place] [address], [address] [place] [address] Nley Sigala MA Social History Tobacco Use Types [...] on file 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 Gender Identity Not on file Sexual Orientation Not on file documented as of this encounter Plan of Treatment Not on file documented as of this encounter Visit Diagnoses Not on filedocumented in this encounter Additional Health Concerns Assessment Noted Time PHQ-9 Depression Total Score: 7 02/17/20 18 7:19 AM CDT documented as of this encounter Care Teams Hair Preparer Relationship Specialty Start Date End Date Ramon Reza PA-C PCP - General Physician Property Claims Manager - Medical 04/28/14 09/23/18 Ramon Reza PA-C [address] [address] PCP - Assigned PCP 05/03/14 08/27/18 [facility]- [address] [place] [address] PCP - General 09/24/18 10/23/18 No Ref-Primary, Physician PCP - General 10/24/18 09/25/[address] [id number] PCP - General Internal Medicine 09/26/19 Bianka Bourgeois PA-C Physician Property Claims Manager 05/14/11 Chelsea Alcantar, RN Lead Post Splitter 07/03/18 9 Ramon Reza PA-C [address] [address] [address] Assigned PCP 05/03/14 08/06/21 documented as of this encounter
--- OUTSIDE RECORDS SUMMARY | 2025-01-11 17:15 | XMS_ITS | Data Portability ---
Author Organization [place] [facility] Address [address] [address] Care Team Providers Care Medical Terminologist Name Role Phone AUSTIN GANNON Referring Provider Assessment Encounter Date Assessment Date Assessment LastModified [...] working on stress reduction with yoga and jui jitsu. In addition, three blood pressure readings were [...] she would report to urgent care in [place]. History today was obtained from the patient. [...] By Organization Details Last Modified Time 01/25/2021 [id number] oral appliance preparation* Not available 01/25/2021 21:36:35 Self Care for TMD Not availabl e 01/25/2021 21:36:35 Reason for Referral Physical Therapist Referral for Myofascial pain Referring Physician: Karen Still, Pain Management, Encounter Date: 01/25/2021 Results Created Date Observation Date Name Description Value Unit Range Abnormal Flag Note LastModifiedBy Organization Detail LastModifiedTime 01/26/2001/25/2021 oral appli ance prepa ratio n* Type of appliance mandib ular stabil izatio n applia nce Not Available [place] [address], [place], [address], 01/25/2021 21:34:34 Result Notes None recorded. 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 Medical Equipment None Reported. Allergies Allergen ID Allergen Name Allergen Category Reaction Reaction Severity Criticality Documentation Date Start Date Code Code System Note Provider Name and Address Organization Details Recorded Time 62691 Compazine medicatio n Not available Not available Not available 01/25/2021 37300 6 RxNorm Mechelle gross [facility] 14:11:51 20227 Flonase medicatio n Not available Not available Not available 01/25/2021 37149 RxNorm Mechelle gross [facility] 14:12:17 Medications [...] Not Available Not Available Vitals Date Recorded Systolic And Diastolic Systolic And Diastolic Provider Name and Address Organization Details Last Updated DateTime 01/25/2021 158/121 mm[Hg] 179/133 mm[Hg] Karen Still [facility] 01/25/2021 21:11:27 Date Recorded Body temperature Heart rate Systolic And Diastolic Provider Name and Address Organization Details Last Updated DateTime 01/25/2021 97.7 [degF] 76 /min 169/125 mm[Hg] Mechelle Li [facility] 01/25/2021 14:11:10 Social History Question Answer Notes LastModified by Organizat ion Details LastModified Time Tobacco Smoking Status Former Smoker Mechelle gross [facility] 01/25/2021 15:11:51 What Is Your Level Of Caffeine Consumption? Occasional Information not available 01/25/2021 What Type Of Diet Are You Following? REGULAR Information not available 01/25/2021 What Is The Highest Grade Or Level Of School You Have Completed Or The Highest Degree You Have Received? [id number] Information not available 01/25/2021 What Is Your Relationship Status? Information not available 01/25/2021 Sex: Unknown Functional Status Question Answer Note LastModified by Organizat ion Details LastModified Time What is your level of alcohol consumption? Occasional Information not available 01/25/2021 Mental Status Question Answer Note LastModified by Organization D etails LastModified Time Do you feel stressed (tense, restless, nervous, or anxious, or unable to sleep at night)? [id number] Information not available 01/25/2021 Family History Relationship Description Onset Age of this Age Resolved Age Notes LastModified by Organization Details LastModified Time Mother Depressive disorder Not available 2020 15:10:10 Mother Heart disease Not available 2020 15:10:36 Mother Migraine Not available 01/25/2021 15:10:57 Father Heart disease Not available 2020 15:10:36 Medical History Condition Response Anxiety Disorder Y Muscle, Joint, or Bone Problems Y Chronic fatigue syndrome Y Migraines Y Depression Y Headaches Y Gynecological HistoryNo gynecological history recorded. 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 Neck pain 40261366 M54.2 Malocclusion of teeth 47 431711 M26.4 Health Concerns Section Related Observation LastModified by Organization Detai ls LastModified Time None Recorded Concern Status LastModified by Organization Details LastModified Time None Recorded Advance Directives Directive None Recorded Payers Insurance Date Sequence Insurance Name Policy Number Policy Ozuna Covered Member ID Ozuna Member ID Guarantor Name 01/25/2021 1 [facility] Dannie Geiger [id number] Lakeshia Sukhwinder 01/25/2021 1 [facility] (MEDICAID REPLACEMENT - HMO) [id number] Lakeshia Geiger [id number] Lakeshia Pretty Notes Date Note Type Note [...] a possible temporomandibular disorder. These symptoms are chronic and began with significant stress and tension. Previous consultation include evaluation with her primary care provider. Symptoms are bilateral and aggravated by clenching and grinding of their teeth. The patient is aware of teeth clenching and grinding. Lakeshia reports [...] and three other children. MICKI [facility] - [facility] 01/25/2021 21:36:38 OBGyn Episode No OBEpisode recorded.
--- OUTSIDE RECORDS SUMMARY | 2025-01-11 17:15 | XMS_ITS | Encounter Summary ---
Author Organization [facility] Address [address] [place] [address] Care Team Providers Care Brake Repairer Name Role Phone Bianka Bourgeois PA-C Unavailable [phone] Ramon Reza PA-C Primary Care Provider [phone] Amarilys Hernandez LGSW Unavailable Unavailable Ramon Reza PA-C Unavailable [phone] Chelsea Alcantar RN Unavailable [phone] Ramon Reza PA-C Unavailable [phone] [facility]- Primary Care Provider No Ref-Primary, Physician Primary Care Provider [facility] Primary Care Provider Reason for Referral * Consultation - Closed Specialty Diagnoses / Procedures Referred By Mika langston Referred To Contact Diagnoses Persistent insomnia Ramon Reza PA-C Phone: tel: fax: [address] [address] Phone: tel: Referral ID Status Reason Start Date Expiration Date Visits Re quested Visits Authorized [id number] Closed 10/01/2017 10/01/2018 1 1 [place] [phone] (Age 18 and up) Referral Urgency: Routine [...] Contact Info) Description 09/16/2017 MyC Medical Advice [address], [address] [place] [address] Ramon Reza PA-C [address] [place] [address] MyChart Communication (Recurrent Insomnia, ) Social History Tobacco Use Types Packs/Day Years Used Date Smoking Tobacco: Former Cigarettes Q uit: 05/28/2017 Smokeless Tobacco: Never Alcohol Use Standard Drinks/Week Comments No 0 (1 standard drink = 0.6 oz pur e alcohol) Comments No Sex and Gender Information Value Date Recorded Sex Assigned at Not on file Legal 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 RUBBER LINER Gender Identity Not on file Sexual Orientation Not on file documented as of this encounter Plan of Treatment Scheduled Referrals Name Type Priority Associated Diagnoses Orde r Schedule SLEEP EVALUATION & MANAGEMENT REFERRAL - [facility] [phone] (Age 18 and up) Referral Routine Persistent insomnia 1 Occurrences starting 10/01/2017 until 10/01/2018 documented as of this encounter Visit Diagnoses Diagnosis Persistent insomnia- Primary Persistent disorder of initiating or maintaining sleep documented in this encounter Additional Health Concerns Assessment Noted Time PHQ-9 Depression Total Score: 18 018 4:08 PM RUBBER LINER documented as of this encounter Care Teams Brake Repairer Relationship Specialty Start Date End Date Ramon Reza PA-C PCP - General Physician Component Design Engineer - Medical 04/28/14 09/23/18 Ramon Reza PA-C [address] [place] [address] PCP - Assigned PCP 05/03/14 08/27/18 [facility]- [address] [place] [address] PCP - General 09/24/18 10/23/18 No Ref-Primary, Physician PCP - General 10/24/18 09/25/[address] [id number] PCP - General Internal Medicine 09/26/19 Bainka Bourgeois PA-C Physician Component Design Engineer 05/14/11 Amarilys Hernandez, [facility] Electrical And Instrumentation Manager 03/22/18 Chelsea Alcantar, RN Lead Electrical And Instrumentation Manager 07/03/18 9 Ramon Reza PA-C [address] [place] [address] Assigned PCP 05/03/14 08/06/21 documented as of this encounter
--- OUTSIDE RECORDS SUMMARY | 2025-01-11 17:15 | XMS_ITS | Encounter Summary ---
Author Organization [place] Address [address] [place] [address] Care Team Providers Care Caramel Maker Name Role Phone Bianka Bourgeois PA-C Unavailable [phone] Ramon Reza PA-C Primary Care Provider [phone] Amarilys Hernandez LGSW Unavailable Unavailable Ramon Reza PA-C Unavailable [phone] Chelsea Alcantar RN Unavailable [phone] Ramon Reza PA-C Unavailable [phone] [facility]- Primary Care Provider No Ref-Primary, Physician Primary Care Provider Clinic - [facility] Primary Care Provider Encounter Details Date Type Department Care Team (Late st Contact Info) Description 10/31/2017 MyC Medical Advice [facility] [address] [facility], [address] [place] [address] Nely Sigala MA Social History Tobacco Use Types Packs/Day Years Used Date Smoking Tobacco: Former Cigarettes Q uit: 05/28/2017 Smokeless Tobacco: Never Alcohol Use Standard Drinks/Week Comments No 0 (1 standard drink = 0.6 oz pur e alcohol) Comments No Sex and Gender Information Value Date Recorded Sex Assigned at Not on file Legal 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 AUTO PARKER Gender Identity Not on file Sexual Orientation Not on file documented as of this encounter Plan of Treatment Not on file documented as of this encounter Visit Diagnoses Not on filedocumented in this encounter Additional Health Concerns Assessment Noted Time PHQ-9 Depression Total Score: 18 018 4:08 PM AUTO PARKER documented as of this encounter Care Teams Caramel Maker Relationship Specialty Start Date End Date Ramon Reza PA-C PCP - General Physician Reservoir Caretaker - Medical 04/28/14 09/23/18 Ramon Reza PA-C [address] [place] [address] PCP - Assigned PCP 05/03/14 08/27/18 [facility]- [address], [place] [address] PCP - General 09/24/18 10/23/18 No Ref-Primary, Physician PCP - General 10/24/18 09/25/[address] [id number] PCP - General Internal Medicine 09/26/19 Bianka Bourgeois PA-C Physician Reservoir Caretaker 05/14/11 Amarilys Hernandez, [facility] Measurement Advisor 03/22/18 Chelsea Alcantar, RN Lead Measurement Advisor 07/03/18 9 Ramon Reza PA-C [address] [place] [address] Assigned PCP 05/03/14 08/06/21 documented as of this encounter
--- OUTSIDE RECORDS SUMMARY | 2025-01-11 17:15 | XMS_ITS | Clinical Summary ---
Author Organization [place] Address [address] [place] [address] Care Team Providers Care Rn Security Name Role Phone Bianka Bourgeois PA-C Unavailable [phone] [facility] Primary Care Provider Allergies Active Allergy Reactions [...] Neuropsych evaluation for ADD completed: No Last [facility] website verification: 06.10.18 [email or web address] Lower urinary tract infectious disease 3 Overview [...] Answer Date Recorded PHQ-2 Score 2 02/15/2018 [place] Depression Scale Answer Date Recorded [place] Depression Score 1 11/27/2019 Last EPDS Self Harm Result Not on file 11/26 Adolescent Education Answer Date Record ed Getting School Help Needed Not on file 03/25 Comments No Sex and Gender Information Value Date Recorded Sex Assigned at Not on file Legal 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 RELIGION TEACHER Gender Identity Not on file Sexual Orientation [...] 1983 HEPATITIS C SCREENING 10/28/2001 HEPATITIS B VACCINE (1 of 3 - 19+ 3-dose series) 10/28/2002 DTAP/TDAP/TD VACCINE (1 - Tdap) 10/28/2008 YEARLY PREVENTIVE VISIT 08/17/2016 08/17/2015 PHQ-9 08/18/2018 02/15/2018, 01/0 02/2018, 05/14/2017, Additional history exists HPV TEST 05/21/2020 05/21/2019, 04/26, 02/15/2018 PAP 05/21/2020 05/21/2019, 04/26, 02/15/2018, Additional history exists LIPID 2023 COVID-19 VACCINE ( season) 2024 INFLUENZA VACCINE (#1) 2025 08/05/2018 (Declin ed) DIABETES SCREENING 03/11/2027 03/11/2024, 0 01/25/2021, 11/27/2019, Additional history exists ZOSTER VACCINE (1 of 2) 10/28/2033 MIGRAINE ACTION PLAN Completed 04/29/2014 DEPRESSION ACTION PLAN Completed 02/15/2018, 2016 HIV SCREENING Completed 05/21/2019, 04/26, 09/11/2011 HPV VACCINE Aged Out No longer eligi ble based on patient's age to complete this topic MENINGITIS VACCINE Aged Out No longer eligible based on patient's age to complete this topic PNEUMOCOCCAL VACCINE: PEDIATRICS (0 to 5 YEARS) AND AT-RISK PATIENTS (6 to 49 YEARS) Aged Out No longer eligible based on [...] MD LAB - BLOOD ORDERABLES Final Result [facility] [address] [facility] (1st floor, no room number) [place] [address], [facility] * HIV Antigen Antibody Combo (05/21/2019) HIV Antigen Antibody Combo negative Blood specimen (specimen) us Patient Reported LAB - BLOOD ORDERABLES Final Re sult * Pap imaged thin layer screen with HPV - recommended age 30 - 65 years (select HPV order below) (02/15/2018 9:58 AM CDT) PAP NIL COPATH Copath Report Patient Name: LAKESHIA GEIGER MR#: [id number] Specimen #: [id number] Collected: 02/15/2018 Received: 02/18/2018 Reported: 02/19/2018 10:04 [...] BRIDGET Diop (ASCP) Processed and screened at [facility] CLINICAL HISTORY: Currently not having periods, Intra-Uterine Device, A previous normal pap Date of Last Pap: 08/17/2015, Papanicolaou Test Limitations: Cervical cytology is a screening test with limited sensitivity; regular screening is critical for cancer prevention; Pap tests are primarily effective for the diagnosis/preventi on of squamous cell carcinoma, not adenocarcinomas or other cancers. TESTING LAB LOCATION: [facility] [place] [address] COLLECTION SITE: Client: [facility] Location: [facility] (R) COPATH Cytologic material (specimen) 02/15/2018 9:58 AM CDT 02/18/2018 8:49 AM CDT Marilu Gonzalez MD LAB - [facility] Fabio FIELDS Final Result COPATH * (ABNORMAL) HPV High Risk Types DNA Cervical (02/15/2018 9:54 AM CDT) HPV Source [facility] 02/20/2018 9:23 AM CDT [facility] HPV 16 DNA Negative NEG^Nega tive 02/20/2018 2:58 PM CDT [facility] HPV 18 DNA Negative NEG^Nega tive 02/20/2018 2:58 PM CDT [facility] Other HR HPV Positive(A) NEG^Nega tive 02/20/2018 2:58 PM CDT [facility] Final Diagnosis This patient's sample is positive for other HR HPV DNA (types 31, 33, 35, 39, 45, 51, 52, 56, 58, 59, 66 or 68), not HPV 16 or HPV 18 DNA. This result requires clinical correlation with concurrent cytology findings. 02/20/2018 2:58 PM CDT [facility] Comment: This test was developed and its performance characteristics determined by the [facility], [facility] Diagn[facility] Laboratory. It has not been [...] Description Cervical Cells 02/20/2018 9:23 AM CDT [facility] Comment:[id number] 02/15/2018 9:54 AM CDT 02/15/2018 10:04 AM CDT us Marilu Gonzalez MD LAB - BLOOD ORDERABLES Final Result [facility] [address] [place] [address] from Last 3 Months or Most Recently Relevant to Health Maintenance Insurance [employer] [facility] OUT OF STATE [employer] [place] [facility] STATE Advance Directives For more information, please contact: [phone] * Full Code (Latest Code Status on [...] 6:01 AM 12/25/2012 5:28 PM Care Teams Rn Security Relationship Specialty Start Date End Date [facility] - [address] [address] PCP - General Internal Medicine 09/26/19 Bianak Bourgeois PA-C Physician Bellstand Attendant 05/14/11
--- OUTSIDE RECORDS SUMMARY | 2025-01-11 17:15 | XMS_ITS | Encounter Summary ---
Author Organization [facility] Address [address] [place] [address] Care Team Providers Care Estimator Jewelry Name Role Phone Bianka Bourgeois PA-C Unavailable [phone] Bianka Bourgeois assistant county attorney Provider Unavailab Adrianna Britt APRN CELL EFFICIENCY SUPERVISOR Primary Care Provider Ramon Reza PA-C Primary Care Provider [phone] Amarilys Hernandez PILOT CAN ROUTER Unavailable Unavailable Ramon Reza PA-C Unavailable [phone] Chelsea Alcantar RN Unavailable [phone] Ramon Reza PA-C Unavailable [phone] [facility]- Primary Care Provider No Ref-Primary, Physician Primary Care Provider [facility] Primary Care Provider Reason for Visit * Reason Onset Date Comments Refill Request 03/03/2014 Encounter Details Date Type Department Care Team (Late st Contact Info) Description 03/03/2014 [facility] [address] [place] [address] Adrianna Leiva APRN CELL EFFICIENCY SUPERVISOR [address] [place] [address] Refill Request Social History Tobacco Use Types Packs/Day Years Used Date Smoking Tobacco: Never Alcohol Use Standard Drinks/Week Comments No 0 (1 standard drink = 0.6 oz pur e alcohol) Comments No Sex and Gender Information Value Date Recorded Sex Assigned at Not on file Legal 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 EXHIBITS COORDINATOR Gender Identity Not on file Sexual [...] like to get new rxs here at [place]. Retin A Fioricet Pleasesend new rxs if appropriate. Thank you, Michelle Vines, [facility] Float documented in this encounter Plan of Treatment Not on file documented as of this encounter Visit Diagnoses Not on filedocumented in this encounter Care Teams Estimator Jewelry Relationship Specialty Start Date End Date Bianka Bourgeois, [place] PCP - General 05/14/11 03/16/14 Adrianna Leiva APRN CNP [address] [place] [address] PCP - General Family Practice 03/17/14 04/27/14 Ramon Reza PA-C [address] [place] [address] PCP - General Physician Electric Golf Cart Repairers - Medical 04/28/14 09/23/18 Ramon Reza PA-C [address] [place] [address] PCP - Assigned PCP 05/03/14 08/27/18 [facility]- [address] [place] [address] PCP - General 09/24/18 10/23/18 No Ref-Primary, Physician PCP - General 10/24/18 09/25/[address] [id number] PCP - General Internal Medicine 09/26/19 Bianka Bourgeois PA-C Physician Electric Golf Cart Repairers 05/14/11 Amarilys Hernandez, [facility] Clinic Line Welder 03/22/18 Chelsea Alcantar, RN Lead Line Welder 07/03/18 9 Ramon Reza PA-C [address] [place] [address] Assigned PCP 05/03/14 08/06/21 documented as of this encounter
[2025-01-11 17:20] VITALS: BP 149/98; PULSE 72; RESP 20; TEMP 36.3; O2SAT 99; BMI 24.8
--- NOTE | 2025-01-11 18:24 | ED.GENADULT ---
HPI - General Adult General Date Seen: 01/11/25 Chief complaint: Headache/Migraine Stated complaint: Migraine Time Seen by Provider: 01/11/25 17:13 Source: patient Mode of arrival: ambulatory Limitations: no limitations History of Present Illness HPI narrative: Patient is a 39-year-old female with history of migraines presenting to the emergency department for a migraine. States this started about 2 days ago. She tried taking Imitrex and stay hydrated at that time and got a little bit improvement. Today the headache has persisted and she tried her medication again with no improvement. Due to that she has come to the emergency department. Has been here multiple times for her migraines before she states. He is says the medication and give her typically helps her symptoms. She cannot have Compazine. She does state her previous migraines have felt exactly like this. Denies any weakness or numbness. Does admit to some photophobia. Denies fevers, chills, chest pain, abdominal pain, shortness of breath. No other concerns noted at this time. Related Data Home Medications ?Medication ?Instructions ?Recorded ?Confirmed trazodone 50 mg tablet 50 mg PO PRN 02/13/22 09/08/22 irbesartan 150 mg tablet 150 mg PO DAILY 09/08/22 01/11/25 sumatriptan 20 mg/actuation nasal 20 mg intranasal Q2H PRN migraine 09/08/22 01/11/25 spray headache dextroamphetamine-amphetamine 10 1 tab PO BID 10/31/24 01/11/25 mg tablet dextroamphetamine-amphetamine ER 1 cap PO DAILY 10/31/24 01/11/25 30 mg 24hr capsule,extend release Allergies Allergy/AdvReac Type Severity Reaction Status Date / Time prochlorperazine (From Allergy Severe Verified 01/11/25 17:18 Compazine) Sulfa (Sulfonamide Allergy Severe Hives Verified 01/11/25 17:18 Antibiotics) fluticasone (From Flonase) Allergy Verified 01/11/25 17:18 hydrocodone AdvReac Unknown metabolizes Verified 01/11/25 17:18 too quickly Review of Systems Status of ROS: Reports: 10 or more systems reviewed and unremarkable except as noted in History and below [facility] Medical History History of asthma ?Z87.09 - Personal history of other diseases of the respiratory system (ICD-10) Surgical History History of dilation and curettage ?Z98.890 - Other specified postprocedural states (ICD-10) Family History Family/Other ADHD Social History Narrative: Rlgy-qw-rgly mom. . Nonsmoker. No illicit drug use. Smoking Status: Former smoker Do you use any of these nicotine containing products: None Second hand tobacco smoke exposure: No How often do you have a drink containing alcohol: never AUDIT-C Alcohol total score: 0 Non-prescribed substance use: denies use Exam Narrative: Exam Narrative: Const: Well-nourished, Well-developed, in moderate distress Eyes: PERRL, no conjunctival injection, and symmetrical lids HENT: Atraumatic external nose and ears. Moist mucous membranes. Neck: Symmetric, trachea midline, No thyromegaly. CVS: RRR, No murmurs or gallops. Peripheral pulses 2+ and equal in all extremities RESP: Unlabored respiratory effort. Clear to auscultation bilaterally. GI: Nontender/Nondistended, No rebound or guarding. MSK:Extremities w/o deformity, Normal Active ROM Skin: Warm, Dry. No rashes or lesions. Neuro: Normal Muscle tone, No focal neurological deficits. Psych: Awake, Alert, & Oriented x3. Appropriate mood and affect. Const: Vital Signs, click to edit/add: Vital Signs - 24 hr 01/11/25 17:20 Temperature 97.4 F L Pulse Rate [Pulse Oximeter] 72 Respiratory Rate 20 Blood Pressure [Ri ght Upper Arm] 149/98 H Pulse Oximetry 99 Oxygen Delivery Me thod Room Air Course Vital Signs Vital signs: Initial Vital Signs Temperature 97.4 F L 01/11/25 17:20 Temperature Source Temporal Artery Scan 01/11/25 17:20 Pulse Rate 72 01/11/25 17:20 Respiratory Rate 20 01/11/25 17:20 Blood Pressure 149/98 H 01/11/25 17:20 Blood Pressure Mean 115 H 01/11/25 17:20 Pulse Oximetry 99 01/11/25 17:20 Oxygen Delivery Method Room Air 01/11/25 17:20 Vital Signs Temperature 97.4 F L 01/11/25 17:20 Pulse Rate 72 01/11/25 17:20 Respiratory Rate 20 01/11/25 17:20 Blood Pressure 149/98 H 01/11/25 17:20 Pulse Oximetry 99 01/11/25 17:20 Oxygen Delivery Method Room Air 01/11/25 17:20 Temperature 97.4 F L 01/11/25 17:20 Pulse Rate 72 01/11/25 17:20 Respiratory Rate 20 01/11/25 17:20 Blood Pressure 149/98 H 01/11/25 17:20 Pulse Oximetry 99 01/11/25 17:20 Oxygen Delivery Method Room Air 01/11/25 17:20 Medications Administered Medications: Generic Name Dose Route Start Last Admin Trade Name Freq PRN Reason Stop Dose Admin Sodium Chloride 1,000 mls @ 1,000 mls/hr 01/11/25 19:30 01/11/25 19:30 0.9 % Sodium Chloride 1000 Ml IV 01/11/25 20:29 1,000 mls/hr .Q1H KARENA Administration Discontinued Medications Generic Name Dose Route Start Last Admin Trade Name Freq PRN Reason Stop Dose Admin Lactated Ringer's 1,000 mls @ 1,000 mls/hr 01/11/25 17:52 01/11/25 19:30 Lactated Ringers 1000 Ml IV 01/11/25 18:51 Infused .Q1H ONE Infusion Ketorolac Tromethamine 15 mg 01/11/25 17:52 01/11/25 18:46 Ketorolac 15 Mg/Ml Inj IVP 01/11/25 17:53 15 mg ONCE ONE Administration Ondansetron HCl 4 mg 01/11/25 17:52 01/11/25 18:46 Ondansetron 2 Mg/Ml Inj IVP 01/11/25 17:53 4 mg ONCE ONE Administration Medical Decision Making MDM Narrative Medical decision making narrative: Patient is a 39-year-old female presenting for headache. As she has have these migraines for similar multiple times before seems unlikely this is intracranial mass and do not believe imaging is necessary. She is also neurovascular intact. She states she usually gets better with a migraine cocktail and checking previous records are will give her L of fluids, Zofran, Toradol. Patient is states she is feeling better after medication. She still has a headache but the photophobia is mostly resolved headache does feel better. She would like another L of fluids and then discharged. Will give her a L fluids. She is safe for discharge. Discharge Plan Discharge Clinical Impression: Migraines Qualifiers: Migraine type: unspecified Status migrainosus presence: without status migrainosus Intractability: not intractable Qualified Code(s): G43.909 - Migraine, unspecified, not intractable, without status migrainosus Patient Disposition: Home, Self-Care Condition: Stable Instructions: Migraine Headache (ED) Additional Instructions: Continue to use your home migraine medications. Return to emergency department for new or worsened symptoms Prescriptions: No Action sumatriptan 20 mg/actuation spray,non-aerosol 20 mg intranasal Q2H PRN (Reason: migraine headache) Rx Instructions: ONE SPRAY IN ONE NOSTRIL AT ONSET OF HEADACHE, MAY REPEAT ONCE IN 2HRS PRN, MAX 2 SPRAYS/24 HR irbesartan 150 mg tablet 150 mg PO DAILY trazodone 50 mg tablet 50 mg PO PRN Patient Comments: TAKE ONE TO TWO TABLETS BY MOUTH AT BEDTIME IF NEEDED dextroamphetamine-amphetamine 10 mg tablet 1 tab PO BID dextroamphetamine-amphetamine 30 mg capsule,extended release 24hr 1 cap PO DAILY Follow Up/Referrals: Provider,Not a Local [Primary Care Provider, Family Practice] Stand Alone Forms: MyHealth Info Instructions
[2025-01-11] MEDS: LACTATED RINGERS 1000 ML 1,000 ML IV (18:35)
[2025-01-11] MEDS: ONDANSETRON 2 MG/ML inj 4 MG IVP (18:46)
== END 2025-01-11 20:10 | disposition home or self-care (01) ==
PROVIDERS: Emergency Provider Student in an Organized Health Care Education/Training Program
DX: G43.909 Migraine, unspecified, not intractable, without status migrainosus (principal)
CPT/HCPCS: 96374; 96375; 99284; J1885; J2405; J7030; J7120